=== PATIENT | male | born 1940 | race African-American/Black ===

== ENCOUNTER 2016-03-23 07:15 | Inpatient (IN) | payer OTHER, BC ==
[~2016-03-23 07:15] MED LIST: CHLORHEXIDINE GLUC HIBICLENS 118 ML BTL TP ONE; DEXAMETHASONE 10 MG/ML VIAL IVP ONE; ceFAZolin 2 GM/DEXTROSE 100 ML IV ONE
[2016-03-23] MEDS ORDERED: BACITRACIN 50,000 UNITS/10 ML SYR IRR ONE (07:24)
[2016-03-23] MEDS ORDERED: THROMBIN (RECOMBINANT) 20,000 UNIT VIAL TP ONE (07:24)
[2016-03-23] MEDS ORDERED: BUPIVACAINE/EPI 0.25% 30 ML SDV ONE (07:24)
[2016-03-23] MEDS ORDERED: DEXAMETHASONE 10 MG/ML VIAL ONE (09:29)
[2016-03-23] MEDS ORDERED: CEFAZOLIN 2 GM/DEXTROSE/100 ML BAG IV ONE (09:30)
[2016-03-23] MEDS ORDERED: fentaNYL 100 MCG/2 ML INJ ONE ×2 (10:26→15:09)
[2016-03-23] MEDS ORDERED: PROPOFOL/EMULSION 500 MG/50 ML BOTTLE IV ONE ×2 (10:26→14:56)
[2016-03-23] MEDS ORDERED: REMIFENTANIL HCL 1 MG VIAL ONE ×2 (10:26→13:00)
[2016-03-23] MEDS ORDERED: KETAMINE 100 MG/10 ML SYR IVP ONE (10:26)
[2016-03-23] MEDS ORDERED: SCOPOLAMINE HYDROBROMIDE 1.5 MG PATCH TD ONE (11:14)
[2016-03-23] MEDS ORDERED: SUCCINYLCHOLINE CHLORIDE*ANESTHESIA ONLY*200 MG/10 ML SYR IVP ONE (11:29)
[2016-03-23] MEDS ORDERED: epHEDrine SULFATE 10 MG/ML SYR ONE (12:10)
[2016-03-23] MEDS ORDERED: LR 1,000 ML IV ONE (12:22)
--- NOTE | 2016-03-23 15:04 | DX ---
Intraoperative Fluoroscopy of the Cervical Spine Clinical History: 75-year-old male undergoing a C4-C7 ACDF. Findings: Dr. Souleymane Sethi used 11.1 seconds of fluoroscopy time (exposure dose of 1.19 mGy), a nd a single spot matrix intraoperative image of the cervical spine was obtained at 2:34 p.m. identify ing anterior cervical diskectomy and fusion hardware from C4 to C7, with posterior alignment. Impression: Intraoperative fluoroscopy of the cervical spine.
--- NOTE | 2016-03-23 15:07 | POSTOPPROG ---
Post Op Note Date of Operation: 03/23/16 Surgeon: Souleymane Sethi Bakery Chef: Joshua Anesthesiologist: Belen Anesthesia: GET(General Endotracheal) Pre-op Diagnosis: Cervical stenosis Post-op Diagnosis: same Indication: Cervical myelopathy Procedure: C4-7 ACDF Findings: stenosis Inf/Abcess present in the surg proc area at time of surgery?: No EBL: 50-100 Drains: Alcon Monae (to bulb suction)
[2016-03-23] MEDS ORDERED: ACETAMINOPHEN 325 MG TAB PO PRN (15:08)
[2016-03-23] MEDS ORDERED: DIAZEPAM 5 MG TAB PO PRN (15:08)
[2016-03-23] MEDS ORDERED: morphINE PCA 30 MG/30 ML PCA IV PRN (15:08)
[2016-03-23] MEDS ORDERED: MAGNESIUM HYDROXIDE 30 ML UDCUP PO PRN (15:08)
[2016-03-23] MEDS ORDERED: ONDANSETRON 4 MG/2 ML VIAL IVP PRN (15:08)
[2016-03-23] MEDS ORDERED: DIAZEPAM 10 MG/2 ML SYR IVP PRN (15:08)
[2016-03-23] MEDS ORDERED: diphenhydrAMINE 25 MG CAP PO PRN (15:08)
[2016-03-23] MEDS ORDERED: MAG HYDROX/AL HYDROX/SIMETH 30 ML UDCUP PO PRN (15:08)
[2016-03-23] MEDS ORDERED: BISACODYL 10 MG SUPP PR PRN (15:08)
[2016-03-23] MEDS ORDERED: OXYCODONE/APAP 5/325 TAB PO PRN (15:08)
[2016-03-23] MEDS ORDERED: LACTULOSE 20 GM/30 ML UDCUP PO PRN (15:08)
[2016-03-23] MEDS ORDERED: NALOXONE HCL 0.4 MG/ML INJ IVP PRN (15:08)
[2016-03-23] MEDS ORDERED: ONDANSETRON DISINTEGRATING 4 MG TAB PO PRN (15:08)
[2016-03-23] MEDS ORDERED: HYDROmorphONE/DILAUDID 1 MG/ML SYR ONE ×3 (15:09→16:38)
[2016-03-23] MEDS ORDERED: ALBUTEROL 60 PUFFS/8 GM MDI IH PRN (15:17)
[2016-03-23] MEDS ORDERED: MIDAZOLAM 2 MG/2 ML VIAL ONE ×2 (15:20→16:04)
--- NOTE | 2016-03-23 15:25 | SOAPPROG ---
SOAP Progress Note Assessment/Plan: Assessment: status post C4-7 ACDF agitated, will get Versed per anesthesia Plan: CPM in PACU, NARAYAN to suction Transfer to floor per protocol Subjective: eyes open, agitated, not following commands, confused Objective: Vital Signs Temp Pulse Resp BP Pulse Ox 89 18 117/96 H 95 03/23/16 13:30 03/23/16 13:30 03/23/16 13:30 03/23/16 13:30 BP: 156/101 HR: 88 O2: 91% Neuro: Agitated, confused unable to follow commands but moves all extremities spontaneously with full strength ICD10 Worksheet Patient Problems: Problems Problem Status Diagnosed Chronic Disease Mgmt/Transitional Care Acute Chronic obstructive pulmonary disease with acute exacerbation Acute Hypoxia Acute
[2016-03-23] MEDS ORDERED: hydrALAZINE 20 MG/ML VIAL IVP PRN (16:18)
[2016-03-23] MEDS ORDERED: DIAZEPAM 10 MG/2 ML SYR ONE (16:47)
--- NOTE | 2016-03-23 16:49 | GOP ---
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 POSTOPERATIVE DIAGNOSIS: PROCEDURE PERFORMED: Multilevel surgical decompression, stabilization, partial C5 and C6 vertebral c orpectomies. FINDINGS: INDICATIONS: He presents now for multilevel surgical decompression and stabilization. Note that he a lso had spinal stenosis at C3-4 and we considered including that level as well, but because his sympt oms were not that severe and the 4 through 7 levels were worse, I thought that it was in his best int erest to leave that level out and see how he does first. If he has ongoing symptoms or shows signs of radiographic worsening over time, we can always go back and do that level later. I did not feel that it was in his best interest to do an extra level due to the increased risk of permanent swallowing d ifficulty and other issues. DESCRIPTION OF PROCEDURE: After informed was obtained, the patient was taken to the operating room a nd placed in supine position with the head in the halter retractor system. The anterior cervical barbara on was prepped and draped in a sterile fashion. After fluoroscopic localization of the correct levels , the subcutaneous and intramuscular tissues were infiltrated with local anesthesia. A horizontal incision was then created at the level of the C5-6 interspace. This was carried through the platysmal layer using monopolar electrocautery and carried in the avascular plane between the paty rnocleidomastoid and carotid sheath laterally and the strap muscles, trachea, esophagus medially down to the prevertebral fascia, which was carefully incised with Metzenbaum scissors. The very large ost eophyte especially at C5-6 but also at C4-5 and C6-7 were identified, and an extensive amount of time was spent removing these. The anatomy was very distorted and the dissection and exposure took approx imately 3-4 times as long as normal as well as the osteophytectomy. Eventually, I was able to define the normal anatomy and remove the extremely large osteophytes which were harvested for local autograf t. The distraction pins were then serially inserted first at C4-5, then at C5-6 and C6-7. During whic h time complete diskectomies were performed at each level with preparation of the endplates and remov al of the posterior longitudinal ligament and similarly protruding posterior osteophytes as well. Erlin e of these were loose, free floating pieces of bone that were very thoroughly and meticulously remove d. An extensive amount of drilling was required in order to remove the osteophytes and irregular endp lates and significant stenosis. Eventually, the C5 and C6 vertebral bodies were drilled out approxima tely 50% for a partial C5 and C6 vertebral corpectomy. Following adequate decompression, meticulous h emostasis was achieved and the wound, disk space and epidural space were copiously irrigated with ant ibiotic irrigation. The remaining endplates were carefully prepared and appropriately-sized lordotica lly fashioned structural PEEK interbody spacers packed with local autograft from the osteophytectomy/ partial corpectomies were placed in anterior to hold the graft in, which were then placed in the inte rspaces under fluoroscopic image guidance. The distraction was removed and an appropriately sized Stan tleLoc-P LNK anterior cervical plate was then placed from C4 through C7 with self-drilling screws. In traoperative biplanar fluoroscopy was utilized to verify good positioning. The remaining bone from th e partial corpectomies was then placed in the anterior hole of the plate and then gently packed in th e joints in order to enhance the likelihood of a fusion. The locking mechanism was engage d at all levels, after re-verification of good position of the plate and screws using biplanar fluoro scopy. A drain was placed. The subcutaneous and intramuscular tissues were re-infiltrated with local anesthe natalia and the wound was closed in a layered fashion using interrupted Vicryl sutures followed by Steri- Strips on the skin. /[id number]/MODL
[2016-03-23] MEDS ORDERED: DEXMEDETOMIDINE HCL 400 MCG in NS 100 ML IV SCH (17:30)
[2016-03-23] MEDS: METHOCARBAMOL 750 MG TAB PO PRN (18:31)
[2016-03-23] MEDS: POLYETHYLENE GLYCOL 3350 17 GM PKT PO SCH ×2 (18:33→22:47)
[2016-03-23] MEDS: NS W/ 20 KCl/L 1,000 ML IV SCH (18:34)
[2016-03-23] MEDS ORDERED: ALBUTEROL 3 ML DEYVIAL IH SCH (18:45)
[2016-03-23] MEDS ORDERED: ALBUTEROL 3 ML DEYVIAL IH PRN (19:46)
[2016-03-23] MEDS: Mometasone/Formoterol [Dulera 200 Mcg/5 Mcg Inhaler] 2 PUFFS) IH SCH (22:24)
[2016-03-23] MEDS: morphINE SR 15 MG TAB PO SCH (22:46)
[2016-03-23] MEDS: SENNOSIDES/DOCUSATE SODIUM TAB PO SCH (22:46)
[2016-03-23] MEDS: FAMOTIDINE 20 MG/NACL 50 ML IV SCH (22:46)
[2016-03-23] MEDS: metFORMIN HCL 850 MG TAB PO SCH (22:46)
[2016-03-24 06:32] LABS: % IMMATURE GRANULYOCYTES 0.3 % (0.0-1.1); ABSOLUTE IMMATURE GRANULOCYTES 0.04 10^3/uL (0.00-0.10); ADD DIFF? NO; ADD MORPH? NO; ADD SCAN? NO; ATYPICAL LYMPHOCYTE FLAG 0 (0-99); FRAGMENT RBC FLAG 0 (0-99); HEMATOCRIT 38.2 % (40.0-51.0); HEMOGLOBIN 12.6 g/dL (13.7-17.5); LEFT SHIFT FLG 0 (0-99); LIPEMIA HEMOLYSIS FLAG 80 (0-99); MEAN CELL HEMOGLOBIN 29.6 pg (27.9-34.1); MEAN CELL VOLUME 89.9 fL (81.5-99.8); MEAN PLATELET VOLUME 11.1 fL (8.7-11.7); PLATELET CLUMPS FLAG 0 (0-99); PLATELET COUNT 158 10^3/uL (150-400); RED BLOOD CELL COUNT 4.25 10^6/uL (4.40-6.38); RED CELL DISTRIBUTION WIDTH 13.5 % (11.5-15.2)
[2016-03-24 07:08] LABS: ANION GAP 10 mEq/L (8-16); CALCIUM 9.2 mg/dL (8.5-10.4); CARBON DIOXIDE 24 mEq/l (22-31); CHLORIDE 107 mEq/L (97-110); CREATININE 1.1 mg/dL (0.7-1.3); GLOMERULAR FILTRATION RATE > 60; GLUCOSE 134 mg/dL (70-100); POTASSIUM 4.1 mEq/L (3.5-5.2); SODIUM 141 mEq/L (134-144)
--- NOTE | 2016-03-24 08:52 | NEUSURGPN ---
Date of Surgery: 03/23/16 Post Op Day: 1 Assessment/Plan: Assessment: status post C4-7 ACDF doing well this AM, Agitation resolved, neuro stable feeling better overall stable for floor Plan: Transfer to Med/surg floor Continue NARAYAN to suction Needs cervical Xrays today Advance with PT/OT/ST D/W Dr. Das Subjective: Awake, alert, feeling better today Denies numbness or tingling Swallowing water "ok" Objective: NEURO: A+Ox4 follows commands, speech clear equal strength senst +LT Dressing : CDI NARAYAN: 230ml since surgery Urinary Catheter in Place: No Catheter Insertion Date: 03/23/16 Neurosurgery Physical Exam - Vitals, I&O, Labs I and O 03/23/16 03/24/16 03/25/16 05:59 05:59 05:59 Intake Total 3080 Output Total 1030 Balance 2049 Weight 86.183 kg Intake: Oral (ml) 260 IV Intake (ml) 1300 IV Infused (ml) 1520 ceFAZolin 1 GM/DEXTROSE 100 50 ml @ 200 mls/hr IV Q8HRS [facility] Rx#:[id number] Famotidine 20 mg/NaCl 50 50 ml @ 200 mls/hr IV Q12HRS [facility] Rx#:[id number] morphINE COMPUTER BOOKKEEPER See Protocol 10 IV PRN PRN Rx#: [id number] NS W/ 20 KCl/L 1,000 ml @ 1130 75 mls/hr IV CONT [facility] Rx #:[id number] Dexmedetomidine HCl 400 230 mcg In Ns 100 ml @ Titrate IV CONT [facility] Rx#: [id number] Output: Urine (ml) 650 Catheter 650 Estimated Blood Loss (ml) 150 Wound Drainage (ml) 230 #1 Left Anterior Neck 230 Vital Signs Temp Pulse Resp BP Pulse Ox 36.5 C 66 13 105/74 99 03/24/16 07:48 03/24/16 07:48 03/24/16 07:48 03/24/16 07:48 03/24/16 07:48 Laboratory Results 03/24/16 06:20 03/24/16 06:20 ICD10 Worksheet Patient Problems: Problems Problem Status Diagnosed Chronic Disease Mgmt/Transitional Care Acute Chronic obstructive pulmonary disease with acute exacerbation Acute Hypoxia Acute
[2016-03-24] MEDS ORDERED: TIOTROPIUM INHALER 18 MCG/DOSE 5 DOSE/MDI IH SCH (09:00)
[2016-03-24] MEDS: ATORVASTATIN CALCIUM 40 MG TAB PO SCH (10:04)
[2016-03-24] MEDS: metFORMIN HCL 850 MG TAB PO SCH ×2 (10:04→20:11)
[2016-03-24] MEDS: ENALAPRIL MALEATE 10 MG TAB PO SCH (10:20)
[2016-03-24] MEDS: morphINE SR 15 MG TAB PO SCH ×2 (10:51→20:11)
[2016-03-24] MEDS: FAMOTIDINE 20 MG/NACL 50 ML IV SCH ×2 (10:51→20:02)
[2016-03-24] MEDS: NEBIVOLOL HCL 5 MG TAB PO SCH (10:53)
[2016-03-24] MEDS: SENNOSIDES/DOCUSATE SODIUM TAB PO SCH ×2 (10:53→20:11)
[2016-03-24] MEDS: HYDROCHLOROTHIAZIDE 25 MG TAB PO SCH (10:57)
[2016-03-24] MEDS: Mometasone/Formoterol [Dulera 200 Mcg/5 Mcg Inhaler] 2 PUFFS) IH SCH ×2 (11:00→19:42)
[2016-03-24] MEDS: TIOTROPIUM INHALER 18 MCG/DOSE 5 DOSE/MDI IH SCH (11:00)
[2016-03-24] MEDS: POLYETHYLENE GLYCOL 3350 17 GM PKT PO SCH ×3 (11:18→20:10)
[2016-03-24] MEDS: METHOCARBAMOL 750 MG TAB PO PRN ×2 (11:29→20:11)
--- NOTE | 2016-03-24 13:18 | DX ---
Cervical Spine, Two Views History: Follow up fusion. Comparison: Intraoperative fluoroscopy March 23, 2016, MR cervical spine March 06, 2016. Findings: ACDF hardware from C4 through C7 is in expected position, with intervertebral graft materia l at all levels in expected positions. Trace anterolisthesis of C2 on C3 and C3 on C4 is unchanged. M ild vertebral and uncovertebral spondylosis at C3-C4 is noted. Moderate facet hypertrophy is present from C2 through C4. A prevertebral drain and diffuse prevertebral soft tissue swelling are noted. Car otid atherosclerosis is present, right greater than left. Impressions 1. Expected changes of ACDF from C4 through C7 2. Additional findings as above.
[2016-03-24] MEDS: NS W/ 20 KCl/L 1,000 ML IV SCH ×2 (16:19→18:08)
--- NOTE | 2016-03-24 16:20 | PDINTPN ---
Life Coach Progress Note Assessment/Plan: Assessment: #Neck surgery with an excellent post op course #COPD moderately severe, without dyspnea or cough #Dysphagia, Plan: nebs prn NPO except for applesauce. This should improve over the next few days 03/24/16 16:18 Subjective: Thirsty Objective: Vital Signs Temp Pulse Resp BP Pulse Ox 37.4 C 79 16 127/69 H 96 03/24/16 16:00 03/24/16 16:00 03/24/16 16:00 03/24/16 16:00 03/24/16 16:00 Laboratory Results 03/24/16 06:20 03/24/16 06:20 03/23/16 03/24/16 03/25/16 05:59 05:59 05:59 Intake Total 3080 Output Total 1030 100 Balance 2049 Physical Exam - Physical Exam General Appearance: alert, mild distress EENT: normal ENT inspection Neck: other (Hard collar) Respiratory: lungs clear, decreased breath sounds Cardiac/Chest: regular rate, rhythm Abdomen: non-tender, soft Back: Normal inspection Skin: warm/dry Lymphatic: no adenopathy Extremities: non-tender, No pedal edema Neuro/Psych: alert, oriented x 3 ICD10 Worksheet Patient Problems: Problems Problem Status Diagnosed Chronic Disease Mgmt/Transitional Care Acute Chronic obstructive pulmonary disease with acute exacerbation Acute Hypoxia Acute
[2016-03-24] MEDS: HYDROCODONE/APAP 5/325 TAB PO PRN (21:28)
[2016-03-25] MEDS: NS W/ 20 KCl/L 1,000 ML IV SCH ×3 (05:13→20:53)
[2016-03-25] MEDS: METHOCARBAMOL 750 MG TAB PO PRN ×3 (05:13→20:41)
[2016-03-25] MEDS: HYDROCODONE/APAP 5/325 TAB PO PRN (05:14)
--- NOTE | 2016-03-25 07:47 | NEUSURGPN ---
Assessment/Plan: Assessment: status post C4-7 ACDF Plan: dc NARAYAN drain Cervical xrays with intact hardware Optimize pain management Advance with PT/OT/ST D/W Dr. Das Subjective: Pain improved with current regiment Objective: NAD A&Ox3 MAEx4 5/5 and equal in BUE and BLE. Neck soft, flat Catheter Insertion Date: 03/23/16 - Physician Discussed Patient with DrBelen: Jossie Roldan Physical Exam - Vitals, I&O, Labs I and O 03/24/16 03/25/16 03/26/16 05:59 05:59 05:59 Intake Total 3080 950 Output Total 1030 1030 Balance 2049 Weight 86.183 kg Intake: Oral (ml) 260 IV Intake (ml) 1300 IV Infused (ml) 1520 950 ceFAZolin 1 GM/DEXTROSE 100 50 ml @ 200 mls/hr IV Q8HRS [facility] Rx#:[id number] Famotidine 20 mg/NaCl 50 50 50 ml @ 200 mls/hr IV Q12HRS [facility] Rx#:[id number] morphINE HERD TESTER See Protocol 10 IV PRN PRN Rx#: [id number] NS W/ 20 KCl/L 1,000 ml @ 1130 900 75 mls/hr IV CONT [facility] Rx #:[id number] Dexmedetomidine HCl 400 230 mcg In Ns 100 ml @ Titrate IV CONT [facility] Rx#: [id number] Output: Urine (ml) 650 1000 Catheter 650 Toilet 100 Urinal 900 Estimated Blood Loss (ml) 150 Wound Drainage (ml) 230 30 #1 Left Anterior Neck 230 30 Other: Number of Voids Toilet 1 Urinal 2 Vital Signs Temp Pulse Resp BP Pulse Ox 36.6 C 72 16 141/84 H 97 03/25/16 05:07 03/25/16 05:07 03/25/16 05:07 03/25/16 05:07 03/25/16 05:07 Laboratory Results 03/24/16 06:20 03/24/16 06:20 ICD10 Worksheet Patient Problems: Problems Problem Status Diagnosed Chronic Disease Mgmt/Transitional Care Acute Chronic obstructive pulmonary disease with acute exacerbation Acute Hypoxia Acute
[2016-03-25] MEDS: TIOTROPIUM INHALER 18 MCG/DOSE 5 DOSE/MDI IH SCH (08:53)
[2016-03-25] MEDS: Mometasone/Formoterol [Dulera 200 Mcg/5 Mcg Inhaler] 2 PUFFS) IH SCH ×2 (08:53→20:38)
[2016-03-25] MEDS: ENOXAPARIN 40 MG/0.4 ML SYR SC SCH (09:13)
[2016-03-25] MEDS: HYDROCHLOROTHIAZIDE 25 MG TAB PO SCH (09:13)
[2016-03-25] MEDS: NEBIVOLOL HCL 5 MG TAB PO SCH (09:13)
[2016-03-25] MEDS: SENNOSIDES/DOCUSATE SODIUM TAB PO SCH ×2 (09:14→20:41)
[2016-03-25] MEDS: morphINE SR 15 MG TAB PO SCH ×2 (09:14→20:41)
[2016-03-25] MEDS: POLYETHYLENE GLYCOL 3350 17 GM PKT PO SCH ×3 (09:14→20:41)
[2016-03-25] MEDS: ATORVASTATIN CALCIUM 40 MG TAB PO SCH (09:14)
[2016-03-25] MEDS: metFORMIN HCL 850 MG TAB PO SCH ×2 (10:18→20:40)
[2016-03-25] MEDS: FAMOTIDINE 20 MG TAB PO SCH ×2 (10:18→20:41)
[2016-03-25] MEDS: ENALAPRIL MALEATE 10 MG TAB PO SCH (10:18)
[2016-03-25] MEDS: FAMOTIDINE 20 MG/NACL 50 ML IV SCH (10:28)
--- NOTE | 2016-03-25 16:29 | PDINTPN ---
Shoe Repairer Helper Progress Note Assessment/Plan: Assessment: #Neck surgery with an excellent post op course #COPD moderately severe, without dyspnea or cough. He feels his lungs are good #Dysphagia, but he is eating and drinking well today Plan: nebs prn Ambulation 03/25/16 16:27 Subjective: No complaints Objective: Vital Signs Temp Pulse Resp BP Pulse Ox 37.2 C 76 17 158/91 H 94 03/25/16 15:47 03/25/16 15:47 03/25/16 15:47 03/25/16 15:47 03/25/16 15:47 Laboratory Results 03/24/16 06:20 03/24/16 06:20 03/24/16 03/25/16 03/26/16 05:59 05:59 05:59 Intake Total 3080 950 Output Total 1030 1030 425 Balance 2049 Physical Exam - Physical Exam General Appearance: no apparent distress EENT: normal ENT inspection Neck: other (hard collar) Respiratory: lungs clear Cardiac/Chest: regular rate, rhythm Abdomen: non-tender Back: Normal inspection Skin: warm/dry Lymphatic: no adenopathy Extremities: non-tender, No pedal edema Neuro/Psych: alert ICD10 Worksheet Patient Problems: Problems Problem Status Diagnosed Chronic Disease Mgmt/Transitional Care Acute Chronic obstructive pulmonary disease with acute exacerbation Acute Hypoxia Acute
[2016-03-26] MEDS: Mometasone/Formoterol [Dulera 200 Mcg/5 Mcg Inhaler] 2 PUFFS) IH SCH (08:31)
[2016-03-26] MEDS: TIOTROPIUM INHALER 18 MCG/DOSE 5 DOSE/MDI IH SCH (08:31)
[2016-03-26 08:41] VITALS: RESP 14
--- NOTE | 2016-03-26 09:01 | NEUSURGPN ---
Assessment/Plan: 75 y M status post C4-7 ACDF - overall doing much better with his mentation - pain appears to be well-controlled - I have stopped his Morphine products per family request as it made him confused and agitated. - continue with PT/OT/ST - okay to dc home this morning if cleared by Speech/swallow and taking adequate intake PO - scripts for [place] and Valium/Robaxin on his chart for home (scripts for Morphone products have been removed) Subjective: Pain and swallowing and mentation improved with current regiment Objective: Cervical collar in place NAD A&Ox3 MAEx4 5/5 and equal in BUE and BLE. Neck soft, flat Anterior dressing and wound are clean, dry, and intact. Urinary Catheter in Place: No Catheter Insertion Date: 03/23/16 Neurosurgery Physical Exam - Vitals, I&O, Labs I and O 03/25/16 03/26/16 03/27/16 05:59 05:59 05:59 Intake Total 950 1527 Output Total 1030 1625 Balance -80 -98 Intake: Oral (ml) 340 IV Infused (ml) 950 1187 Famotidine 20 mg/NaCl 50 50 ml @ 200 mls/hr IV Q12HRS [facility] Rx#:[id number] NS W/ 20 KCl/L 1,000 ml @ 900 1187 75 mls/hr IV CONT [facility] Rx #:[id number] Output: Urine (ml) 1000 1625 Toilet 100 Urinal 900 1625 Wound Drainage (ml) 30 #1 Left Anterior Neck 30 Other: Number of Voids Toilet 1 2 1 Urinal 2 Vital Signs Temp Pulse Resp BP Pulse Ox 36.8 C 89 14 158/95 H 93 03/25/16 22:49 03/26/16 08:35 03/26/16 08:35 03/26/16 04:36 03/26/16 08:35 Laboratory Results 03/24/16 06:20 03/24/16 06:20 ICD10 Worksheet Patient Problems: Problems Problem Status Diagnosed Chronic Disease Mgmt/Transitional Care Acute Chronic obstructive pulmonary disease with acute exacerbation Acute Hypoxia Acute
[2016-03-26] MEDS: NEBIVOLOL HCL 5 MG TAB PO SCH (09:32)
[2016-03-26] MEDS: POLYETHYLENE GLYCOL 3350 17 GM PKT PO SCH (09:32)
[2016-03-26] MEDS: metFORMIN HCL 850 MG TAB PO SCH (09:32)
[2016-03-26] MEDS: HYDROCHLOROTHIAZIDE 25 MG TAB PO SCH (09:33)
[2016-03-26] MEDS: SENNOSIDES/DOCUSATE SODIUM TAB PO SCH (09:33)
[2016-03-26] MEDS: FAMOTIDINE 20 MG TAB PO SCH (09:33)
[2016-03-26] MEDS: ENOXAPARIN 40 MG/0.4 ML SYR SC SCH (09:33)
[2016-03-26] MEDS: ENALAPRIL MALEATE 10 MG TAB PO SCH (09:33)
[2016-03-26] MEDS: ATORVASTATIN CALCIUM 40 MG TAB PO SCH (09:43)
[2016-03-26 12:10] VITALS: BP 142/87; PULSE 81; TEMP 99; O2SAT 92
== END 2016-03-26 15:07 | disposition home or self-care (01) | DRG 473 ==
LOC: F3N 09:01 → OBSVTOIN 15:09 → F2N 18:08 → F3N 03-24 18:02
PROVIDERS: ADMIT Neurological Surgery; ATTEND Neurological Surgery
PROC: 00NW0ZZ Release Cervical Spinal Cord, Open Approach (ICD-10-PCS; principal; 2016-03-23 11:45)
PROC: 0RG20A0 Fusion of 2 or more Cervical Vertebral Joints with Interbody Fusion Device, Anterior Approach, Anterior Column, Open Approach (ICD-10-PCS; principal; 2016-03-23 11:45)
DX: M47.12 Other spondylosis with myelopathy, cervical region (principal); M50.30 Other cervical disc degeneration, unspecified cervical region; M50.20 Other cervical disc displacement, unspecified cervical region; I25.10 Atherosclerotic heart disease of native coronary artery without angina pectoris; I35.0 Nonrheumatic aortic (valve) stenosis; J44.9 Chronic obstructive pulmonary disease, unspecified; R13.10 Dysphagia, unspecified; E78.5 Hyperlipidemia, unspecified; E11.9 Type 2 diabetes mellitus without complications; Z85.6 Personal history of leukemia
CPT/HCPCS: 92526-GN; 92610-GN; 97001-GP; 97003-GO; 97116-GP; 97535-GO; C1713; G8978-GP-CI; G8978-GP-CJ; G8979-GP-CI; G8980-GP-CI; G8987-GO-CL; G8988-GO-CI; G8996-GN-CL; G8997-GN-CI; J0330; J0690; J1170; J1650; J2250; J2270; J2405; J2704; J3010

== ENCOUNTER 2016-05-04 05:41 | Inpatient (IN) | payer OTHER, BC ==
[2016-05-04] MEDS ORDERED: LIDOCAINE 1% 5 ML SDV ID PRN (05:52)
[2016-05-04] MEDS ORDERED: LR 1,000 ML IV ONE (05:52)
[2016-05-04] MEDS ORDERED: LIDOCAINE 1% 5 ML SDV ONE (05:55)
[2016-05-04] MEDS ORDERED: fentaNYL 100 MCG/2 ML INJ IT ONE ×3 (06:00→14:30)
[2016-05-04] MEDS ORDERED: DEXAMETHASONE 4 MG/ML VIAL IVP ONE ×2 (06:00)
[2016-05-04] MEDS ORDERED: morphINE PF 5 MG/10 ML INJ IT ONE ×3 (06:00→14:30)
[2016-05-04] MEDS ORDERED: ceFAZolin 2 GM/DEXTROSE 100 ML IV ONE ×2 (06:00)
[2016-05-04] MEDS ORDERED: CHLORHEXIDINE GLUC HIBICLENS 118 ML BTL TP ONE ×2 (06:00)
[2016-05-04] MEDS ORDERED: THROMBIN (RECOMBINANT) 20,000 UNIT VIAL TP ONE ×2 (06:30→10:21)
[2016-05-04] MEDS ORDERED: BUPIVACAINE 0.25% 30 ML SDV ONE (06:30)
[2016-05-04] MEDS ORDERED: BACITRACIN 50,000 UNITS/10 ML SYR IRR ONE ×3 (06:30→13:08)
[2016-05-04] MEDS ORDERED: BUPIVACAINE/EPI 0.25% 30 ML SDV ONE (06:30)
[2016-05-04] MEDS ORDERED: CITRATE DEXTROSE SOLN 500 ML BAG ONE (06:31)
[2016-05-04] MEDS ORDERED: PROPOFOL/EMULSION 500 MG/50 ML BOTTLE IV ONE ×3 (06:56→10:17)
[2016-05-04] MEDS ORDERED: fentaNYL 100 MCG/2 ML INJ ONE ×3 (06:56→12:20)
[2016-05-04] MEDS ORDERED: REMIFENTANIL HCL 1 MG VIAL ONE ×2 (07:49→10:19)
[2016-05-04] MEDS ORDERED: INSULIN REGULAR HUMAN 100 UNIT/ML ONE (10:39)
[2016-05-04] MEDS ORDERED: morphINE PF 5 MG/10 ML INJ ONE (12:19)
[2016-05-04] MEDS ORDERED: HYDROmorphONE/DILAUDID 2 MG/ML SYR ONE (12:34)
[2016-05-04] MEDS: CLOPIDOGREL BISULFATE 75 MG TAB PO SCH (14:00)
[2016-05-04] MEDS ORDERED: ACETAMINOPHEN 325 MG TAB PO PRN (14:07)
[2016-05-04] MEDS ORDERED: oxyCODONE IR 5 MG TAB PO PRN (14:07)
[2016-05-04] MEDS ORDERED: DIAZEPAM 5 MG TAB PO PRN (14:07)
[2016-05-04] MEDS ORDERED: ONDANSETRON DISINTEGRATING 4 MG TAB PO PRN (14:07)
[2016-05-04] MEDS ORDERED: BISACODYL 10 MG SUPP PR PRN (14:07)
[2016-05-04] MEDS ORDERED: diphenhydrAMINE 25 MG CAP PO PRN (14:07)
[2016-05-04] MEDS ORDERED: HYDROmorphONE/DILAUDID 6 MG/30 ML PCA IV PRN (14:07)
[2016-05-04] MEDS ORDERED: NALOXONE HCL 0.4 MG/ML INJ IVP PRN (14:07)
[2016-05-04] MEDS ORDERED: LACTULOSE 20 GM/30 ML UDCUP PO PRN (14:07)
--- NOTE | 2016-05-04 14:13 | POSTOPPROG ---
Post Op Note Date of Operation: 05/04/16 Surgeon: Souleymane Sethi Coke Handling Supervisor: Harvinder Anesthesiologist: Lee Anesthesia: GET(General Endotracheal) Pre-op Diagnosis: lumar DJD Post-op Diagnosis: same Indication: low back pain, left leg pain Procedure: L2-S1 TLIF Findings: DJD/hnp/stenosis Inf/Abcess present in the surg proc area at time of surgery?: No EBL: Greater than 1000 (1400 ml EBL) Complications: None Drains: Alcon Monae
--- NOTE | 2016-05-04 14:15 | SOAPPROG ---
SOAP Progress Note Assessment/Plan: Assessment: 75 yo M sp L2-S1 TLIF Plan: stable PT/OT follow hg/hct please call with neuro changes 05/04/16 14:13 Subjective: + back pain, no leg pain Objective: somnolent awakes to verbal stimuli MALIK x 4 but not to command + light touch ICD10 Worksheet Patient Problems: Problems Problem Status Diagnosed Chronic Disease Mgmt/Transitional Care Acute Chronic obstructive pulmonary disease with acute exacerbation Acute Fusion of spine of lumbar region Acute Hypoxia Acute - ICD10 Problem Qualifiers (1) Fusion of spine of lumbar region
--- NOTE | 2016-05-04 14:54 | DX ---
Intraoperative fluoroscopy. 05/04/2016 History: Lumbar spine surgery Discussion: 49 seconds of fluoroscopy time were utilized by Dr. Sethi during lumbar spine ins trumentation and fusion. Radiographs obtained during the procedure demonstrate placement of bilateral pedicle screws at L2-S1 with posterior david fixation and intervertebral graft.. Impression: Intraoperative fluoroscopy during lumbar spine instrumentation and fusion..
[2016-05-04] MEDS: NS W/ 20 KCl/L 1,000 ML IV SCH (15:41)
[2016-05-04] MEDS: POLYETHYLENE GLYCOL 3350 17 GM PKT PO SCH ×2 (15:41→21:50)
[2016-05-04] MEDS ORDERED: ALBUTEROL 60 PUFFS/8 GM MDI IH PRN (15:57)
[2016-05-04] MEDS: ALBUTEROL SULFATE 0.63 MG IH SCH ×2 (16:22→16:32)
[2016-05-04] MEDS: ONDANSETRON 4 MG/2 ML VIAL IVP PRN ×2 (16:30→21:50)
[2016-05-04] MEDS ORDERED: ALBUTEROL 3 ML DEYVIAL IH PRN (16:47)
--- NOTE | 2016-05-04 16:56 | GOP ---
[f rep st] OPERATIVE REPORT DATE OF OPERATION: 05/04/2016 SURGEON: Souleymane Sethi MD [employer]: [employer]. ANESTHESIA: General endotracheal. PREOPERATIVE DIAGNOSIS: Severe multilevel lumbar degenerative scoliosis with severe spinal stenosis and multilevel disk herniations. Intractable back and left leg pain, failed conservative care. High risk surgical candidate given age of 75 years, comorbidities, and required surgical intervention. POSTOPERATIVE DIAGNOSIS: Severe multilevel lumbar degenerative scoliosis with severe spinal stenosis and multilevel disk herniations. Intractable back and left leg pain, failed conservative care. Hig h risk surgical candidate given age of 75 years, comorbidities, and required surgical intervention. PROCEDURE PERFORMED: Left-sided L2-3, L3-4, L4-5, and L5-S1 far lateral transfacet transpedicular de compression with L2 through S1 posterior segmental (pedicle screw and Axle device) fixation and poste rolateral fusion with local autograft and bone morphogenic protein and morselized allograft L2-3, L3- 4, L4-5, and L5-S1 posterior/transforaminal lumbar interbody fusion with 2 structural PEEK interbody spacers, local autograft and bone morphogenic protein for L2-3, L3-4, L4-5, and L5-S1 posterior/trans foraminal lumbar interbody fusions. Use of intraoperative microscopy, fluoroscopy, and computer volu metric stereotactic navigation with intraoperative neurophysiologic testing. Injection of intratheca l narcotic analgesics for postoperative pain control. FINDINGS: ESTIMATED BLOOD LOSS: 1400 cc. INDICATIONS: The patient is a 75-year-old male with severe multilevel lumbar degenerative joint dise ase, some scoliosis, and severe spinal stenosis, lateral recess and foraminal impingement, secondary to severe facet hypertrophy and multiple disk herniations. He presents now for a multilevel lumbar d ecompression and stabilization after failing extensive conservative care. DESCRIPTION OF PROCEDURE: After informed consent was obtained, patient was taken to the operating ro om and placed in the prone position on the Alcon table. The lumbosacral area was prepped and drape d in a sterile fashion. After fluoroscopic localization of the correct levels, the subcutaneous and intramuscular tissues were infiltrated with local anesthesia. A midline linear incision was then cre ated from approximately L2 through S1. This was carried down to the fascial layer, which was then in cised using monopolar electrocautery and carried in the subperiosteal plane along the spinous process es and lamina bilaterally. Intraoperative fluoroscopy was again utilized to verify the correct level s. Following this, the dissection was carried out over the facet joints to the transverse processes. The microscope was then brought in, and after re-verification of the correct levels, left-sided far lateral transfacet transpedicular decompressions were performed with complete unroofing of the facet joints and neural foramina. Note that the patient had prior laminotomy defects at L4-5 and L5-S1, s o redo hemilaminotomies were performed at those levels. There was an extensive amount of scar tissue , which required meticulous dissection under high-power microscopy. This was very time-consuming, an d the patient was slightly more oozy than normal, and he bled a fair bit partially due to the signifi cant amount of scar tissue. Care was taken to very carefully outline the nerve roots and thecal sac at each of the levels, including L2-3, L3-4, L4-5 and L5-S1. Following adequate decompression, the [facility] neuron[facility]igational system was brought in, and using computer volumetric stereotactic navigation , pedicle screws were placed at L2, L3, L4, L5, and S1 bilaterally. Each individual screw was tested neurophysiologically with monopolar electrostimulation, and interpretation of the potentials by the surgeon. Serial short rods were then placed first at L5-S1, then at L4-5, then at L3-4, then at L2-3 , during which time each of the individual levels were under distraction. Complete diskectomies were performed at each level with preparation of the endplates and placement of 2 structural PEEK interbo dy spacers, local autograft and bone morphogenic protein for L2-3, L3-4, L4-5 and L5-S1 posterior/tra nsforaminal lumbar interbody fusions. Note that there was significant lateral recess, neural foramin al, and central canal stenosis at all of the 4 levels. There was a very large disk herniation on the left at the L3-4 level that extended across the midline and required an extensive amount of careful dissection under high-power microscopy in order to remove all of this large free fragment disk hernia tion. Following placement of all the screws and interbody spacers, longer rods were then contoured a nd placed and secured under maximal lordosis and a slight amount of compression across each interspac e in order to facilitate bony union and to minimize the potential for posterior graft migration. Fol lowing re-verification of good positioning of the screws, rods, and interbody spacers using biplanar fluoroscopy, axial devices were placed at L2-3 and L5-S1 due to the fact that the patient had somewha t soft bone and I was concerned about the risk of screw pull out, hardware failure, and nonunion. Fo llowing this, 200 mcg of Duramorph, along with 50 mcg of fentanyl were injected intrathecally for pos toperative pain control. The right-sided remaining lamina and facet joints were extensively decortic ated, the residual local autograft along with bone morphogenic protein was placed out laterally for p osterolateral fusion from L2 through S1. 15 cc of morselized allograft were also added to this. A d rain was then placed. The subcutaneous and intramuscular tissues were re-infiltrated with local anes thesia, and the wound was closed in a layered fashion using interrupted Vicryl sutures followed by St rosie-Strips on the skin. COMPLICATIONS: None. DISPOSITION: The patient was extubated and transferred to the recovery room in stable condition. /[id number]/MODL
[2016-05-04] MEDS ORDERED: NS BOLUS 1000 ML (Wide open) IV ONE (17:30)
[2016-05-04 18:04] LABS: HEMATOCRIT 34.3 % (40.0-51.0); HEMOGLOBIN 10.6 g/dL (13.7-17.5); MEAN CELL HEMOGLOBIN 28.3 pg (27.9-34.1); MEAN CELL HEMOGLOBIN CONCENTR. 30.9 g/dL (32.4-36.7); MEAN CELL VOLUME 91.5 fL (81.5-99.8); RED BLOOD CELL COUNT 3.75 10^6/uL (4.40-6.38); RED CELL DISTRIBUTION WIDTH 13.6 % (11.5-15.2)
[2016-05-04 18:36] LABS: ANION GAP 7 mEq/L (8-16); CALCIUM 9.2 mg/dL (8.5-10.4); CARBON DIOXIDE 24 mEq/l (22-31); CHLORIDE 109 mEq/L (97-110); CREATININE 1.1 mg/dL (0.7-1.3); GLOMERULAR FILTRATION RATE > 60; GLUCOSE 179 mg/dL (70-100); SODIUM 140 mEq/L (134-144)
[2016-05-04] MEDS: morphINE SR 15 MG TAB PO SCH (19:45)
[2016-05-04] MEDS: METHOCARBAMOL 750 MG TAB PO PRN (19:45)
[2016-05-04] MEDS: FAMOTIDINE 20 MG TAB PO SCH (19:46)
[2016-05-04] MEDS: SENNOSIDES/DOCUSATE SODIUM TAB PO SCH (19:46)
[2016-05-04] MEDS: DIAZEPAM 10 MG/2 ML SYR IVP PRN (20:00)
[2016-05-04] MEDS ORDERED: FAMOTIDINE 20 MG/NACL 50 ML IV SCH (21:00)
[2016-05-04] MEDS: Mometasone/Formoterol [Dulera 200 Mcg/5 Mcg Inhaler] 2 PUFFS IH SCH (21:25)
[2016-05-04] MEDS: HYDROmorphONE/DILAUDID 1 MG/ML SYR IVP PRN (22:19)
[2016-05-05] MEDS: NS W/ 20 KCl/L 1,000 ML IV SCH (01:09)
[2016-05-05] MEDS: DIAZEPAM 10 MG/2 ML SYR IVP PRN (01:59)
[2016-05-05] MEDS: HYDROmorphONE/DILAUDID 1 MG/ML SYR IVP PRN ×4 (05:18→21:59)
[2016-05-05 05:20] LABS: % IMMATURE GRANULYOCYTES 0.7 % (0.0-1.1); ABSOLUTE IMMATURE GRANULOCYTES 0.13 10^3/uL (0.00-0.10); ADD DIFF? NO; ADD MORPH? NO; ADD SCAN? NO; ATYPICAL LYMPHOCYTE FLAG 10 (0-99); FRAGMENT RBC FLAG 0 (0-99); HEMATOCRIT 31.2 % (40.0-51.0); HEMOGLOBIN 9.7 g/dL (13.7-17.5); LEFT SHIFT FLG 10 (0-99); LIPEMIA HEMOLYSIS FLAG 80 (0-99); MEAN CELL HEMOGLOBIN 29.7 pg (27.9-34.1); MEAN CELL HEMOGLOBIN CONCENTR. 31.1 g/dL (32.4-36.7); MEAN CELL VOLUME 95.4 fL (81.5-99.8); MEAN PLATELET VOLUME 11.9 fL (8.7-11.7); PLATELET CLUMPS FLAG 0 (0-99); PLATELET COUNT 139 10^3/uL (150-400); RED BLOOD CELL COUNT 3.27 10^6/uL (4.40-6.38); RED CELL DISTRIBUTION WIDTH 13.9 % (11.5-15.2)
[2016-05-05 05:33] LABS: ANION GAP 8 mEq/L (8-16); CALCIUM 9.1 mg/dL (8.5-10.4); CARBON DIOXIDE 24 mEq/l (22-31); CHLORIDE 111 mEq/L (97-110); CREATININE 1.1 mg/dL (0.7-1.3); GLOMERULAR FILTRATION RATE > 60; GLUCOSE 124 mg/dL (70-100); POTASSIUM 4.9 mEq/L (3.5-5.2); SODIUM 143 mEq/L (134-144)
[2016-05-05] MEDS ORDERED: PROMETHAZINE HCL 25 MG/ML INJ IVP PRN (07:50)
[2016-05-05] MEDS ORDERED: ENALAPRIL PO SCH (09:00)
[2016-05-05] MEDS ORDERED: [UNRECOGNIZED DRUG - OTHER] PO SCH (09:00)
[2016-05-05] MEDS ORDERED: HYDROCHLOROTHIAZIDE PO SCH (09:00)
[2016-05-05] MEDS ORDERED: NEBIVOLOL HCL 5 MG TAB PO SCH (09:00)
[2016-05-05] MEDS: ATORVASTATIN CALCIUM 40 MG TAB PO SCH (09:03)
[2016-05-05] MEDS: NEBIVOLOL 2.5 MG PO SCH (09:04)
[2016-05-05] MEDS: TIOTROPIUM INHALER 18 MCG/DOSE 5 DOSE/MDI IH SCH (09:05)
[2016-05-05] MEDS: Mometasone/Formoterol [Dulera 200 Mcg/5 Mcg Inhaler] 2 PUFFS IH SCH ×2 (09:07→21:59)
[2016-05-05] MEDS: amLODIPine BESYLATE 5 MG TAB PO SCH (09:12)
[2016-05-05] MEDS: FAMOTIDINE 20 MG TAB PO SCH ×2 (09:12→19:51)
[2016-05-05] MEDS: HYDROCHLOROTHIAZIDE 25 MG TAB PO SCH (09:13)
[2016-05-05] MEDS: ENALAPRIL MALEATE 10 MG TAB PO SCH (09:13)
[2016-05-05] MEDS: morphINE SR 15 MG TAB PO SCH ×2 (09:13→19:51)
[2016-05-05] MEDS: ENOXAPARIN 40 MG/0.4 ML SYR SC SCH (09:13)
[2016-05-05] MEDS: SENNOSIDES/DOCUSATE SODIUM TAB PO SCH ×2 (09:13→19:51)
[2016-05-05] MEDS: POLYETHYLENE GLYCOL 3350 17 GM PKT PO SCH ×3 (09:13→19:57)
--- NOTE | 2016-05-05 09:27 | NEUSURGPN ---
Date of Surgery: 05/04/16 Post Op Day: 1 Assessment/Plan: POD #1 s/p L2-S1 TLIF left hip pain resolved, Mentation clear Pain well controlled low urine output Plan: Bolus with 1 liter NS and then maintenance rate of 150ml/hr, remove K in IV fluids due to K of 4.9 this AM PT/OT as tolerated LSO when out of bed COntinue NARAYAN drain Lovenox starts today LUmbar xrays when he can tolerate Subjective: in bed, pain well controlled. he reports his left hip pain has resolved denies new numbness, tingling or weakness. Objective: NEURO DELATORRE, SEns +LT Dressing: Reinforced overnight. some mild blood saturation NARAYAN: 490ML Urinary Catheter in Place: Yes Urinary Catheter Indication: Surgical Requirement (will remove Medina today) Catheter Insertion Date: 05/04/16 - Physician Discussed Patient with : Jossie Neurosurgery Physical Exam - Vitals, I&O, Labs I and O 05/04/16 05/05/16 05/06/16 05:59 05:59 05:59 Intake Total 7571 Output Total 2950 Balance 4621 Weight 86.183 kg Intake: Oral (ml) 200 IV Intake (ml) 4750 IV Infused (ml) 1921 ceFAZolin 1 GM/DEXTROSE 50 50 ml @ 200 mls/hr IV Q8H [facility] Rx#:[id number] NS W/ 20 KCl/L 1,000 ml @ 1871 100 mls/hr IV CONT [facility] Rx#:[id number] Autologous Blood (ml) 700 Output: Urine (ml) 960 Catheter 960 Estimated Blood Loss (ml) 1400 Emesis (ml) 100 Wound Drainage (ml) 490 Left Back Alcon Monae 490 Vital Signs Temp Pulse Resp BP Pulse Ox 36.6 C 92 17 109/58 L 92 05/04/16 22:00 05/05/16 08:00 05/05/16 08:00 05/05/16 08:00 05/05/16 08:00 Laboratory Results 05/05/16 05:07 05/05/16 05:07 ICD10 Worksheet Patient Problems: Problems Problem Status Diagnosed Chronic Disease Mgmt/Transitional Care Acute Chronic obstructive pulmonary disease with acute exacerbation Acute Fusion of spine of lumbar region Acute Hypoxia Acute
[2016-05-05] MEDS: NS 1,000 ML IV SCH ×2 (09:37→19:50)
[2016-05-05] MEDS ORDERED: NS 1,000 ML IV ONE (10:00)
[2016-05-05] MEDS: HYDROCODONE/APAP 10/325 TAB PO PRN (13:23)
--- NOTE | 2016-05-05 16:10 | PDGENHP ---
History and Physical History and Physical: CONSULT AND PHYSICAL ADMISSION NOTE CC: I AM ASKED BY DR. JOHNSTON TO EVALUATE AND ASSIST IN THE CARE THIS PATIENT WITH MULTIPLE MEDICAL ISSUES AFTER SPINE SURGERY HISTORY: the patient was admitted yesterday with ongoing sciatica issues and underwent a L2-S1 TLIF surgery without complication. He was watched overnight in the ICU and now is transferred to the orthopedic floor. The patient tells me that his back is sore but his sciatic is notably improved. He feels tired but has no other specific complaints. He denies nausea but says he has an eaten yet. 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 Notably he is on multiple p.r.n. orders for pain medicines and other sedating medicines. He does take metformin for diabetes. His Plavix has been held after his surgery. He is now started on DVT prophylaxis medication PHYSICAL EXAMINATION: Vital Signs: stable without fever Examination: General: alert, interacts with me normally Neurologic: At 1st the patient presented to me as very oriented answering questions appropriately following commands for examination. However during the examination he suddenly started calling for his who he said was downstairs and became clear that he thought he was at home. I was able after a minute to reorient him to the hospital. He could tell me his name not the date and he could tell me why he was in the hospital. Otherwise normal speech/language, normal business agent, no focal weakness Skin: warm, dry, good color, no rash HEENT: normal Neck: no mass or jvd Resps: relaxed Lungs: clear breath sounds Heart: regular, no murmur Abdomen: soft, nondistended, nontender, +BS, no mass Upper Extremities: normal Lower Extremities: no edema, warm No Bleeding or bruising IV site: looks normal LABORATORY DATA: sugars have been in good range ASSESSMENT: # status post lumbar spine surgery for sciatica overall uncomplicated # Acute encephalopathy, multifactorial, however he is receiving significant schedule and p.r.n. narcotics and has p.r.n. orders for other multiple sedating medicines # Type 2 diabetes currently with good sugar control on his metformin # Coronary disease status post stenting, currently stable without any symptoms of angina or heart failure # COPD, currently using a small amount of oxygen but asymptomatic and with clear lungs # Peripheral vascular disease, currently without symptoms PLANS: - his sedating medicines and other medicines would aggravate cephalopathy should be minimized as possible. He is currently getting MS Contin 30 mg twice daily and he is not use to getting long-acting narcotics at home. I have decreased this dose to 15 twice daily and we may need to further decrease narcotics depending on the balance between pain and confusion. I have discontinued orders for Benadryl and Valium and will not use those at this time unless he has actual need for them. Those have not been given so far. Will try and help with his sleep-wake cycle, nutrition, mobility, and it will be helpful with his further family members were able to visit. - Continue his usual diabetes medicines and outside of the Plavix usual cardiac medicines - will follow his sugars here
[2016-05-05] MEDS: METHOCARBAMOL 750 MG TAB PO PRN (18:19)
[2016-05-05] MEDS: MELATONIN 3 MG TAB PO SCH (19:51)
[2016-05-06] MEDS: METHOCARBAMOL 750 MG TAB PO PRN ×4 (01:42→16:25)
[2016-05-06] MEDS: NS 1,000 ML IV SCH (06:31)
[2016-05-06] MEDS: HYDROCODONE/APAP 10/325 TAB PO PRN (08:30)
[2016-05-06] MEDS: ENOXAPARIN 40 MG/0.4 ML SYR SC SCH (08:36)
[2016-05-06] MEDS: ATORVASTATIN CALCIUM 40 MG TAB PO SCH (08:37)
[2016-05-06] MEDS: FAMOTIDINE 20 MG TAB PO SCH ×2 (08:38→22:14)
[2016-05-06] MEDS: metFORMIN HCL 850 MG TAB PO SCH ×3 (08:38→20:40)
[2016-05-06] MEDS: morphINE SR 15 MG TAB PO SCH (09:54)
[2016-05-06] MEDS: NEBIVOLOL 2.5 MG PO SCH (09:56)
[2016-05-06] MEDS: ENALAPRIL MALEATE 10 MG TAB PO SCH (10:00)
[2016-05-06] MEDS: HYDROCHLOROTHIAZIDE 25 MG TAB PO SCH (10:00)
[2016-05-06] MEDS: amLODIPine BESYLATE 5 MG TAB PO SCH (10:01)
[2016-05-06] MEDS: SENNOSIDES/DOCUSATE SODIUM TAB PO SCH ×2 (10:05→20:40)
[2016-05-06] MEDS: POLYETHYLENE GLYCOL 3350 17 GM PKT PO SCH ×3 (10:05→22:14)
[2016-05-06] MEDS: Mometasone/Formoterol [Dulera 200 Mcg/5 Mcg Inhaler] 2 PUFFS IH SCH ×2 (10:08→21:16)
[2016-05-06] MEDS: TIOTROPIUM INHALER 18 MCG/DOSE 5 DOSE/MDI IH SCH (10:15)
--- NOTE | 2016-05-06 10:35 | NEUSURGPN ---
Date of Surgery: 05/04/16 Post Op Day: 2 Assessment/Plan: POD #2 s/p L2-S1 TLIF left hip pain resolved, confused overnight Will limit narcotics and benzos will add lidoderm patches and ice for pain control Continue NARAYAN drain Plan: Hold Valium PT/OT as tolerated LSO when out of bed COntinue NARAYAN drain Lovenox LUmbar xrays when he can tolerate Subjective: out of bed in chair, complains of severe LBP, no leg pain, weakness or tingling Mild confusion He pulled his NARAYAN drain bulb off last night. Objective: Neuro: DELATORRE, sens +LT dressing: CDI follows commands oriented x [address]: No Catheter Insertion Date: 05/04/16 - NARAYAN Drain Subfascial Wound Drainage (ml): 110 Neurosurgery Physical Exam - Vitals, I&O, Labs I and O 05/05/16 05/06/16 05/07/16 05:59 05:59 05:59 Intake Total 7571 2700 1200 Output Total 2950 710 Balance 4621 1989 1200 Weight 86.183 kg Intake: Oral (ml) 200 700 IV Intake (ml) 4750 1000 IV Infused (ml) 1921 1000 1200 ceFAZolin 1 GM/DEXTROSE 50 50 ml @ 200 mls/hr IV Q8H KAT Rx#:[id number] NS W/ 20 KCl/L 1,000 ml @ 1871 100 mls/hr IV CONT KAT Rx#:[id number] Ns 1,000 ml @ 150 mls/hr 1000 1200 IV CONT KAT Rx#: [id number] Autologous Blood (ml) 700 Output: Urine (ml) 960 600 Catheter 960 Urinal 600 Estimated Blood Loss (ml) 1400 Emesis (ml) 100 Wound Drainage (ml) 490 110 Left Back Alcon Monae 490 110 Other: Number of Voids Urinal 1 Bladder Scan Volume (ml) Urinal 244 Vital Signs Temp Pulse Resp BP Pulse Ox 36.8 C 86 18 102/68 97 05/06/16 08:00 05/06/16 08:00 05/06/16 08:00 05/06/16 10:01 05/06/16 08:00 Laboratory Results 05/05/16 05:07 05/05/16 05:07 ICD10 Worksheet Patient Problems: Problems Problem Status Diagnosed Chronic Disease Mgmt/Transitional Care Acute Chronic obstructive pulmonary disease with acute exacerbation Acute Fusion of spine of lumbar region Acute Hypoxia Acute
--- NOTE | 2016-05-06 11:05 | HOSPPROG ---
Hospitalist Progress Note Assessment/Plan: Mr. Lino is a 75-year-old male has had ongoing sciatica issues and underwent a L2-S1 TLIF surgery without complication. Today is my 1st encounter with the patient. Chart reviewed. #. Acute encephalopathy * this is in the setting of recent surgery as well as getting pain medications * patient pulled out his NARAYAN drain last night * will avoid narcotics [address] month scheduled Tylenol * this occurred when he had surgery for cervical surgery #. status post L2-S1 TLIF * POD # 2 #. severe back pain * patient has severe confusion w pain meds * trial of tylenol scheduled tid * trial of oral diluadid/ norco and oxy contributing to confusion/ will see if he does better w diluadid * Lidoderm patch #. diabetes type 2 * glucoses are stable #. anemia /postop * will follow #. leukocytosis/patient has underlying CLL #. DVT prophlaxis: per neurosurgery team #.PLAN; will tx to step down or ICU/ have seen the patient 3 x today/ has become extremely agitated and confused/ swinging at the nursing staff/think it is likely a response to anesthesia.. Spoke with neurosurgery to let them know my concerns of patient hurting his back/ hurting his incision. He will be safer in the ICU or step down/ may need a precedex gtt/ discussed w Dr Avalos. It took 4 nursing staff to help control him. Will dc MS Contin/ likely to make things worse with his confusion. Subjective: Bill is c/o severe back pain. Objective: Vital Signs Temp Pulse Resp BP Pulse Ox 36.8 C 86 18 102/68 97 05/06/16 08:00 05/06/16 08:00 05/06/16 08:00 05/06/16 10:01 05/06/16 08:00 Laboratory Results 05/05/16 05:07 05/05/16 05:07 05/05/16 05/06/16 05/07/16 05:59 05:59 05:59 Intake Total 7571 2700 1200 Output Total 2950 710 110 Balance 4621 1989 1090 - Physical Exam Constitutional: appears nourished, uncomfortable, No not in pain Eyes: PERRL Ears, Nose, Mouth, Throat: hearing normal Cardiovascular: regular rate and rhythym Respiratory: no respiratory distress Gastrointestinal: normoactive bowel sounds Skin: warm, normal color Musculoskeletal: muscular tenderness, generalized weakness Neurologic: other (alert, confused/) Psychiatric: encephalopathic, agitated, poor judgement, poor memory ICD10 Worksheet Patient Problems: Problems Problem Status Diagnosed Chronic Disease Mgmt/Transitional Care Acute Chronic obstructive pulmonary disease with acute exacerbation Acute Fusion of spine of lumbar region Acute Hypoxia Acute
[2016-05-06] MEDS: LIDOCAINE 5% 1 EA PATCH TD SCH (11:25)
[2016-05-06] MEDS: HYDROmorphONE/DILAUDID 2 MG TAB PO PRN (11:27)
[2016-05-06] MEDS: NICOTINE 14 MG/24 HR PATCH TD SCH (13:58)
[2016-05-06] MEDS: ACETAMINOPHEN 500 MG TAB PO SCH ×4 (14:44→22:14)
[2016-05-06] MEDS: HYDROmorphONE/DILAUDID 1 MG/ML SYR IVP PRN ×4 (15:02→19:59)
[2016-05-06] MEDS: DEXMEDETOMIDINE HCL 400 MCG in NS 100 ML IV SCH (20:20)
[2016-05-06] MEDS: PATCH REMOVAL 1 EA PATCH TD SCH (20:21)
[2016-05-06] MEDS ORDERED: PROPOFOL/EMULSION 100 ML IV SCH (20:30)
[2016-05-06] MEDS: MELATONIN 3 MG TAB PO SCH (20:40)
[2016-05-07] MEDS: DEXMEDETOMIDINE HCL 400 MCG in NS 100 ML IV SCH ×5 (04:08→21:25)
[2016-05-07] MEDS: TIOTROPIUM INHALER 18 MCG/DOSE 5 DOSE/MDI IH SCH (05:09)
[2016-05-07] MEDS: Mometasone/Formoterol [Dulera 200 Mcg/5 Mcg Inhaler] 2 PUFFS IH SCH ×2 (05:09→20:48)
[2016-05-07 05:35] LABS: % IMMATURE GRANULYOCYTES 0.5 % (0.0-1.1); ABSOLUTE IMMATURE GRANULOCYTES 0.07 10^3/uL (0.00-0.10); ADD DIFF? NO; ADD MORPH? YES; ADD SCAN? NO; ATYPICAL LYMPHOCYTE FLAG 0 (0-99); FRAGMENT RBC FLAG 0 (0-99); HEMATOCRIT 22.3 % (40.0-51.0); LEFT SHIFT FLG 10 (0-99); LIPEMIA HEMOLYSIS FLAG 80 (0-99); MEAN CELL HEMOGLOBIN 29.1 pg (27.9-34.1); MEAN CELL HEMOGLOBIN CONCENTR. 30.9 g/dL (32.4-36.7); MEAN CELL VOLUME 94.1 fL (81.5-99.8); MEAN PLATELET VOLUME 12.1 fL (8.7-11.7); PLATELET CLUMPS FLAG 20 (0-99); PLATELET COUNT 117 10^3/uL (150-400); RED BLOOD CELL COUNT 2.37 10^6/uL (4.40-6.38); RED CELL DISTRIBUTION WIDTH 13.8 % (11.5-15.2)
[2016-05-07 05:37] LABS: HEMOGLOBIN 6.9 g/dL (13.7-17.5)
[2016-05-07 05:52] LABS: ALANINE AMINOTRANSFERASE 41 IU/L (21-72); ALBUMIN 2.4 g/dL (3.5-5.0); ALKALINE PHOSPHATASE 50 IU/L (38-126); ANION GAP 11 mEq/L (8-16); ASPARTATE AMINOTRANSFERASE 64 IU/L (17-59); BILIRUBIN,TOTAL 0.7 mg/dL (0.1-1.4); CALCIUM 8.3 mg/dL (8.5-10.4); CARBON DIOXIDE 22 mEq/l (22-31); CHLORIDE 109 mEq/L (97-110); CREATININE 0.9 mg/dL (0.7-1.3); GLOMERULAR FILTRATION RATE > 60; GLUCOSE 134 mg/dL (70-100); POTASSIUM 3.9 mEq/L (3.5-5.2); SODIUM 142 mEq/L (134-144); TOTAL PROTEIN 4.3 g/dL (6.3-8.2)
[2016-05-07 06:38] LABS: MACROCYTES 1+; MICROCYTES 1+; PLATELET ESTIMATE DECREASED (ADEQ); SCHISTOCYTES 1+
[2016-05-07] MEDS: NICOTINE 14 MG/24 HR PATCH TD SCH (08:32)
[2016-05-07] MEDS: ENOXAPARIN 40 MG/0.4 ML SYR SC SCH (08:32)
[2016-05-07] MEDS: POLYETHYLENE GLYCOL 3350 17 GM PKT PO SCH ×3 (08:40→22:18)
[2016-05-07] MEDS: SENNOSIDES/DOCUSATE SODIUM TAB PO SCH ×2 (08:40→21:38)
[2016-05-07] MEDS: amLODIPine BESYLATE 5 MG TAB PO SCH (08:41)
[2016-05-07] MEDS: ENALAPRIL MALEATE 10 MG TAB PO SCH (08:41)
[2016-05-07] MEDS: NEBIVOLOL 2.5 MG PO SCH (08:41)
[2016-05-07] MEDS: ATORVASTATIN CALCIUM 40 MG TAB PO SCH (08:41)
[2016-05-07] MEDS: metFORMIN HCL 850 MG TAB PO SCH ×2 (08:42→21:38)
[2016-05-07] MEDS: LIDOCAINE 5% 1 EA PATCH TD SCH (08:43)
[2016-05-07] MEDS: ACETAMINOPHEN 650 MG SUPP PR SCH ×2 (09:06→16:48)
[2016-05-07] MEDS: FAMOTIDINE 20 MG/NACL 50 ML IV SCH ×2 (09:06→21:25)
[2016-05-07] MEDS ORDERED: HYDROCODONE/APAP 5/325 TAB PO PRN (11:09)
[2016-05-07] MEDS ORDERED: ZIPRASIDONE MESYLATE 20 MG VIAL IM ONE (11:10)
[2016-05-07] MEDS ORDERED: LORazepam 2 MG/ML INJ IVP PRN (11:12)
--- NOTE | 2016-05-07 11:27 | NEUSURGPN ---
Date of Surgery: 05/04/16 Post Op Day: 3 Assessment/Plan: POD #3 s/p L2-S1 TLIF severe confusion and combativeness on floor requiring transfer to ICU yesterday. Dr. Das aware today, on Precedex, but still with episodes of combativeness Strong motor exam per RN and staff urinary retention. 600 ml on current bladder scan H/H dropped from 9 to [address] Fontanez and we will obtain stat MRI lumbar spine without contrast and transfuse blood due to acute post operative blood loss. Plan: Continue Precedex sedation Continue NARAYAN drain MRI stat now to eval for post op compressive fluid collection follow H/H informed Dr. Das and discussed with Dr. Montero Subjective: eyes closed, sedated with 1.4 of precedex. difficult to arouse due to sedation Very combative overnight and moving all extremities with good strength per RN and staff Urinary retention currently and incontinent overnight. Objective: PERRLA, EOMI, opens eyes to sternal rub stimulation and states "yeah" when asked if he's Ok. Moves feet to command, squeezes right hand to command Per RN was moving all extremities briskly and with good strength overnight. Urinary Catheter in Place: No Catheter Insertion Date: 05/04/16 - NARAYAN Drain Subfascial Wound Drainage (ml): 110 Neurosurgery Physical Exam - Vitals, I&O, Labs I and O 05/06/16 05/07/16 05/08/16 05:59 05:59 05:59 Intake Total 2700 3017 Output Total 710 420 Balance 1989 2597 Intake: Oral (ml) 700 250 IV Intake (ml) 1000 1454 IV Infused (ml) 1000 1313 Ns 1,000 ml @ 150 mls/hr 1000 1200 IV CONT KAT Rx#: [id number] Dexmedetomidine HCl 400 113 mcg In Ns 100 ml @ Titrate IV CONT KAT Rx#: [id number] Output: Urine (ml) 600 200 Urinal 600 200 Wound Drainage (ml) 110 Subfascial 110 Wound Drainage (ml) 110 110 Left Back Alcon Monae 110 110 Other: Intake Quantity No Sufficient Number of Voids Urinal 1 1 Incontinence 1 Bladder Scan Volume (ml) Urinal 244 Vital Signs Temp Pulse Resp BP Pulse Ox 36.3 C 63 17 111/67 100 05/07/16 07:00 05/07/16 10:00 05/07/16 10:00 05/07/16 10:00 05/07/16 10:00 Laboratory Results 05/07/16 05:26 05/07/16 05:26 ICD10 Worksheet Patient Problems: Problems Problem Status Diagnosed Chronic Disease Mgmt/Transitional Care Acute Chronic obstructive pulmonary disease with acute exacerbation Acute Fusion of spine of lumbar region Acute Hypoxia Acute
[2016-05-07] MEDS: NS W/ 20 KCl/L 1,000 ML IV SCH (12:42)
[2016-05-07] MEDS ORDERED: HYDROCODONE/APAP 5/325 TAB PO SCH (14:00)
--- NOTE | 2016-05-07 15:27 | HOSPPROG ---
Hospitalist Progress Note Assessment/Plan: * Metabolic encephalopathy - extreme agitation -IV Precedex gtt * Anemia - suspect intra-operative blood loss -transfuse 1 unit PRBC * Lumbar spine surgery -recheck MRI - rule out bleeding * Urinary retention - straight cath and monitor -check MRI lumbar spine rule out cord compression * CLL with chronic leukocytosis * DM II -metformin * CAD/stent -holding Plavix * PVD s/p iliac graft * COPD/ ongoing tobacco -inhalers -nicotine patch Subjective: Still very agitation, swinging at and staff Objective: Vital Signs Temp Pulse Resp BP Pulse Ox 36.6 C 58 L 18 128/87 H 97 05/07/16 12:00 05/07/16 14:00 05/07/16 14:00 05/07/16 14:00 05/07/16 14:00 Laboratory Results 05/07/16 05:26 05/07/16 05:26 05/06/16 05/07/16 05/08/16 05:59 05:59 05:59 Intake Total 2700 3017 Output Total 710 420 710 Balance 1989 2597 -710 case d/w [facility] neurosurgery PA - extreme activity yesterday with agitation - now with urinary retention and blood loss - check MRI r/o bleed MRI L-spine - no blood - Physical Exam Constitutional: no apparent distress, appears nourished, not in pain Cardiovascular: regular rate and rhythym, no murmur, rub, or gallop Respiratory: no respiratory distress, no rales or rhonchi, clear to auscultation Gastrointestinal: normoactive bowel sounds, soft, non-tender abdomen, no palpable masses Skin: no rashes or abrasions, no fluctuance, no induration Musculoskeletal: full muscle strength Neurologic: No AAOx3 Psychiatric: encephalopathic, anxious, agitated, poor insight, poor judgement, poor memory ICD10 Worksheet Patient Problems: Problems Problem Status Diagnosed Chronic Disease Mgmt/Transitional Care Acute Chronic obstructive pulmonary disease with acute exacerbation Acute Fusion of spine of lumbar region Acute Hypoxia Acute
--- NOTE | 2016-05-07 15:31 | MR ---
MRI of the Lumbar Spine (Without Contrast) Clinical Indications: Status post instrumentation and fusion, now with urinary retention. Technique: Sagittal and axial T1 and T2 MRI sequences of the lumbar spine without contrast. Findings: Features of lumbar spine instrumentation and fusion are present from L2-S1 with bilateral p edicle screws at all five levels with posterior david fixation. Specific level findings are as follows: L1-L2: No disk herniation or stenosis. L2-L3: Diffuse annular bulging ventrally contributes to moderate acquired central canal narrowing. Fo ramina appear grossly patent. L3-L4: Annular bulging ventrally is present with a superimposed moderate size right paracentral disk protrusion. There is moderate acquired central canal stenosis. L4-L5: Diffuse annular bulging ventrally with ligamentum flavum and facet degenerative hypertrophy, w ith secondary moderate to advanced acquired central canal stenosis. The cauda equina is somewhat [place] within the thecal space. L5-S1: Disk desiccation and diffuse annular bulging with subligamentous central disk protrusion, mode rate in size. There is mild acquired central canal stenosis. Foramina remain patent. No significant fluid collection identified within the surgical bed. Incidental note of multiple bilateral renal cysts. Impression: Status post instrumentation and fusion of the lumbar spine from L2-S1. There is moderate to advanced acquired central canal narrowing at L4-L5. Less severe central canal narrowing at L2-L3 a nd L3-L4. Moderate right paracentral disk protrusion at L3-L4. Examination reviewed viaTelephone with Efren Lewis PA-C.
[2016-05-07] MEDS ORDERED: ZIPRASIDONE MESYLATE 20 MG VIAL IM PRN (17:25)
[2016-05-07 17:35] LABS: HEMATOCRIT 25.4 % (40.0-51.0)
[2016-05-07] MEDS ORDERED: SENNOSIDES/DOCUSATE SODIUM TAB PO SCH (21:00)
[2016-05-07] MEDS: MELATONIN 3 MG TAB PO SCH (21:37)
--- NOTE | 2016-05-07 22:12 | GCON ---
[f rep st] CONSULTATION CRITICAL CARE REASON FOR CONSULTATION: Delirium. HISTORY: The patient is a 75-year-old who underwent back surgery on May 04. He was in the int ensive care unit overnight and then transferred to [address] [place] [address]. He was brought back down to the intensiv e care unit last night secondary to acute delirium and combativeness. He was placed on a Precedex dr monik. He has been relatively calm overnight, but at times gets significantly confused and becomes comb ative. He did strike 1 of the nurses today. He is currently sedated from the affects of relatively high dose Precedex. The patient apparently did have confusion and combativeness with previous surgery; however, I cannot find specific mention of this. He does have a history of COPD, moderately severe, from previous smok ing. PAST MEDICAL HISTORY: Remarkable for type 2 diabetes, systemic hypertension, COPD, and hyperlipidemi a. There is a history of CLL, reportedly low-grade, coronary artery disease with previous stenting, an abdominal aortic aneurysm, and peripheral vascular disease. MEDICATIONS: On admission are as listed. SOCIAL HISTORY: The patient is , has 2 children. 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 He has smoked cigarettes. Significant alcohol is repo rtedly negative. FAMILY HISTORY: Noncontributory. REVIEW OF SYSTEMS: Unobtainable currently. PHYSICAL EXAMINATION: GENERAL: Reveals a gentleman who is fairly heavily sedated, but breathing wit hout problems. VITAL SIGNS: Blood pressure is approximately 120/75, heart rate 68, with sinus rhyth m on the monitor. A nasal cannula is in place at 3 L, saturations are 100%. He is afebrile. He silva s have restraints in place. HEENT: Remarkable for somewhat dry mucous membranes. NECK: There is n o lymphadenopathy or thyromegaly, no jugular venous distention. CHEST: Clear bilaterally. Excursio ns are good, slightly diminished at the bases. No wheezes, rales, or rhonchi are appreciated. HEART : Regular in rate and rhythm. There is a systolic murmur, no gallop. P2 appears to be normal. ABD OMEN: Soft, nontender. Bowel sounds are present. His surgical site is dressed. Lidoderm patches a re in place. SKIN: Without rash or lesions. There is no significant edema, no cords. NEUROLOGIC: Nonfocal. He moves all extremities, but currently he is somewhat obtunded. He is being transported to MRI. LABORATORY DATA: White blood cell count is 13,000, hematocrit 22.3. Platelets are 117,000. Basic m etabolic panel is within normal limits. Glucose is mildly elevated between 130-160. AST is 64, ALT 41. Albumin is 2.4. ASSESSMENT: 1. Acute delirium. 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 He is confused and combative. He places the nursing staff and others at some r isk. He is in restraints secondary to this. The delirium appears to be secondary to medications, al though it is unclear which medications are affecting him. He is on opiates and has been on benzodiaz epines. He is currently being sedated with Precedex which appears to be effective. Propofol was pre scribed briefly yesterday, but I am not sure if it was actually used. Reportedly, he was given Haldo l and Flexeril yesterday which calmed him some, but I am unable to find this on his MAY. 2. Status post back surgery for sciatica and spinal stenosis. He had a TLIF from L2-S1. MRI shows postoperative changes with some narrowing of the canal throughout this region, no evidence of abscess or hematoma. 3. History of chronic obstructive pulmonary disease. He is stable, with clear lungs, and low oxygen requirements. There is no evidence of an exacerbation. 4. History of hypertension. He is on appropriate medications. 5. Type 2 diabetes mellitus. Glucoses are acceptably controlled on oral agents. 6. DVT prophylaxis: On enoxaparin. 7. GI prophylaxis: On Pepcid. PLAN/RECOMMENDATIONS: 1. Precedex will be continued. With slow weaning of the Precedex, other medications can be consider ed, including Haldol intravenously if needed. He has been started on Geodon as well. Benzodiazepine s are ordered and can be used, however. I am somewhat concerned that he may have a paradoxical react ion to these. Further evaluation is indicated. Bronchopulmonary therapies and oxygen will be contin ued. Antihypertensive therapies will be continued. 2. Further plans and recommendations will be made based on his progress over the next 12-24 hours. /[id number]/MODL
[2016-05-07] MEDS: ACETAMINOPHEN 500 MG TAB PO SCH (22:18)
[2016-05-07] MEDS: PATCH REMOVAL 1 EA PATCH TD SCH (22:18)
[2016-05-08] MEDS: METHOCARBAMOL 750 MG TAB PO PRN ×3 (03:11→13:29)
[2016-05-08] MEDS: POLYETHYLENE GLYCOL 3350 17 GM PKT PO SCH ×3 (05:21→20:45)
[2016-05-08] MEDS: ACETAMINOPHEN 500 MG TAB PO SCH ×3 (05:21→20:44)
[2016-05-08 05:52] LABS: % IMMATURE GRANULYOCYTES 0.6 % (0.0-1.1); ABSOLUTE IMMATURE GRANULOCYTES 0.07 10^3/uL (0.00-0.10); ADD DIFF? NO; ADD MORPH? NO; ADD SCAN? NO; ATYPICAL LYMPHOCYTE FLAG 0 (0-99); FRAGMENT RBC FLAG 0 (0-99); HEMATOCRIT 24.3 % (40.0-51.0); HEMOGLOBIN 7.9 g/dL (13.7-17.5); LEFT SHIFT FLG 0 (0-99); LIPEMIA HEMOLYSIS FLAG 80 (0-99); MEAN CELL HEMOGLOBIN 29.2 pg (27.9-34.1); MEAN CELL HEMOGLOBIN CONCENTR. 32.5 g/dL (32.4-36.7); MEAN CELL VOLUME 89.7 fL (81.5-99.8); MEAN PLATELET VOLUME 11.9 fL (8.7-11.7); PLATELET CLUMPS FLAG 0 (0-99); PLATELET COUNT 162 10^3/uL (150-400); RED BLOOD CELL COUNT 2.71 10^6/uL (4.40-6.38); RED CELL DISTRIBUTION WIDTH 13.9 % (11.5-15.2)
[2016-05-08 06:15] LABS: ANION GAP 7 mEq/L (8-16); CALCIUM 8.4 mg/dL (8.5-10.4); CARBON DIOXIDE 23 mEq/l (22-31); CHLORIDE 110 mEq/L (97-110); CREATININE 0.9 mg/dL (0.7-1.3); GLOMERULAR FILTRATION RATE > 60; GLUCOSE 117 mg/dL (70-100); MAGNESIUM 1.6 mg/dL (1.6-2.3); POTASSIUM 4.2 mEq/L (3.5-5.2); SODIUM 140 mEq/L (134-144)
[2016-05-08] MEDS: DEXMEDETOMIDINE HCL 400 MCG in NS 100 ML IV SCH (06:20)
[2016-05-08] MEDS: NS W/ 20 KCl/L 1,000 ML IV SCH (06:21)
[2016-05-08] MEDS: SENNOSIDES/DOCUSATE SODIUM TAB PO SCH ×2 (08:49→20:43)
[2016-05-08] MEDS: FAMOTIDINE 20 MG/NACL 50 ML IV SCH ×2 (08:49→20:43)
[2016-05-08] MEDS: NICOTINE 14 MG/24 HR PATCH TD SCH (08:49)
[2016-05-08] MEDS: ATORVASTATIN CALCIUM 40 MG TAB PO SCH (08:49)
[2016-05-08] MEDS: ENOXAPARIN 40 MG/0.4 ML SYR SC SCH (08:50)
[2016-05-08] MEDS: amLODIPine BESYLATE 5 MG TAB PO SCH (08:50)
[2016-05-08] MEDS: ENALAPRIL MALEATE 10 MG TAB PO SCH (08:50)
[2016-05-08] MEDS: metFORMIN HCL 850 MG TAB PO SCH ×2 (08:50→20:43)
[2016-05-08] MEDS: LIDOCAINE 5% 1 EA PATCH TD SCH (08:50)
[2016-05-08] MEDS: Mometasone/Formoterol [Dulera 200 Mcg/5 Mcg Inhaler] 2 PUFFS IH SCH ×2 (08:52→21:47)
[2016-05-08] MEDS: NEBIVOLOL 2.5 MG PO SCH (08:52)
[2016-05-08] MEDS: TIOTROPIUM INHALER 18 MCG/DOSE 5 DOSE/MDI IH SCH (08:53)
--- NOTE | 2016-05-08 09:51 | PDINTPN ---
[facility] Progress Note Assessment/Plan: Assessment/Plan: * S/P back surgery * Pain-okay when not moving -cont narcotics * Delerium-with combativeness. Improved with precedex * DM * HTN * COPD * CAD-with h/o stent * Anemia Subjective: Resting comfortably. Pain okay at present. Less confused. Objective: Vital Signs Temp Pulse Resp BP Pulse Ox 36.6 C 69 20 123/72 H 100 05/08/16 07:00 05/08/16 07:00 05/08/16 07:00 05/08/16 07:00 05/08/16 07:00 Laboratory Results 05/08/16 05:25 05/08/16 05:25 05/07/16 05/08/16 05/09/16 05:59 05:59 05:59 Intake Total 3017 3120 Output Total 420 1850 Balance 2597 1270 Physical Exam - Physical Exam General Appearance: alert, no apparent distress EENT: PERRL/EOMI, normal ENT inspection Neck: non-tender, full range of motion, supple, normal inspection Respiratory: chest non-tender, decreased breath sounds, prolonged expiration, No respiratory distress, No stridor, No wheezing Cardiac/Chest: normal peripheral pulses, regular rate, rhythm, systolic murmur Peripheral Pulses: 2+: carotid (R), carotid (L), femoral (R), femoral (L), dorsalis-pedis (R), dorsalis-pedis (L) Abdomen: normal bowel sounds, non-tender, soft Male Genitalia: deferred Rectal: deferred Skin: normal color, warm/dry ICD10 Worksheet Patient Problems: Problems Problem Status Diagnosed Chronic Disease [facility]/Transitional Care Acute Chronic obstructive pulmonary disease with acute exacerbation Acute Fusion of spine of lumbar region Acute Hypoxia Acute
[2016-05-08] MEDS: DIAZEPAM 5 MG TAB PO PRN ×3 (10:09→19:19)
[2016-05-08] MEDS ORDERED: OLANZapine DISINTEGR 5 MG TAB PO PRN (11:13)
[2016-05-08] MEDS: HYDROmorphONE/DILAUDID 1 MG/ML SYR IVP PRN ×2 (11:15→20:01)
--- NOTE | 2016-05-08 11:35 | NEUSURGPN ---
Assessment/Plan: POD #4 s/p L2-S1 TLIF severe confusion and combativeness on floor requiring transfer to ICU- much improved today. Still on .6 of Precedex and no epsiodes of combativeness Neuro stable urinary retention resolving- able to void in urinal H/H 7.724 this am MRI lumbar spine shows no acute compressive fluid collections or other acute changes. Plan: Continue Precedex sedation as needed- try and wean Increase [place] from 5-10mg for better pain control and to avoid IV Continue OREN drain Obtain postop x-rays when able of lumbar spine. follow H/H PT/OT Dispo- If does well today and able to wean off Precedex, may be able to get to floor tomorrow. Will most likely need IP rehab Continue need for ICU today due to need for Precedex. Discussed with Dr. Das Subjective: Patient states he is struggling with spasms and moving from bed to chair but is able to sit in chair this morning finally. Per RN, notes patient with no combativeness overnight and resolving urinary retention. Objective: NAD, VSS, AFebrile PERRL, EOMI Somnolent- but arousable to stimulation, following commands and conversing appropriately BUE/BLE 5/5= Incision c/d/i- dressed Oren X 1- output 40 in last 12 of serosang Catheter Insertion Date: 05/04/16 - Physician Discussed Patient with : Jossie Neurosurgery Physical Exam - Vitals, I&O, Labs I and O 05/07/16 05/08/16 05/09/16 05:59 05:59 05:59 Intake Total 3017 3120 Output Total 420 1850 Balance 2597 1270 Intake: Oral (ml) 250 600 IV Intake (ml) 1454 IV Infused (ml) 1313 2520 Ns 1,000 ml @ 150 mls/hr 1200 IV CONT KAT Rx#: [id number] Dexmedetomidine HCl 400 113 400 mcg In Ns 100 ml @ Titrate IV CONT KAT Rx#: [id number] NS W/ 20 KCl/L 1,000 ml @ 2120 75 mls/hr IV CONT KAT Rx #:[id number] Output: Urine (ml) 200 1700 Catheter 600 Urinal 200 800 Incontinence 300 Wound Drainage (ml) 110 110 Subfascial 110 110 Wound Drainage (ml) 110 40 Left Back Alcon Monae 110 40 Other: Intake Quantity No Sufficient Number of Voids Urinal 1 Incontinence 1 Bladder Scan Volume (ml) Catheter 600 Vital Signs Temp Pulse Resp BP Pulse Ox 36.6 C 69 20 123/72 H 100 05/08/16 07:00 05/08/16 07:00 05/08/16 07:00 05/08/16 07:00 05/08/16 07:00 Laboratory Results 05/08/16 05:25 05/08/16 05:25 ICD10 Worksheet Patient Problems: Problems Problem Status Diagnosed Chronic Disease [facility]/Transitional Care Acute Chronic obstructive pulmonary disease with acute exacerbation Acute Fusion of spine of lumbar region Acute Hypoxia Acute
[2016-05-08] MEDS: HYDROmorphONE/DILAUDID 2 MG TAB PO PRN ×2 (11:58→16:06)
[2016-05-08] MEDS: ONDANSETRON 4 MG/2 ML VIAL IVP PRN (12:31)
--- NOTE | 2016-05-08 14:02 | HOSPPROG ---
Hospitalist Progress Note Assessment/Plan: * Metabolic encephalopathy - extreme agitation -IV Precedex gtt * Anemia - suspect intra-operative blood loss -s/p transfuse 1 unit PRBC * Lumbar spine surgery -f/u MRI spine unchanged * Urinary retention - resolved * CLL with chronic leukocytosis * DM II -metformin * CAD/stent -holding Plavix * PVD s/p iliac graft * COPD/ ongoing tobacco -inhalers -nicotine patch Subjective: Still on precedex drip, but improved. Not dangerous today. Screaming out in pain. Objective: Vital Signs Temp Pulse Resp BP Pulse Ox 36.4 C 68 18 105/61 97 05/08/16 12:00 05/08/16 12:00 05/08/16 12:00 05/08/16 12:00 05/08/16 12:00 Laboratory Results 05/08/16 05:25 05/08/16 05:25 05/07/16 05/08/16 05/09/16 05:59 05:59 05:59 Intake Total 3017 3120 Output Total 420 1850 Balance 2597 1270 Requiring IV dilaudid for pain - Physical Exam Constitutional: no apparent distress, appears nourished, not in pain Cardiovascular: regular rate and rhythym, no murmur, rub, or gallop Respiratory: no respiratory distress, no rales or rhonchi, clear to auscultation Gastrointestinal: normoactive bowel sounds, soft, non-tender abdomen, no palpable masses Skin: no rashes or abrasions, no fluctuance, no induration Psychiatric: interacting appropriately (better), encephalopathic, anxious, agitated (but much less) ICD10 Worksheet Patient Problems: Problems Problem Status Diagnosed Chronic Disease Mgmt/Transitional Care Acute Chronic obstructive pulmonary disease with acute exacerbation Acute Fusion of spine of lumbar region Acute Hypoxia Acute
[2016-05-08] MEDS: HYDROCODONE/APAP 5/325 TAB PO PRN (20:42)
[2016-05-08] MEDS: MELATONIN 3 MG TAB PO SCH (20:43)
[2016-05-08] MEDS: PATCH REMOVAL 1 EA PATCH TD SCH (21:39)
[2016-05-09] MEDS: DEXMEDETOMIDINE HCL 400 MCG in NS 100 ML IV SCH (01:02)
[2016-05-09 06:31] LABS: % IMMATURE GRANULYOCYTES 0.6 % (0.0-1.1); ABSOLUTE IMMATURE GRANULOCYTES 0.06 10^3/uL (0.00-0.10); ADD DIFF? NO; ADD MORPH? NO; ADD SCAN? NO; ATYPICAL LYMPHOCYTE FLAG 0 (0-99); FRAGMENT RBC FLAG 20 (0-99); HEMOGLOBIN 7.4 g/dL (13.7-17.5); LEFT SHIFT FLG 0 (0-99); LIPEMIA HEMOLYSIS FLAG 80 (0-99); MEAN CELL HEMOGLOBIN 28.5 pg (27.9-34.1); MEAN CELL HEMOGLOBIN CONCENTR. 32.2 g/dL (32.4-36.7); MEAN CELL VOLUME 88.5 fL (81.5-99.8); MEAN PLATELET VOLUME 11.5 fL (8.7-11.7); PLATELET CLUMPS FLAG 10 (0-99); PLATELET COUNT 215 10^3/uL (150-400); RED CELL DISTRIBUTION WIDTH 13.9 % (11.5-15.2)
[2016-05-09] MEDS: ACETAMINOPHEN 500 MG TAB PO SCH (07:28)
[2016-05-09] MEDS: HYDROmorphONE/DILAUDID 2 MG TAB PO PRN ×5 (09:51→22:51)
[2016-05-09] MEDS: METHOCARBAMOL 750 MG TAB PO PRN ×2 (09:53→14:01)
[2016-05-09] MEDS: ATORVASTATIN CALCIUM 40 MG TAB PO SCH (09:53)
[2016-05-09] MEDS: metFORMIN HCL 850 MG TAB PO SCH ×2 (09:54→22:42)
[2016-05-09] MEDS: ENALAPRIL MALEATE 10 MG TAB PO SCH (09:54)
[2016-05-09] MEDS: amLODIPine BESYLATE 5 MG TAB PO SCH (09:55)
[2016-05-09] MEDS: ENOXAPARIN 40 MG/0.4 ML SYR SC SCH (09:56)
[2016-05-09] MEDS: LIDOCAINE 5% 1 EA PATCH TD SCH (09:56)
[2016-05-09] MEDS: NICOTINE 14 MG/24 HR PATCH TD SCH (09:56)
[2016-05-09] MEDS: Mometasone/Formoterol [Dulera 200 Mcg/5 Mcg Inhaler] 2 PUFFS IH SCH ×2 (09:57→21:45)
[2016-05-09] MEDS: NEBIVOLOL 2.5 MG PO SCH (09:58)
[2016-05-09] MEDS: POLYETHYLENE GLYCOL 3350 17 GM PKT PO SCH ×3 (09:59→22:43)
[2016-05-09] MEDS: SENNOSIDES/DOCUSATE SODIUM TAB PO SCH ×2 (09:59→22:43)
[2016-05-09] MEDS: TIOTROPIUM INHALER 18 MCG/DOSE 5 DOSE/MDI IH SCH (09:59)
[2016-05-09] MEDS: DIAZEPAM 5 MG TAB PO PRN ×3 (10:21→22:50)
[2016-05-09] MEDS ORDERED: D50W 25 GM/50 ML SYR IVP PRN (10:48)
[2016-05-09] MEDS ORDERED: oxyCODONE IR 5 MG TAB PO PRN (10:52)
[2016-05-09] MEDS ORDERED: KETOROLAC 30 MG/1 ML SDV IVP PRN (10:52)
[2016-05-09] MEDS: INSULIN REGULAR HUMAN 100 UNIT/ML SC SCH ×3 (12:14→22:52)
[2016-05-09] MEDS ORDERED: GABAPENTIN 300 MG CAP PO ONE (14:47)
[2016-05-09] MEDS: ACETAMINOPHEN 325 MG TAB PO PRN (15:10)
--- NOTE | 2016-05-09 15:18 | HOSPPROG ---
Hospitalist Progress Note Assessment/Plan: * Metabolic encephalopathy - extreme agitation -s/p IV Precedex gtt - now weaned off * Anemia - suspect intra-operative blood loss -s/p transfuse 1 unit PRBC * Lumbar spine surgery -f/u MRI spine unchanged -difficult pain control with severe spasms * Urinary retention - resolved * CLL with chronic leukocytosis * DM II -metformin * CAD/stent -holding Plavix * PVD s/p iliac graft * COPD/ ongoing tobacco -inhalers -nicotine patch Subjective: Mental status improved. Still severe pain with waves of spasms. Objective: Vital Signs Temp Pulse Resp BP Pulse Ox 36.9 C 88 23 H 139/62 H 97 05/09/16 12:00 05/09/16 14:00 05/09/16 14:00 05/09/16 14:00 05/09/16 14:00 Laboratory Results 05/09/16 05:00 05/08/16 05:25 05/08/16 05/09/16 05/10/16 05:59 05:59 05:59 Intake Total 3120 3525 970 Output Total 1850 1365 500 Balance 1270 2160 470 - Physical Exam Constitutional: no apparent distress, appears nourished, not in pain Cardiovascular: regular rate and rhythym, no murmur, rub, or gallop Respiratory: no respiratory distress, no rales or rhonchi, clear to auscultation Gastrointestinal: normoactive bowel sounds, soft, non-tender abdomen, no palpable masses Skin: no rashes or abrasions, no fluctuance, no induration Neurologic: AAOx3, sensation intact bilaterally Psychiatric: interacting appropriately, not anxious, not encephalopathic, thought process linear ICD10 Worksheet Patient Problems: Problems Problem Status Onset Fusion of spine of lumbar region Acute Chronic Disease Mgmt/Transitional Care Acute Chronic obstructive pulmonary disease with acute exacerbation Acute Hypoxia Acute
[2016-05-09] MEDS: HYDROmorphONE/DILAUDID 1 MG/ML SYR IVP PRN (16:17)
--- NOTE | 2016-05-09 18:35 | NEUSURGPN ---
Date of Surgery: 05/04/16 Post Op Day: 6 Assessment/Plan: Assessment/Plan POD 5 doing better, more alert today, still with back pain. Plan: Ok to transfer to floor. Discussed with Dr. Das Continue NARAYAN POD #3 s/p L2-S1 TLIF severe confusion and combativeness on floor requiring transfer to ICU yesterday. Dr. Das aware today, on Precedex, but still with episodes of combativeness Strong motor exam per RN and staff urinary retention. 600 ml on current bladder scan H/H dropped from 9 to [address] Fontanez and we will obtain stat MRI lumbar spine without contrast and transfuse blood due to acute post operative blood loss. Plan: Continue Precedex sedation Continue NARAYAN drain MRI stat now to eval for post op compressive fluid collection follow H/H informed Dr. Das and discussed with Dr. Montero Subjective: awake, alert, doing well today but still with back pain. Denies numbness or tingling Objective: DELATORRE, sens +LT follows commands, oriented x4 Catheter Insertion Date: 05/04/16 - NARAYAN Drain Subfascial Wound Drainage (ml): 140 - Physician Discussed Patient with DrBelen: Jossie Neurosurgery Physical Exam - Vitals, I&O, Labs I and O 05/08/16 05/09/16 05/10/16 05:59 05:59 05:59 Intake Total 3120 3525 970 Output Total 1850 1365 500 Balance 1270 2160 470 Intake: Oral (ml) 600 1600 500 IV Intake (ml) 100 IV Infused (ml) 2520 1925 370 Dexmedetomidine HCl 400 400 360 370 mcg In Ns 100 ml @ Titrate IV CONT KAT Rx#: [id number] NS W/ 20 KCl/L 1,000 ml @ 2120 1565 75 mls/hr IV CONT KAT Rx #:[id number] Output: Urine (ml) 1700 1225 500 Catheter 600 Incontinence 300 Urinal 800 1225 500 Wound Drainage (ml) 110 Subfascial 110 Wound Drainage (ml) 40 140 Left Back Alcon Monae 40 140 Other: Number of Voids Urinal 2 Bladder Scan Volume (ml) Catheter 600 Vital Signs Temp Pulse Resp BP Pulse Ox 36.9 C 77 18 143/72 H 92 05/09/16 15:47 05/09/16 15:47 05/09/16 15:47 05/09/16 15:47 05/09/16 15:47 Laboratory Results 05/09/16 05:00 05/08/16 05:25 ICD10 Worksheet Patient Problems: Problems Problem Status Onset Fusion of spine of lumbar region Acute Chronic Disease Mgmt/Transitional Care Acute Chronic obstructive pulmonary disease with acute exacerbation Acute Hypoxia Acute
[2016-05-09] MEDS: MELATONIN 3 MG TAB PO SCH (22:42)
[2016-05-09] MEDS: PATCH REMOVAL 1 EA PATCH TD SCH (22:43)
[2016-05-10 05:26] LABS: % IMMATURE GRANULYOCYTES 0.7 % (0.0-1.1); ABSOLUTE IMMATURE GRANULOCYTES 0.07 10^3/uL (0.00-0.10); ADD DIFF? NO; ADD MORPH? NO; ADD SCAN? NO; ATYPICAL LYMPHOCYTE FLAG 0 (0-99); FRAGMENT RBC FLAG 0 (0-99); HEMATOCRIT 24.9 % (40.0-51.0); LEFT SHIFT FLG 0 (0-99); LIPEMIA HEMOLYSIS FLAG 80 (0-99); MEAN CELL HEMOGLOBIN 29.1 pg (27.9-34.1); MEAN CELL HEMOGLOBIN CONCENTR. 32.1 g/dL (32.4-36.7); MEAN CELL VOLUME 90.5 fL (81.5-99.8); MEAN PLATELET VOLUME 10.5 fL (8.7-11.7); PLATELET CLUMPS FLAG 0 (0-99); PLATELET COUNT 252 10^3/uL (150-400); RED BLOOD CELL COUNT 2.75 10^6/uL (4.40-6.38); RED CELL DISTRIBUTION WIDTH 13.7 % (11.5-15.2)
[2016-05-10 05:40] LABS: ANION GAP 5 mEq/L (8-16); CALCIUM 8.9 mg/dL (8.5-10.4); CARBON DIOXIDE 27 mEq/l (22-31); CHLORIDE 104 mEq/L (97-110); CREATININE 0.9 mg/dL (0.7-1.3); GLOMERULAR FILTRATION RATE > 60; GLUCOSE 110 mg/dL (70-100); POTASSIUM 3.8 mEq/L (3.5-5.2); SODIUM 136 mEq/L (134-144)
[2016-05-10] MEDS: ATORVASTATIN CALCIUM 40 MG TAB PO SCH (07:36)
[2016-05-10] MEDS: amLODIPine BESYLATE 5 MG TAB PO SCH (07:36)
[2016-05-10] MEDS: ENALAPRIL MALEATE 10 MG TAB PO SCH (07:36)
[2016-05-10] MEDS: metFORMIN HCL 850 MG TAB PO SCH ×2 (07:37→21:07)
[2016-05-10] MEDS: SENNOSIDES/DOCUSATE SODIUM TAB PO SCH ×2 (07:38→21:08)
[2016-05-10] MEDS: METHOCARBAMOL 750 MG TAB PO PRN ×2 (07:38→14:10)
[2016-05-10] MEDS: GABAPENTIN 300 MG CAP PO SCH ×2 (07:40→21:08)
[2016-05-10] MEDS: POLYETHYLENE GLYCOL 3350 17 GM PKT PO SCH ×3 (07:40→21:08)
[2016-05-10] MEDS: ENOXAPARIN 40 MG/0.4 ML SYR SC SCH (07:40)
[2016-05-10] MEDS: LIDOCAINE 5% 1 EA PATCH TD SCH (07:40)
[2016-05-10] MEDS: NICOTINE 14 MG/24 HR PATCH TD SCH (07:59)
[2016-05-10] MEDS: HYDROCODONE/APAP 5/325 TAB PO PRN ×3 (08:04→18:15)
[2016-05-10] MEDS: INSULIN REGULAR HUMAN 100 UNIT/ML SC SCH ×4 (08:18→21:21)
[2016-05-10] MEDS: NEBIVOLOL 2.5 MG PO SCH (08:20)
--- NOTE | 2016-05-10 09:07 | GPROG ---
[f rep st] PROGRESS NOTE NEUROSURGICAL PROGRESS NOTE DATE OF SERVICE: 05/10/2016 SUBJECTIVE: The patient is lying in bed complaining of back pain. He denies any new numbness, ting ling, or weakness. OBJECTIVE: VITAL SIGNS: Blood pressure is 143/77, heart rate 77, his temperature is 36.6. NEUROLO GIC: Patient is awake, alert, and oriented x3. He follows commands. His pupils are equal, round, and reactive to light. He has equal and symmetric strength of the bilateral lower extremities with normal sensation throughout all dermatomes of the bilateral lower extremities. Incision: The dressing is clean, dry, and intact. There is no NARAYAN drain. There is no [place] cathete r. LAB RESULTS: White blood cell count 10.6, hemoglobin 8.0, hematocrit 24.9, platelets are 252. Sodiu m is 136, potassium is 3.8, carbon dioxide 104, BUN 14 creatinine 0.9. IMPRESSION: This is a 75-year-old male who is postop day #6 from an L2-S1 transforaminal lumbar int erbody fusion with Dr. Sethi. He remains neurologically stable with ongoing low back pain. PLAN: All of the above issues were discussed with the patient in detail today. The patient will co ntinue to advance his activity as tolerated with physical therapy and occupational therapy. He will require continued pain management. Once he is able to tolerate them, the patient will undergo AP a nd lateral x-rays of the lumbar spine. /[id number]/MODL
[2016-05-10] MEDS: HYDROmorphONE/DILAUDID 2 MG TAB PO PRN ×2 (09:18→16:00)
[2016-05-10] MEDS: DIAZEPAM 5 MG TAB PO PRN ×2 (09:19→16:01)
[2016-05-10] MEDS: Mometasone/Formoterol [Dulera 200 Mcg/5 Mcg Inhaler] 2 PUFFS IH SCH ×2 (09:52→21:13)
[2016-05-10] MEDS: TIOTROPIUM INHALER 18 MCG/DOSE 5 DOSE/MDI IH SCH (09:53)
[2016-05-10] MEDS: MAGNESIUM HYDROXIDE 30 ML UDCUP PO PRN (15:58)
--- NOTE | 2016-05-10 17:44 | HOSPPROG ---
Hospitalist Progress Note Assessment/Plan: * Metabolic encephalopathy - extreme agitation -s/p IV Precedex gtt - now weaned off * Anemia - suspect intra-operative blood loss -s/p transfuse 1 unit PRBC * Lumbar spine surgery -f/u MRI spine unchanged -difficult pain control with severe spasms * Urinary retention - resolved * CLL with chronic leukocytosis * DM II -metformin * CAD/stent -restart Plavix * PVD s/p iliac graft * COPD/ ongoing tobacco -inhalers -nicotine patch * Superficial thrombus arm Subjective: better still lots of pain and spasms Objective: Vital Signs Temp Pulse Resp BP Pulse Ox 36.6 C 74 18 143/77 H 88 L 05/10/16 07:28 05/10/16 09:54 05/10/16 09:54 05/10/16 07:28 05/10/16 14:21 Laboratory Results 05/10/16 04:17 05/10/16 04:17 05/09/16 05/10/16 05/11/16 05:59 05:59 05:59 Intake Total 3525 1170 Output Total 1365 1150 640 Balance 2160 20 -640 - Physical Exam Constitutional: no apparent distress, appears nourished, not in pain Cardiovascular: regular rate and rhythym, no murmur, rub, or gallop Respiratory: no respiratory distress, no rales or rhonchi, clear to auscultation Gastrointestinal: normoactive bowel sounds, soft, non-tender abdomen, no palpable masses Skin: no rashes or abrasions, no fluctuance, no induration Neurologic: AAOx3, sensation intact bilaterally Psychiatric: interacting appropriately, not anxious, not encephalopathic, thought process linear ICD10 Worksheet Patient Problems: Problems Problem Status Onset Fusion of spine of lumbar region Acute Chronic Disease Mgmt/Transitional Care Acute Chronic obstructive pulmonary disease with acute exacerbation Acute Hypoxia Acute
[2016-05-10] MEDS: MELATONIN 3 MG TAB PO SCH (21:08)
[2016-05-10] MEDS: PATCH REMOVAL 1 EA PATCH TD SCH (21:09)
[2016-05-11] MEDS: ONDANSETRON 4 MG/2 ML VIAL IVP PRN ×2 (00:18→04:14)
[2016-05-11] MEDS: METHOCARBAMOL 750 MG TAB PO PRN ×2 (06:21→10:15)
[2016-05-11] MEDS: POLYETHYLENE GLYCOL 3350 17 GM PKT PO SCH ×3 (07:23→19:53)
[2016-05-11] MEDS: ENOXAPARIN 40 MG/0.4 ML SYR SC SCH (07:24)
[2016-05-11] MEDS: LIDOCAINE 5% 1 EA PATCH TD SCH (07:27)
[2016-05-11] MEDS: SENNOSIDES/DOCUSATE SODIUM TAB PO SCH ×2 (07:28→19:53)
[2016-05-11] MEDS: metFORMIN HCL 850 MG TAB PO SCH ×2 (07:29→19:52)
[2016-05-11] MEDS: HYDROCODONE/APAP 5/325 TAB PO PRN ×2 (07:29→23:49)
[2016-05-11] MEDS: CLOPIDOGREL BISULFATE 75 MG TAB PO SCH (07:29)
[2016-05-11] MEDS: GABAPENTIN 300 MG CAP PO SCH ×2 (07:30→19:51)
[2016-05-11] MEDS: amLODIPine BESYLATE 5 MG TAB PO SCH (07:30)
[2016-05-11] MEDS: ENALAPRIL MALEATE 10 MG TAB PO SCH (07:32)
[2016-05-11] MEDS: ATORVASTATIN CALCIUM 40 MG TAB PO SCH (07:32)
[2016-05-11] MEDS: NICOTINE 14 MG/24 HR PATCH TD SCH (07:33)
[2016-05-11] MEDS: DIAZEPAM 5 MG TAB PO PRN (07:36)
[2016-05-11] MEDS: INSULIN REGULAR HUMAN 100 UNIT/ML SC SCH ×4 (07:50→20:17)
[2016-05-11] MEDS: NEBIVOLOL 2.5 MG PO SCH (07:51)
--- NOTE | 2016-05-11 07:52 | NEUSURGPN ---
Assessment/Plan: 75 yo M POD #7 s/p L2-S1 TLIF -Out of ICU and off precedex -HH slightly better today, has been given 1 PRBC HH 11/16.9 today -Strong motor exam per RN and staff -Post op MRI shows moderate stenosis L4/5 -TEDs, SCDs, lovenox -X rays show stable hardware -PT/OT -Follow exam -DC nicotine patch per Dr Das -Updated Dr Das Subjective: Pt resting in bed, c/o back pain/spasm Objective: Awake and alert Appears uncomfortable MAEx4 Follows all commands Motor 5/5 BLE Incision dressed cdi +LT Urinary Catheter in Place: No Catheter Insertion Date: 05/04/16 - Physician Discussed Patient with : Jossie Neurosurgery Physical Exam - Vitals, I&O, Labs I and O 05/10/16 05/11/16 05/12/16 05:59 05:59 05:59 Intake Total 1170 250 Output Total 1150 1190 Balance 20 -940 Intake: Oral (ml) 700 250 IV Intake (ml) 100 IV Infused (ml) 370 Dexmedetomidine HCl 400 370 mcg In Ns 100 ml @ Titrate IV CONT KAT Rx#: [id number] Output: Urine (ml) 1150 750 Urinal 1150 750 Emesis (ml) 300 Wound Drainage (ml) 140 Subfascial 140 Other: Intake Quantity Yes Sufficient Number of Voids Urinal 1 1 Number of Emesis 1 Occurrences Vital Signs Temp Pulse Resp BP Pulse Ox 37.1 C 101 H 18 142/84 H 92 05/11/16 04:00 05/11/16 04:00 05/11/16 04:00 05/11/16 07:32 05/11/16 04:00 Laboratory Results 05/10/16 04:17 05/10/16 04:17 ICD10 Worksheet Patient Problems: Problems Problem Status Onset Fusion of spine of lumbar region Acute Chronic Disease Mgmt/Transitional Care Acute Chronic obstructive pulmonary disease with acute exacerbation Acute Hypoxia Acute
[2016-05-11] MEDS: Mometasone/Formoterol [Dulera 200 Mcg/5 Mcg Inhaler] 2 PUFFS IH SCH ×2 (08:30→20:51)
[2016-05-11] MEDS: TIOTROPIUM INHALER 18 MCG/DOSE 5 DOSE/MDI IH SCH (08:31)
[2016-05-11] MEDS: MAGNESIUM HYDROXIDE 30 ML UDCUP PO PRN (10:14)
[2016-05-11] MEDS: HYDROmorphONE/DILAUDID 2 MG TAB PO PRN (10:15)
--- NOTE | 2016-05-11 12:03 | HOSPPROG ---
Hospitalist Progress Note Assessment/Plan: 75y male with scheduled back surgery. This is my 1st encounter with the patient , chart reviewed. * Metabolic encephalopathy - extreme agitation -s/p IV Precedex gtt - now weaned off - resolved * Anemia - suspect intra-operative blood loss -s/p transfuse 1 unit PRBC - stable * Lumbar spine surgery -f/u MRI spine unchanged -difficult pain control with severe spasms -difficult pain situation caution use due to previous encephalopathy * Urinary retention - resolved * CLL with chronic leukocytosis * constipation - aggressive bowel therapy - could be contributing to increased pain - reviewed with the nurse * DM II -metformin * CAD/stent -restart Plavix * PVD s/p iliac graft * COPD/ ongoing tobacco -inhalers -nicotine patch * Superficial thrombus arm * disposition - unclear, will require rehabilitation Subjective: Complains of significant back pain. Feels spastic. No other specific complaints. Objective: Vital Signs Temp Pulse Resp BP Pulse Ox 36.7 C 86 18 142/85 H 98 05/11/16 08:00 05/11/16 08:04 05/11/16 08:04 05/11/16 08:00 05/11/16 08:04 Laboratory Results 05/10/16 04:17 05/10/16 04:17 05/10/16 05/11/16 05/12/16 05:59 05:59 05:59 Intake Total 1170 250 200 Output Total 1150 1190 Balance 20 -940 200 - Physical Exam Constitutional: appears nourished, uncomfortable, No obese Eyes: PERRL, anicteric sclera, EOMI Ears, Nose, Mouth, Throat: moist mucous membranes, hearing normal, ears appear normal Cardiovascular: No JVD, No tachycardia, No edema Respiratory: no respiratory distress, no rales or rhonchi, reduced air movement Gastrointestinal: distension, No tenderness, No ascites Skin: warm, normal color, No erythema Musculoskeletal: pain with ROM, muscular tenderness, generalized weakness Neurologic: AAOx3 Psychiatric: not anxious, thought process linear, poor insight ICD10 Worksheet Patient Problems: Problems Problem Status Onset Chronic obstructive pulmonary disease with acute exacerbation Acute Hypoxia Acute Chronic Disease Mgmt/Transitional Care Acute Fusion of spine of lumbar region Acute
[2016-05-11] MEDS: MELATONIN 3 MG TAB PO SCH (19:52)
[2016-05-11] MEDS: PATCH REMOVAL 1 EA PATCH TD SCH (19:54)
[2016-05-12] MEDS: METHOCARBAMOL 750 MG TAB PO PRN ×3 (01:52→17:50)
[2016-05-12] MEDS: HYDROCODONE/APAP 5/325 TAB PO PRN (01:52)
[2016-05-12] MEDS: HYDROmorphONE/DILAUDID 2 MG TAB PO PRN ×4 (04:48→17:50)
[2016-05-12] MEDS: ATORVASTATIN CALCIUM 40 MG TAB PO SCH ×2 (08:09→14:06)
[2016-05-12] MEDS: amLODIPine BESYLATE 5 MG TAB PO SCH (08:09)
[2016-05-12] MEDS: ENALAPRIL MALEATE 10 MG TAB PO SCH (08:10)
[2016-05-12] MEDS: ACETAMINOPHEN 325 MG TAB PO PRN (08:10)
[2016-05-12] MEDS: ENOXAPARIN 40 MG/0.4 ML SYR SC SCH (08:11)
[2016-05-12] MEDS: LIDOCAINE 5% 1 EA PATCH TD SCH (08:11)
[2016-05-12] MEDS: GABAPENTIN 300 MG CAP PO SCH ×2 (08:11→21:42)
[2016-05-12] MEDS: metFORMIN HCL 850 MG TAB PO SCH ×2 (08:11→21:41)
[2016-05-12] MEDS: INSULIN REGULAR HUMAN 100 UNIT/ML SC SCH ×4 (08:12→21:36)
[2016-05-12] MEDS: SENNOSIDES/DOCUSATE SODIUM TAB PO SCH ×2 (08:13→21:42)
[2016-05-12] MEDS ORDERED: METHOCARBAMOL 750 MG TAB PO SCH (09:00)
[2016-05-12] MEDS: Mometasone/Formoterol [Dulera 200 Mcg/5 Mcg Inhaler] 2 PUFFS IH SCH ×2 (09:22→19:52)
[2016-05-12] MEDS: TIOTROPIUM INHALER 18 MCG/DOSE 5 DOSE/MDI IH SCH (09:23)
--- NOTE | 2016-05-12 11:19 | SOAPPROG ---
Downtime Inpatient MD Late Entry SOAP Note: Due to computer downtime, I am recreating the following medical record entry as of this date and time based on the information specified below: Information on which this medical record entry is based: (MD: Please list items, such as nursing notes, labs, imaging, etcetera) Due to unresolved computer issues, I can only write a note in this template. The patient was seen this AM at 0715. S: awake, alert, complaining of severe LBP and spasms, did OK overnight O: Neuro: DELATORRE, sens +LT follows command. Incision: Dressing CDI, No NARAYAN, no vasquez catheter Vitals: VSS A/P: 75 yo male POD #8 sp L2-S1 TLIF metabolic encephalopathy - resolved acute postoperative anemia due to intraoperative blood loss Ongoing LBP/spasms - will schedule Robaxin and continue narcotics cautiously given encephalolpathy limited mobility - rehab planning in place
--- NOTE | 2016-05-12 13:28 | HOSPPROG ---
Hospitalist Progress Note Assessment/Plan: 75y male with scheduled back surgery. * Metabolic encephalopathy - -s/p IV Precedex gtt - now weaned off - resolved * Anemia - suspect intra-operative blood loss -s/p transfuse 1 unit PRBC - stable * Lumbar spine surgery -f/u MRI spine unchanged -difficult pain control with severe spasms -difficult pain situation caution use due to previous encephalopathy * Urinary retention - resolved * CLL with chronic leukocytosis * constipation - aggressive bowel therapy - resolved * DM II -metformin * CAD/stent -restart Plavix * PVD s/p iliac graft * COPD/ ongoing tobacco -inhalers -nicotine patch * Superficial thrombus arm * disposition - inpatient rehab -continue PT OT eval -discharge inpatient rehab when able Subjective: Feeling better today. Still having significant pain. Eager to work with therapy. Objective: Vital Signs Temp Pulse Resp BP Pulse Ox 36.9 C 78 16 125/81 H 94 05/12/16 11:31 05/12/16 11:31 05/12/16 11:31 05/12/16 04:00 05/12/16 11:50 Laboratory Results 05/10/16 04:17 05/10/16 04:17 05/11/16 05/12/16 05/13/16 05:59 05:59 05:59 Intake Total 250 450 250 Output Total 1190 100 200 Balance -940 350 50 - Physical Exam Constitutional: appears nourished, uncomfortable Eyes: PERRL, anicteric sclera Ears, Nose, Mouth, Throat: moist mucous membranes, hearing normal Cardiovascular: No JVD, No edema Respiratory: no respiratory distress, reduced air movement Gastrointestinal: No tenderness, No ascites Skin: warm, normal color Musculoskeletal: muscular tenderness, generalized weakness Neurologic: AAOx3 Psychiatric: not anxious, not encephalopathic, thought process linear ICD10 Worksheet Patient Problems: Problems Problem Status Onset Chronic obstructive pulmonary disease with acute exacerbation Acute Hypoxia Acute Chronic Disease Mgmt/Transitional Care Acute Fusion of spine of lumbar region Acute
[2016-05-12] MEDS: ACETAMINOPHEN 500 MG TAB PO PRN ×2 (14:04→23:39)
[2016-05-12] MEDS: METHOCARBAMOL 750 MG TAB PO SCH ×2 (14:04→23:39)
[2016-05-12] MEDS: POLYETHYLENE GLYCOL 3350 17 GM PKT PO SCH ×3 (14:05→21:42)
[2016-05-12] MEDS: NEBIVOLOL 2.5 MG PO SCH (14:06)
[2016-05-12 20:15] VITALS: RESP 16
[2016-05-12] MEDS: MELATONIN 3 MG TAB PO SCH (21:42)
[2016-05-12] MEDS: PATCH REMOVAL 1 EA PATCH TD SCH (21:47)
[2016-05-13] MEDS: HYDROmorphONE/DILAUDID 2 MG TAB PO PRN ×3 (06:01→12:00)
[2016-05-13] MEDS: LIDOCAINE 5% 1 EA PATCH TD SCH ×2 (07:55→14:22)
[2016-05-13] MEDS: POLYETHYLENE GLYCOL 3350 17 GM PKT PO SCH ×2 (07:55→08:20)
[2016-05-13] MEDS: SENNOSIDES/DOCUSATE SODIUM TAB PO SCH (07:56)
[2016-05-13] MEDS: ENOXAPARIN 40 MG/0.4 ML SYR SC SCH (07:56)
[2016-05-13] MEDS: ACETAMINOPHEN 500 MG TAB PO PRN (07:57)
[2016-05-13] MEDS: GABAPENTIN 300 MG CAP PO SCH (07:57)
[2016-05-13] MEDS: METHOCARBAMOL 750 MG TAB PO SCH (07:57)
[2016-05-13] MEDS: metFORMIN HCL 850 MG TAB PO SCH (07:57)
[2016-05-13] MEDS: amLODIPine BESYLATE 5 MG TAB PO SCH (07:58)
[2016-05-13] MEDS: ENALAPRIL MALEATE 10 MG TAB PO SCH (08:00)
[2016-05-13] MEDS: CLOPIDOGREL BISULFATE 75 MG TAB PO SCH (08:00)
[2016-05-13] MEDS: INSULIN REGULAR HUMAN 100 UNIT/ML SC SCH ×2 (08:01→12:08)
[2016-05-13] MEDS: ATORVASTATIN CALCIUM 40 MG TAB PO SCH (08:01)
[2016-05-13] MEDS: NEBIVOLOL 2.5 MG PO SCH (08:02)
[2016-05-13] MEDS: Mometasone/Formoterol [Dulera 200 Mcg/5 Mcg Inhaler] 2 PUFFS IH SCH (08:02)
[2016-05-13] MEDS: TIOTROPIUM INHALER 18 MCG/DOSE 5 DOSE/MDI IH SCH (08:04)
--- NOTE | 2016-05-13 10:47 | HOSPPROG ---
Hospitalist Progress Note Assessment/Plan: 75y male with scheduled back surgery. * Metabolic encephalopathy - - resolved * Anemia - suspect intra-operative blood loss -s/p transfuse 1 unit PRBC - stable * Lumbar spine surgery -f/u MRI spine unchanged -difficult pain control with severe spasms -difficult pain situation caution use due to previous encephalopathy * Urinary retention - resolved * CLL with chronic leukocytosis * constipation - resolved * DM II -metformin * CAD/stent -restart Plavix * PVD s/p iliac graft * COPD/ ongoing tobacco -inhalers -nicotine patch * Superficial thrombus arm * disposition - inpatient rehab -continue PT OT eval -discharge inpatient rehab when able Subjective: Up in the chair. Less pain today then yesterday. Eager to go to rehab. Objective: Vital Signs Temp Pulse Resp BP Pulse Ox 36.8 C 67 16 163/83 H 90 L 05/13/16 07:24 05/13/16 07:24 05/13/16 07:24 05/13/16 07:24 05/13/16 07:24 Laboratory Results 05/10/16 04:17 05/10/16 04:17 05/12/16 05/13/16 05/14/16 05:59 05:59 05:59 Intake Total 450 250 350 Output Total 100 425 250 Balance 350 -175 100 - Physical Exam Constitutional: appears nourished, chronically ill appearing Eyes: PERRL, anicteric sclera Ears, Nose, Mouth, Throat: moist mucous membranes, hearing normal Cardiovascular: No JVD, No edema Respiratory: no respiratory distress, reduced air movement Gastrointestinal: No tenderness, No ascites Skin: warm, normal color Musculoskeletal: muscular tenderness, generalized weakness Psychiatric: not anxious, not encephalopathic ICD10 Worksheet Patient Problems: Problems Problem Status Onset Chronic obstructive pulmonary disease with acute exacerbation Acute Hypoxia Acute Chronic Disease Mgmt/Transitional Care Acute Fusion of spine of lumbar region Acute
--- NOTE | 2016-05-13 11:37 | SOAPPROG ---
Downtime Inpatient MD Late Entry SOAP Note: Due to unresolved computer issues, I can only write notes using this template. This patient was seen this morning at 7:00am S: awake, alert, complaining of spasms still. O: Neuro: NAD, VSS BLE 5/5 DELATORRE sens +LT follows command. Incision: Dressing CDI, A/P: 75 yo male POD #9 sp L2-S1 TLIF metabolic encephalopathy - resolved acute postoperative anemia due to intraoperative blood loss- resolved Ongoing LBP/spasms - Robaxin scheduled limited mobility Dispo- placement found today at [facility]
--- NOTE | 2016-05-13 11:55 | PDIAF ---
- Diagnosis Diagnosis: Lumbar stenosis post L2-S1 lumbar fusion Code Status: Full Code - Medication Management Discharge Medications: Medications to Continue on Transfer metFORMIN HCL [Glucophage 850 mg (*)] 850 mg PO BID 09/20/11 [Last Taken ] Atorvastatin Calcium [Lipitor 40 mg (*)] 40 mg PO DAILY #0 05/27/15 [Last Taken 05/04/16] Enalapril/Hydrochlorothiazide [Enalapril-Hctz 10-25 mg Tablet] 1 each PO DAILY 05/27/15 [Last Taken 05/27/15] Mometasone/Formoterol [Dulera 200 Mcg/5 Mcg Inhaler] 2 puffs IH BID 05/27/15 [ Last Taken 05/04/16] Nebivolol HCl [Bystolic] 2.5 mg PO DAILY 05/27/15 [Last Taken 05/04/16] Tiotropium Inhaler [Spiriva Handihaler] 18 mcg IH DAILY 05/27/15 [Last Taken 12/10] Albuterol [Proventil Inhaler HFA (*)] 1 - 2 puffs IH DAILY PRN 03/10/16 [Last Taken 05/04/16] amLODIPine BESYLATE [Norvasc 2.5 mg (*)] 2.5 mg PO DAILY 03/10/16 [Last Taken ] Diazepam [Valium 5 MG (*)] 2.5 - 5 mg PO QID PRN #0 tab 03/26/16 [Last Taken Unknown] Ondansetron Odt [Zofran Odt 4 mg (*)] 4 - 8 mg PO Q6HRS PRN #0 tab 03/26/16 [ Last Taken Unknown] Sennosides/Docusate Sodium [Senokot-S] 1 - 2 tab PO BID #0 tab 03/26/16 [Last Taken 04/27/16] Acetaminophen [Tylenol ES 500 mg (*)] 1,000 mg PO Q8 PRN #0 tab 05/13/16 [Last Taken Unknown] Albuterol [Proventil Neb] 3 ml IH Q2 PRN #0 deyvial 05/13/16 [Last Taken Unknown ] Clopidogrel Bisulfate [Plavix (*)] 75 mg PO DAILY #0 tab 05/13/16 [Last Taken Unknown] Enalapril Maleate [Vasotec 10 MG (*)] 10 mg PO DAILY #0 tab 05/13/16 [Last Taken Unknown] Enoxaparin [Lovenox 40 MG (*)] 40 mg SC DAILY #0 syr 05/13/16 [Last Taken Unknown] Gabapentin [Neurontin 300 MG (*)] 300 mg PO BID #0 cap 05/13/16 [Last Taken Unknown] HYDROmorphone HCL [Dilaudid 2 mg (*)] 2 - 4 mg PO Q4HRS PRN #0 tab 05/13/16 [ Last Taken Unknown] Hydrocodone/APAP 5/325 [[place] 5/325 (*)] 1 - 2 tab PO Q4 PRN #0 tab 05/13/16 [ Last Taken Unknown] Lidocaine 5% [Lidoderm 5% Patch (*)] 1 ea TD DAILY #0 patch 05/13/16 [Last Taken Unknown] Melatonin [Melatonin 3 MG (*)] 6 mg PO HS #0 tab 05/13/16 [Last Taken Unknown] Methocarbamol [Robaxin 750 mg (*)] 750 mg PO Q4 PRN #0 tab 05/13/16 [Last Taken Unknown] Methocarbamol [Robaxin 750 mg (*)] 750 mg PO Q8H #0 tab 05/13/16 [Last Taken Unknown] oxyCODONE IR [Oxycodone Ir (*)] 5 - 10 mg PO Q4 PRN #0 tab 05/13/16 [Last Taken Unknown] Training Specialist Antibiotics: n/a Discharge Medications: Refer to the Discharge Home Medication list for PRN reason. - Orders Services needed: Home Care, Registered Nurse, Physical Therapy, Occupational Therapy Home Care Face to Face: I certify that this patient was under my care and that I had the required [id number] encounter meeting the encounter requirements on the discharge day. My findings support the fact that the patient is homebound as defined in CMS Chapter 7 Medicare Benefits Manual 30.1.1, The condition of the patient is such that there exists a normal inability to leave home and consequently, leaving home would require a considerable and taxing effort. Diet Recommendation: no restrictions on diet Diet Texture: Regular Texture Diet [place]: Not applicable Torrey Stockings Discontinue Date: When walking 100 yards 3 times per day. Wound Care Instructions: Brace to be worn when out of bed. May shower, keep short 5-7 minutes, water may salas over incision, pat dry, no scrubbing incision , no not need to put anything on incision such as ointments, etc. Monitor incision daily for signs of infection ,drainage, erythema. No bending at the waist, lifting, twisting more than 5-10 pounds. Follow up with Dr. Das in 2 weeks Activity/Weight Bearing Restrictions: Brace to be worn when out of bed. May shower, keep short 5-7 minutes, water may salas over incision, pat dry, no scrubbing incision, no not need to put anything on incision such as ointments, etc. Monitor incision daily for signs of infection ,drainage, erythema. No bending at the waist, lifting, twisting more than 5-10 pounds. Follow up with Dr. Das in 2 weeks Equipment: Brace to be worn when out of bed. Not in shower - Follow Up Care Current Providers and Referrals: Dillon Joiner MD [Primary Care Provider] -
[2016-05-13] MEDS: METHOCARBAMOL 750 MG TAB PO PRN (12:00)
[2016-05-13 13:50] VITALS: BP 152/93; PULSE 70; TEMP 98.2; O2SAT 94
== END 2016-05-13 14:22 | DRG 456 ==
LOC: F3N 05:41 → F2N 15:27 → F3N 05-05 10:42 → F2N 05-06 20:01 → F3N 05-09 15:37
PROVIDERS: ADMIT Neurological Surgery; ATTEND Neurological Surgery
PROC: 00NY0ZZ Release Lumbar Spinal Cord, Open Approach (ICD-10-PCS; principal; 2016-05-04 07:15)
PROC: 4A1004G Monitoring of Central Nervous Electrical Activity, Intraoperative, Open Approach (ICD-10-PCS; principal; 2016-05-04 07:15)
PROC: 0SG10AJ Fusion of 2 or more Lumbar Vertebral Joints with Interbody Fusion Device, Posterior Approach, Anterior Column, Open Approach (ICD-10-PCS; principal; 2016-05-04 07:15)
PROC: 0SG30AJ Fusion of Lumbosacral Joint with Interbody Fusion Device, Posterior Approach, Anterior Column, Open Approach (ICD-10-PCS; principal; 2016-05-04 07:15)
PROC: 8E0WXBZ Computer Assisted Procedure of Trunk Region (ICD-10-PCS; principal; 2016-05-04 07:15)
PROC: 30233N1 Transfusion of Nonautologous Red Blood Cells into Peripheral Vein, Percutaneous Approach (ICD-10-PCS; 2016-05-07)
DX: M41.86 Other forms of scoliosis, lumbar region (principal); G93.49 Other encephalopathy; D62 Acute posthemorrhagic anemia; M51.36 Other intervertebral disc degeneration, lumbar region; M51.26 Other intervertebral disc displacement, lumbar region; E11.9 Type 2 diabetes mellitus without complications; J44.9 Chronic obstructive pulmonary disease, unspecified; I73.9 Peripheral vascular disease, unspecified; I10 Essential (primary) hypertension; Z80.0 Family history of malignant neoplasm of digestive organs; Z72.0 Tobacco use; Z79.84 Long term (current) use of oral hypoglycemic drugs; Z95.5 Presence of coronary angioplasty implant and graft; E78.5 Hyperlipidemia, unspecified
CPT/HCPCS: 92526-GN; 92610-GN; 97116-GP; 97162-GP; 97165-GO; 97530-GO; 97530-GP; 97535-GO; C1713; C1762; G8978-GP-CK; G8979-GP-CI; G8987-GO-CI; G8988-GO-CI; G8996-GN-CJ; G8997-GN-CI; G8998-GN-CI; J0690; J1100; J1170; J1650; J1815; J2274; J2405; J2550; J2704; J3010; J3486; J7060; P9016

== ENCOUNTER 2016-05-10 15:23 | Inpatient (IN) | payer OTHER, BC ==
[2016-05-13] MEDS ORDERED: POLYETHYLENE GLYCOL 3350 17 GM PKT PO PRN (14:16)
[2016-05-13] MEDS ORDERED: HYDROmorphONE/DILAUDID 2 MG TAB PO PRN (15:29)
[2016-05-13] MEDS ORDERED: ALBUTEROL 60 PUFFS/8 GM MDI IH PRN (15:29)
[2016-05-13] MEDS ORDERED: ALBUTEROL 3 ML DEYVIAL IH PRN (15:29)
--- NOTE | 2016-05-13 17:05 | GHP ---
[f rep st] HISTORY AND PHYSICAL POST ADMISSION PHYSICIAN EVALUATION AND REHABILITATION TREATMENT PLAN. DATE OF ADMISSION: 05/13/2016 DATE OF EVALUATION: 05/13/2016. TIME OF EVALUATION: 1520. REFERRING FACILITY: [facility]. IMPAIRMENT GROUP: [id number]. DATE OF ONSET: 05/04/2016. REFERRING PHYSICIAN: Souleymane Sethi MD CONSULTING PHYSICIANS: There was consultation with the hospitalist service and with Pulmonary and critical Care. REHABILITATION DIAGNOSIS: Debility, status post lumbar spinal surgery. ETIOLOGIC DIAGNOSIS: Other Orthopedic. DATE OF SURGERY: 05/05/2016. HISTORY OF PRESENT ILLNESS: The patient was admitted to [facility] on 05/04/2016 for a 2nd back surgery. He had cervical spinal surgery approximately 7 weeks previously, and on 05/05 he underwent an L2-S1 total lumbar interbody fusion. His pre-existing sciatic pain was notably improved. He continues to have pain in his back along the incision. There was encephalopathy in the hospital including combativeness. This improved with weaning of opiates and other sedating medications. Because of the encephalopathy and agitation, he was returned to the intensive care unit on 05/07/2016 where he was put on IV dexmedetomidine. The dexmedetomidine was weaned over approximately 1-2 days, and he did not have subsequent combativeness. He had anemia after his surgery and a transfusion of 1 unit. He had pain control issues with specifically muscle spasms in his back and in his thighs. He was placed on methocarbamol scheduled. There was a superficial thrombosis in his left upper extremity; he received no specific treatment for this. Ultrasound ruled out a deep venous thrombosis. STUDIES AND LABORATORY IN HOSPITAL: Spine imaging confirmed successful placement of hardware and no complications. Left upper extremity venous ultrasound revealed superficial thrombus. He had anemia with a molly hemoglobin and hematocrit of 6.9 and 22.3 on 05/07. He had a transfusion, and on 05/10/2016 his hemoglobin was 8 and his hematocrit was 24.9. He persistently had an elevated white blood cell count, which was thought to be consistent with a history of CLL. There were low platelets but these resolved. Serum chemistry revealed overall normal renal function and electrolytes. He had a low BUN, 5 on 05/10/2016. His had elevated glucoses. Liver function tests on 05/07/2016 revealed a slightly elevated AST of 64, total protein was low at 4.3, and albumin was low at 2.4. PRECAUTIONS: He is a fall risk and he has orthopedic spinal precautions. ACTIVE COMORBIDITIES: He has no active tier 1 or tier 2 comorbidities. He has the tier 3 comorbidity of diabetes mellitus with manifestation; the manifestation being peripheral vascular disease. PAST MEDICAL HISTORY: 1. Spinal stenosis of the cervical and lumbar spine. 2. Chronic obstructive pulmonary disease, and he reports he uses oxygen at home at night. 3. Coronary artery disease. 4. Hypertension. 5. Abdominal aortic aneurysm. 6. Peripheral vascular disease. 7. Dyslipidemia. 8. Chronic lymphocytic leukemia. 9. Suspicion of sleep apnea. 10. Peripheral vascular disease. PAST SURGICAL HISTORY: 1. Stenting for coronary artery disease. 2. Left iliac artery graft. 3. Knee surgeries. 4. Cervical laminectomy approximately 7 weeks ago. PRE-HOSPITAL MEDICATIONS: I do not have a complete list. He was taking metformin for diabetes, amlodipine, enalapril, hydrochlorothiazide and nebivolol for hypertension as well as coronary artery disease, tiotropium, albuterol, Mometasone/formoterol for his COPD. He reports that he was taking methocarbamol for muscle spasms prior to admission. ADMISSION MEDICATIONS: 1. Metformin 850 mg p.o. b.i.d. 2. Atorvastatin 40 mg p.o. daily. 3. Mometasone/formoterol 2 puffs b.i.d. 4. Nebivolol 2.5 mg p.o. daily. 5. Tiotropium inhaler 1 inhalation daily. 6. Albuterol inhaler 1-2 puffs on a p.r.n. basis. 7. Amlodipine 2.5 mg p.o. daily. 8. Diazepam 2.5 to 5 mg p.o. 4 times a day p.r.n. spasms. 9. Ondansetron 48 mg p.o. q.6 hours p.r.n. nausea/vomiting. 10. Senna/docusate 1-2 tabs p.o. b.i.d. 11. Acetaminophen 1000 mg p.o. q.8 hours. 12. Albuterol nebulizer 3 mL inhaled q.2 hours p.r.n. 13. Clopidogrel 75 mg p.o. daily. 14. Enalapril 10 mg p.o. daily. 15. Enoxaparin 40 mg subcutaneous daily. 16. Gabapentin 300 mg p.o. b.i.d. 17. Hydromorphone 2 to 4 mg p.o. q.4 hours p.r.n. 18. Hydrocodone/acetaminophen 5/325 one to two tablets p.o. q.4 hours p.r.n. 19. Lidocaine patch. 20. Melatonin 6 mg p.o. q.h.s. 21. Methocarbamol 750 mg p.o. q.8 hours scheduled and q.4 hours p.r.n. 22. Oxycodone 5 to 10 mg p.o. q.4 hours p.r.n. ALLERGIES: There is an allergy listed to contrast dye. FAMILY HISTORY: There is family history of colon cancer and congestive heart failure. PSYCHOSOCIAL HISTORY: He is . He lives with his . 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 He is a former cigarette smoker; does not smoke anymore. He has 2 adult children. REVIEW OF SYSTEMS: He has back pain. He recently has had muscle spasms in his legs and in his back. He reports that he has had weight loss, and chart review documents a 4 kg weight loss since 05/27/2015. He reports his appetite is good. He denies nausea, vomiting, constipation, or diarrhea. He denies fevers/ chills, cough, dyspnea, chest pain, and palpitations. He has some swelling of the left forearm and back of his hand; otherwise, he has no joint swelling or joint pain. He has no dysuria or urinary frequency. Other than that, a 10- point review of systems is negative. PHYSICAL EXAMINATION: VITAL SIGNS: Not yet recorded in the chart. Vitals earlier today at [facility]: Blood pressure was 152/93, heart rate was 70 , respiratory rate was 16, oxygen saturation was 94% on 3 L, temperature was 36.8 degrees centigrade. His weight is 86.7 kg for a body mass index of 23.9. GENERAL: This is a well-nourished, well-developed man who appears his chronologic age, cooperative, and in no acute distress while supine. He has pain when he arises from supine to seated. HEENT: Extraocular movements are intact. Pupils are equal, round, and reactive to light and accommodation. Mucous membranes are moist. Dentition is in good condition. Airway is not crowded. NECK: Supple. HEART: There is a regular rate and rhythm with no murmurs, rubs, or gallops. LUNGS: Clear to auscultation bilaterally. ABDOMEN : Soft, nontender, nondistended with normoactive bowel sounds and no hepatosplenomegaly. EXTREMITIES: There is no cyanosis or clubbing. There is trace to 1+ edema of the left upper extremity. Radial and dorsalis pedis pulses are 2+ bilaterally. NEUROLOGIC: He is alert and oriented x3. Cranial nerves 2-12 are grossly intact. There is no focal weakness. Sensation is intact to light touch. CURRENT LEVEL OF FUNCTION: Per the preadmission screen. Regarding diet, feeding, and swallowing, he was on a regular textured diet with thin liquids. Regarding grooming, he required minimal assistance. For bathing, he needed assistance. For dressing, he needed maximal assistance. For toileting, he needed assistance. For bed mobility, he required contact guard assist and voice cuing. For transfers, he required minimal assistance and voice cuing. His balance was poor. His endurance was poor. He was able to walk 125 feet using a front-wheeled walker with minimal assistance. Regarding cognition, he was noted to need some verbal cues. IMPRESSION: Mr. Cornell Lino s a 75-year-old man with long-standing cervical and lumbar spinal stenosis, who has had surgery for these conditions. The cervical spinal surgery was done in February 2016, and he had lumbar spinal surgery 0n 05/05/16. He had a significant period of encephalopathy, delirium, and agitation requiring sedation with IV dexmedetomidine in the ICU for 2 days. He was successfully weaned and has no longer had an agitated delirium, though he may have some residual issues with cognition. He has significant need for pain control, which has to be balanced against the adverse effects of sedation with his recent encephalopathy. He has hypoxia, which was not present in the daytime prior to his surgery. He has anemia. He is appropriate for inpatient rehabilitation where he will benefit from physical and occupational therapy to optimize his mobility and independence with activities of daily living. Given his pain conditions, delirium, and debility, he will begin on a modified schedule. His goal is to complete rehabilitation and then return home with his . For a safe discharge, it is expected that he will achieve modified independence with mobility and ADLs, he will have his pain controlled, there will be education for him and his family regarding his spinal precautions, medication management, and other specific needs for his care upon discharge. He will receive therapy with physical therapy and occupational therapy on a modified schedule, 60-90 minutes for each discipline per day on 5-7 days of the week. His expected duration of stay is 12-14 days. It is anticipated that, upon discharge, he will continue to benefit from home health services, including home occupational therapy, and home physical therapy. ASSESSMENT AND PLAN: 1. Debility following surgery for lumbar spinal stenosis. He underwent a L2 to S1 total lumbar interbody fusion 0n 05/05/16. He will have physical and occupational therapy to optimize his mobility and independence with activities of daily living. 2. Pain control. This was discussed in detail with him and his . They wish to minimize sedating medications. Will continue the scheduled methocarbamol, as well as the as-needed methocarbamol. He was taking this medication prior to his hospitalization. Will continue his hydromorphone; will increase the dose ranging from 2 to 4 mg q.4 hours to 1 to 4 mg and have it available q.3 hours to better be able to treat acute worsening of his pain, but also to be able to give him smaller doses, and will continue the acetaminophen 1000 mg q.8 hours. He will be assessed for adequacy of pain control. The possibility of using a long-acting opiate was discussed, and this will be considered should his pain management not be adequate. 3. Chronic obstructive pulmonary disease and hypoxia, likely exacerbated by anemia. He will have oxygen, incentive spirometry, and inhalers that he was using prior to his admission, and it is hoped that he will be liberated from oxygen before his discharge home. 4. Hypertension. Continue amlodipine, enalapril, and nebivolol, and consider restarting hydrochlorothiazide versus titrating his current antihypertensives, which are at low dose. 5. Diabetes mellitus, type 2. Continue metformin. He had insulin sliding scale ordered, but it was not being used as his blood sugars were not sufficiently elevated. 6. Coronary artery disease. Continue clopidogrel. 7. Dyslipidemia. Continue atorvastatin. 8. Delirium. Observe for any recurrence. Continue melatonin 6 mg p.o. q.h.s. and assess the quality of his sleep and his alertness during the day. 9. Prophylaxis. Continue enoxaparin subcutaneous for DVT prophylaxis as well as sequential compression devices and EMMA hose, and encourage mobility. 10. Code status. He is a full code. FOLLOWUP PLANS: He is to follow up with Dr. Sethi in approximately 2 weeks, and he will follow up with his primary care provider, Dr. Joiner, after his discharge. /[id number]/MODL MTDD
[2016-05-13] MEDS: METHOCARBAMOL 750 MG TAB PO SCH ×3 (18:26→21:45)
[2016-05-13] MEDS: METHOCARBAMOL 750 MG TAB PO PRN (18:47)
[2016-05-13] MEDS: ACETAMINOPHEN 500 MG TAB PO PRN (18:48)
[2016-05-13] MEDS: HYDROmorphONE/DILAUDID 2 MG TAB PO PRN ×2 (18:48→21:44)
[2016-05-13] MEDS ORDERED: NON-FORMULARY NEW DRUG (Mometasone/Formoterol [Dulera 200 Mcg/5 Mcg Inhaler] 2 PUFFS) IH SCH (21:00)
[2016-05-13] MEDS: GABAPENTIN 300 MG CAP PO SCH (21:46)
[2016-05-13] MEDS: metFORMIN HCL 850 MG TAB PO SCH (21:46)
[2016-05-13] MEDS: MELATONIN 3 MG TAB PO SCH (21:46)
[2016-05-13] MEDS: SENNOSIDES 1 TAB PO SCH (22:02)
[2016-05-13] MEDS: (Mometasone/Formoterol [Dulera 200 Mcg/5 Mcg Inhaler] 2 PUFFS) IH SCH (22:48)
[2016-05-14] MEDS: HYDROmorphONE/DILAUDID 2 MG TAB PO PRN ×3 (01:09→11:00)
[2016-05-14] MEDS: ACETAMINOPHEN 500 MG TAB PO PRN ×2 (03:20→11:56)
[2016-05-14] MEDS: METHOCARBAMOL 750 MG TAB PO PRN (03:20)
[2016-05-14] MEDS: METHOCARBAMOL 750 MG TAB PO SCH ×3 (07:36→22:19)
[2016-05-14] MEDS: GABAPENTIN 300 MG CAP PO SCH ×2 (08:45→22:25)
[2016-05-14] MEDS: metFORMIN HCL 850 MG TAB PO SCH ×2 (08:45→22:25)
[2016-05-14] MEDS: CLOPIDOGREL BISULFATE 75 MG TAB PO SCH (08:46)
[2016-05-14] MEDS: NEBIVOLOL HCL 5 MG TAB PO SCH (08:47)
[2016-05-14] MEDS: ATORVASTATIN CALCIUM 40 MG TAB PO SCH (08:47)
[2016-05-14] MEDS: ENOXAPARIN 40 MG/0.4 ML SYR SC SCH (08:47)
[2016-05-14] MEDS: SENNOSIDES 1 TAB PO SCH ×2 (08:48→22:28)
[2016-05-14] MEDS: TIOTROPIUM INHALER 18 MCG/DOSE 5 DOSE/MDI IH SCH (08:48)
[2016-05-14] MEDS: (Mometasone/Formoterol [Dulera 200 Mcg/5 Mcg Inhaler] 2 PUFFS) IH SCH ×2 (08:54→22:28)
[2016-05-14] MEDS: LIDOCAINE 5% 1 EA PATCH TD SCH (08:55)
--- NOTE | 2016-05-14 11:22 | SOAPPROG ---
SOAP Progress Note Assessment/Plan: Assessment: 1. Debility following surgery for lumbar spinal stenosis. He underwent a L2 to S1 total lumbar interbody fusion 0n 05/05/16. He will have physical and occupational therapy to optimize his mobility and independence with activities of daily living. 2. Pain control. This was discussed in detail with him and his . They wish to minimize sedating medications. Will continue the scheduled methocarbamol, as well as the as-needed methocarbamol. He was taking this medication prior to his hospitalization. Will continue his hydromorphone; will increase the dose ranging from 2 to 4 mg q.4 hours to 1 to 4 mg and have it available q.3 hours to better be able to treat acute worsening of his pain, but also to be able to give him smaller doses, and will continue the acetaminophen 1000 mg q.8 hours. He will be assessed for adequacy of pain control. The possibility of using a long-acting opiate was discussed, and this will be considered should his pain management not be adequate. 3. Chronic obstructive pulmonary disease and hypoxia, likely exacerbated by anemia. He will have oxygen, incentive spirometry, and inhalers that he was using prior to his admission, and it is hoped that he will be liberated from oxygen before his discharge home. 4. Hypertension. Continue amlodipine, enalapril, and nebivolol, and consider restarting hydrochlorothiazide versus titrating his current antihypertensives, which are at low dose. 5. Diabetes mellitus, type 2. Continue metformin. He had insulin sliding scale ordered, but it was not being used as his blood sugars were not sufficiently elevated. 6. Coronary artery disease. Continue clopidogrel. 7. Dyslipidemia. Continue atorvastatin. 8. Delirium. Observe for any recurrence. Continue melatonin 6 mg p.o. q.h.s. and assess the quality of his sleep and his alertness during the day. 9. Prophylaxis. Continue enoxaparin subcutaneous for DVT prophylaxis as well as sequential compression devices and EMMA hose, and encourage mobility. 10. Code status. He is a full code. FOLLOWUP PLANS: He is to follow up with Dr. Duran 05/14/16 11:22 Objective: Vital Signs Temp Pulse Resp BP Pulse Ox 36.6 C 77 16 151/88 H 92 05/14/16 06:27 05/14/16 08:47 05/13/16 20:00 05/14/16 08:47 05/14/16 06:27 05/13/16 05/14/16 05/15/16 05:59 05:59 05:59 Intake Total 360 Output Total 1250 300 Balance -890 -300 ICD10 Worksheet Patient Problems: Problems Problem Status Onset Chronic Disease Mgmt/Transitional Care Acute Chronic obstructive pulmonary disease with acute exacerbation Acute Fusion of spine of lumbar region Acute Hypoxia Acute
--- NOTE | 2016-05-14 11:22 | PDOREHIP ---
Admission [facility] - Admission - 3 Day Assessment Period Admission Date/Day 1: 05/13/16 Day 2: 05/14/16 Day 3: 05/15/16 - Active Diagnoses Comorbidities and Co-existing Conditions at Admission: 44909. PVD or PAD, 78102. DM (e.g. diabetic retinopathy, nephropathy, and neuropathy) - Skin Conditions Unhealed Pressure Ulcer (1 or more/Stage 1 or >)-Admission: 0. No
[2016-05-14] MEDS: ENALAPRIL MALEATE 10 MG TAB PO SCH (12:03)
--- NOTE | 2016-05-14 12:37 | SOAPPROG ---
SOAP Progress Note Assessment/Plan: Assessment: * Debility following surgery for lumbar spinal stenosis. He underwent a L2 to S1 total lumbar interbody fusion on 05/05/16. He will have physical and occupational therapy to optimize his mobility and independence with activities of daily living. * Pain control. Inadequate with current regimen of PRN APAP, hydromorphone and methocarbamol, and scheduled methocarbamol; not sure what role gabapentin plays. Will schedule APAP 1000 mg Q 8 hr and add morphine SR 15 mg BID. Continue to monitor. * Chronic obstructive pulmonary disease and hypoxia, likely exacerbated by anemia. He will have oxygen, incentive spirometry, and inhalers that he was using prior to his admission, and it is hoped that he will be liberated from oxygen before his discharge home. * Hypertension. Continue amlodipine, enalapril, and nebivolol, and consider restarting hydrochlorothiazide versus titrating his current antihypertensives. Await BP response to improved pain control. * \Diabetes mellitus, type 2. Continue metformin. He had insulin sliding scale ordered in the acute hospital, but it was not being used as his blood sugars were not sufficiently elevated. * Coronary artery disease. Continue clopidogrel. * Dyslipidemia. Continue atorvastatin. * Delirium. Observe for any recurrence. Continue melatonin 6 mg p.o. q.h.s. and assess the quality of his sleep and his alertness during the day. * Prophylaxis. Continue enoxaparin subcutaneous for DVT prophylaxis as well as sequential compression devices and EMMA hose, and encourage mobility. * Code status. He is a full code. FOLLOWUP PLANS: He is to follow up with Dr. Day 2 weeks after hospital discharge, approximately 05/26/16. PCP is Dr. Joiner. 05/14/16 12:37 Subjective: Had pain overnight, with overnight use of acetaminophen, methocarbamol and hydromorphone. Used 18 mg hydromorphone in past 24 hr. Objective: Vital Signs Temp Pulse Resp BP Pulse Ox 36.6 C 69 16 146/91 H 98 05/14/16 06:27 05/14/16 12:01 05/13/16 20:00 05/14/16 12:03 05/14/16 12:01 05/13/16 05/14/16 05/15/16 05:59 05:59 05:59 Intake Total 360 Output Total 1250 300 Balance -890 -300 Physical Exam - Physical Exam General Appearance: WD/WN, alert, no apparent distress Respiratory: normal breath sounds, No crackles, No rhonchi, No wheezing Cardiac/Chest: regular rate, rhythm, No edema Neuro/Psych: alert, normal mood/affect, oriented x 3, other ([place], slow processing) ICD10 Worksheet Patient Problems: Problems Problem Status Onset Chronic Disease Mgmt/Transitional Care Acute Chronic obstructive pulmonary disease with acute exacerbation Acute Fusion of spine of lumbar region Acute Hypoxia Acute
[2016-05-14 12:54] LABS: % IMMATURE GRANULYOCYTES 0.5 % (0.0-1.1); ABSOLUTE IMMATURE GRANULOCYTES 0.07 10^3/uL (0.00-0.10); ADD DIFF? NO; ADD MORPH? NO; ADD SCAN? NO; ATYPICAL LYMPHOCYTE FLAG 0 (0-99); FRAGMENT RBC FLAG 0 (0-99); HEMATOCRIT 28.6 % (40.0-51.0); LEFT SHIFT FLG 0 (0-99); LIPEMIA HEMOLYSIS FLAG 80 (0-99); MEAN CELL HEMOGLOBIN 28.2 pg (27.9-34.1); MEAN CELL HEMOGLOBIN CONCENTR. 31.5 g/dL (32.4-36.7); MEAN CELL VOLUME 89.7 fL (81.5-99.8); MEAN PLATELET VOLUME 9.9 fL (8.7-11.7); PLATELET CLUMPS FLAG 0 (0-99); PLATELET COUNT 430 10^3/uL (150-400); RED BLOOD CELL COUNT 3.19 10^6/uL (4.40-6.38); RED CELL DISTRIBUTION WIDTH 13.5 % (11.5-15.2)
[2016-05-14 13:25] LABS: ALANINE AMINOTRANSFERASE 37 IU/L (21-72); ALBUMIN 3.2 g/dL (3.5-5.0); ALKALINE PHOSPHATASE 61 IU/L (38-126); ANION GAP 9 mEq/L (8-16); ASPARTATE AMINOTRANSFERASE 33 IU/L (17-59); BILIRUBIN,TOTAL 1.1 mg/dL (0.1-1.4); CALCIUM 9.4 mg/dL (8.5-10.4); CARBON DIOXIDE 30 mEq/l (22-31); CHLORIDE 95 mEq/L (97-110); CREATININE 0.9 mg/dL (0.7-1.3); GLOMERULAR FILTRATION RATE > 60; GLUCOSE 116 mg/dL (70-100); POTASSIUM 3.8 mEq/L (3.5-5.2); SODIUM 134 mEq/L (134-144); TOTAL PROTEIN 5.5 g/dL (6.3-8.2)
[2016-05-14] MEDS: morphINE SR 15 MG TAB PO SCH ×3 (14:08→22:22)
[2016-05-14] MEDS: ACETAMINOPHEN 500 MG TAB PO SCH (22:28)
[2016-05-14] MEDS: MELATONIN 3 MG TAB PO SCH (22:28)
[2016-05-15] MEDS: ACETAMINOPHEN 500 MG TAB PO SCH ×4 (06:02→21:53)
[2016-05-15] MEDS: ENOXAPARIN 40 MG/0.4 ML SYR SC SCH (07:50)
[2016-05-15] MEDS: METHOCARBAMOL 750 MG TAB PO SCH (07:50)
[2016-05-15] MEDS: GABAPENTIN 300 MG CAP PO SCH ×2 (07:51→20:26)
[2016-05-15] MEDS: SENNOSIDES 1 TAB PO SCH ×2 (07:51→20:33)
[2016-05-15] MEDS: HYDROmorphONE/DILAUDID 2 MG TAB PO PRN ×5 (07:51→21:53)
[2016-05-15] MEDS: morphINE SR 15 MG TAB PO SCH ×2 (07:52→20:26)
[2016-05-15] MEDS: ATORVASTATIN CALCIUM 40 MG TAB PO SCH (08:56)
[2016-05-15] MEDS: CLOPIDOGREL BISULFATE 75 MG TAB PO SCH (08:56)
[2016-05-15] MEDS: ENALAPRIL MALEATE 10 MG TAB PO SCH (08:56)
[2016-05-15] MEDS: LIDOCAINE 5% 1 EA PATCH TD SCH (08:56)
[2016-05-15] MEDS: metFORMIN HCL 850 MG TAB PO SCH ×2 (08:57→20:26)
[2016-05-15] MEDS: TIOTROPIUM INHALER 18 MCG/DOSE 5 DOSE/MDI IH SCH (08:57)
[2016-05-15] MEDS: NEBIVOLOL HCL 5 MG TAB PO SCH (08:58)
--- NOTE | 2016-05-15 10:16 | SOAPPROG ---
SOAP Progress Note Assessment/Plan: Assessment: * Debility following surgery for lumbar spinal stenosis. He underwent a L2 to S1 total lumbar interbody fusion on 05/05/16. Initial FIM 75 on 05/15/16. Walked 350' and did [address] CGA FWW.Min A UB dressing, min - mod A for lumbar brace, full A for EMMA hose. Need cues for spinal precautions. Continue physical and occupational therapy to optimize his mobility and independence with activities of daily living. * Delirium. Disorientation at night noted by nurse; impulsivity, decreased memory and problem solving by OT and PT. Reduce sedating medications: will d/c scheduled methocarbamol. NURSE CASE MANAGER evaluation. * Pain control. APAP 1000 mg Q 8 hr, morphine SR 15 mg BID, hydromorphone 1 - 4 mg Q 3 hr PRN, methocarbamol 750 Q 8 hr scheduled and Q 4 hr PRN. Improved with scheduled morphine and APAP, but had pain overnight with no PRNs given. Encouraged to call nurse if he has pain. Continue to monitor. Nursing to assess for pain especially overnight, and assist with repositioning and medication. * Chronic obstructive pulmonary disease and hypoxia, likely exacerbated by anemia. He will have oxygen, incentive spirometry, and inhalers that he was using prior to his admission, and it is hoped that he will be liberated from oxygen before his discharge home. * Hypertension. Adequate control. Continue amlodipine, enalapril, and nebivolo. * Diabetes mellitus, type 2. Continue metformin. He had insulin sliding scale ordered in the acute hospital, but it was not being used as his blood sugars were not sufficiently elevated. Per his request, ordered BS checks PRN. * Coronary artery disease. Continue clopidogrel. * Dyslipidemia. Continue atorvastatin. * Prophylaxis. Continue enoxaparin subcutaneous for DVT prophylaxis as well as sequential compression devices and EMMA hose, and encourage mobility. * Code status. He is a full code. Attended staffing, 15 min. D/W case mgmt, nursing, PT, OT. Tentative discharge date of 05/23. FOLLOWUP PLANS: He is to follow up with Dr. Day 2 weeks after hospital discharge, approximately 05/26/16. PCP is Dr. Joiner. 05/15/16 12:01 Subjective: Had considerable pain this morning; also recalls pain through the night, however did not use PRN hydromorphone overnight. Wonders if he will ever get better. Denies drowsiness. No cough/dyspnea. f/c. Objective: Vital Signs Temp Pulse Resp BP Pulse Ox 36.8 C 78 16 132/82 H 94 05/15/16 06:36 05/15/16 08:58 05/15/16 06:36 05/15/16 08:58 05/15/16 06:36 Laboratory Results 05/14/16 11:00 05/14/16 11:00 05/14/16 05/15/16 05/16/16 05:59 05:59 05:59 Intake Total 360 240 220 Output Total 1250 2175 250 Balance -890 -1935 -30 - Time Spent With Patient Time Spent With Patient: Greater than 35 minutes floor time today, including more than 50% of time in coordination of care during staffing, and counseling patient. Physical Exam - Physical Exam General Appearance: WD/WN, alert, no apparent distress Respiratory: normal breath sounds, No crackles, No rhonchi, No wheezing Cardiac/Chest: regular rate, rhythm, No edema Skin: normal color, warm/dry Neuro/Psych: alert, normal mood/affect, oriented x 3 ICD10 Worksheet Patient Problems: Problems Problem Status Onset Chronic Disease Mgmt/Transitional Care Acute Chronic obstructive pulmonary disease with acute exacerbation Acute Fusion of spine of lumbar region Acute Hypoxia Acute
[2016-05-15] MEDS: (Mometasone/Formoterol [Dulera 200 Mcg/5 Mcg Inhaler] 2 PUFFS) IH SCH ×2 (11:04→20:33)
[2016-05-15] MEDS: METHOCARBAMOL 750 MG TAB PO PRN (20:26)
[2016-05-16] MEDS: ACETAMINOPHEN 500 MG TAB PO SCH ×3 (04:33→21:13)
[2016-05-16] MEDS: METHOCARBAMOL 750 MG TAB PO PRN ×2 (04:33→09:35)
[2016-05-16] MEDS ORDERED: ENALAPRIL MALEATE 20 MG TAB PO SCH (09:00)
[2016-05-16] MEDS ORDERED: NEBIVOLOL HCL 5 MG TAB PO SCH (09:00)
[2016-05-16] MEDS ORDERED: ENALAPRIL MALEATE 5 MG TAB PO SCH (09:00)
[2016-05-16] MEDS: ATORVASTATIN CALCIUM 40 MG TAB PO SCH (09:35)
[2016-05-16] MEDS: morphINE SR 15 MG TAB PO SCH ×2 (09:35→20:29)
[2016-05-16] MEDS: (Mometasone/Formoterol [Dulera 200 Mcg/5 Mcg Inhaler] 2 PUFFS) IH SCH ×2 (09:35→20:28)
[2016-05-16] MEDS: LIDOCAINE 5% 1 EA PATCH TD SCH (09:37)
[2016-05-16] MEDS: CLOPIDOGREL BISULFATE 75 MG TAB PO SCH (09:38)
[2016-05-16] MEDS: metFORMIN HCL 850 MG TAB PO SCH ×2 (09:38→20:29)
[2016-05-16] MEDS: ENOXAPARIN 40 MG/0.4 ML SYR SC SCH (09:38)
[2016-05-16] MEDS: GABAPENTIN 300 MG CAP PO SCH ×2 (09:38→20:29)
[2016-05-16] MEDS: SENNOSIDES 1 TAB PO SCH ×2 (09:38→20:29)
[2016-05-16] MEDS: TIOTROPIUM INHALER 18 MCG/DOSE 5 DOSE/MDI IH SCH (09:41)
[2016-05-16] MEDS: HYDROmorphONE/DILAUDID 2 MG TAB PO PRN ×2 (11:47→20:40)
--- NOTE | 2016-05-16 12:48 | SOAPPROG ---
SOAP Progress Note Assessment/Plan: Assessment: * Debility following surgery for lumbar spinal stenosis. He underwent a L2 to S1 total lumbar interbody fusion on 05/05/16. Initial FIM 75 on 05/15/16. Walked 350' and did [address] CGA FWW.Min A UB dressing, min - mod A for lumbar brace, full A for EMMA hose. Need cues for spinal precautions. Continue physical and occupational therapy to optimize his mobility and independence with activities of daily living. * Delirium. Disorientation at night noted by nurse; impulsivity, decreased memory and problem solving by OT and PT. Reduce sedating medications: will d/c scheduled methocarbamol. Was not compliant with SHAMPOOER evaluation; encouraged him to try again. Monitor hours of sleep. * Pain control. APAP 1000 mg Q 8 hr, morphine SR 15 mg BID, hydromorphone 1 - 4 mg Q 3 hr PRN, methocarbamol 750 Q 4 hr PRN. Improved with scheduled morphine and APAP, but had pain overnight with no PRNs given. Encouraged to call nurse if he has pain. Continue to monitor. Nursing to assess for pain especially overnight, and assist with repositioning and medication. * Chronic obstructive pulmonary disease and hypoxia, likely exacerbated by anemia. He will have oxygen, incentive spirometry, and inhalers that he was using prior to his admission, and it is hoped that he will be liberated from oxygen before his discharge home. * Hypertension. Adequate control. Continue amlodipine, enalapril, and nebivolol. * Diabetes mellitus, type 2. Continue metformin. He had insulin sliding scale ordered in the acute hospital, but it was not being used as his blood sugars were not sufficiently elevated. Per his request, ordered BS checks PRN. * Coronary artery disease. Continue clopidogrel. * Dyslipidemia. Continue atorvastatin. * Prophylaxis. Continue enoxaparin subcutaneous for DVT prophylaxis as well as sequential compression devices and EMMA hose, and encourage mobility. * Code status. He is a full code. Tentative discharge date of 05/23, to home with . FOLLOWUP PLANS: He is to follow up with Dr. Day 2 weeks after hospital discharge, approximately 05/26/16. PCP is Dr. Joiner. 05/16/16 12:54 Subjective: Unsure whether he slept last night. Had pain through the night. Did not want to do SHAMPOOER eval. Reduced appetite. Objective: Vital Signs Temp Pulse Resp BP Pulse Ox 36.9 C 87 18 120/66 94 05/16/16 08:00 05/16/16 09:42 05/16/16 08:00 05/16/16 09:42 05/16/16 08:00 Laboratory Results 05/14/16 11:00 05/14/16 11:00 05/15/16 05/16/16 05/17/16 05:59 05:59 05:59 Intake Total 227 180 480 Output Total 3221 1885 Balance -1937 -932 638 Physical Exam - Physical Exam General Appearance: WD/WN, alert, no apparent distress Respiratory: No respiratory distress, No accessory muscle use Skin: normal color, warm/dry Neuro/Psych: no motor/sensory deficits, alert, normal mood/affect ICD10 Worksheet Patient Problems: Problems Problem Status Onset Chronic Disease Mgmt/Transitional Care Acute Chronic obstructive pulmonary disease with acute exacerbation Acute Fusion of spine of lumbar region Acute Hypoxia Acute
[2016-05-17] MEDS: ACETAMINOPHEN 500 MG TAB PO SCH ×3 (06:12→21:05)
[2016-05-17] MEDS: GABAPENTIN 300 MG CAP PO SCH ×2 (08:34→20:03)
[2016-05-17] MEDS: SENNOSIDES 1 TAB PO SCH ×2 (08:34→20:03)
[2016-05-17] MEDS: metFORMIN HCL 850 MG TAB PO SCH ×2 (08:34→20:03)
[2016-05-17] MEDS: CLOPIDOGREL BISULFATE 75 MG TAB PO SCH (08:34)
[2016-05-17] MEDS: (Mometasone/Formoterol [Dulera 200 Mcg/5 Mcg Inhaler] 2 PUFFS) IH SCH ×2 (08:35→20:03)
[2016-05-17] MEDS: ENOXAPARIN 40 MG/0.4 ML SYR SC SCH (08:35)
[2016-05-17] MEDS: ATORVASTATIN CALCIUM 40 MG TAB PO SCH (08:35)
[2016-05-17] MEDS: morphINE SR 15 MG TAB PO SCH ×2 (08:35→20:03)
[2016-05-17] MEDS: TIOTROPIUM INHALER 18 MCG/DOSE 5 DOSE/MDI IH SCH (08:37)
[2016-05-17] MEDS: LIDOCAINE 5% 1 EA PATCH TD SCH (08:37)
[2016-05-17] MEDS ORDERED: NEBIVOLOL HCL 2.5 MG PO SCH (09:00)
[2016-05-17] MEDS ORDERED: ENALAPRIL MALEATE 20 MG TAB PO SCH (09:00)
[2016-05-17] MEDS: HYDROmorphONE/DILAUDID 2 MG TAB PO PRN ×4 (09:44→21:06)
--- NOTE | 2016-05-17 11:54 | SOAPPROG ---
SOAP Progress Note Assessment/Plan: Assessment: * Debility following surgery for lumbar spinal stenosis. He underwent a L2 to S1 total lumbar interbody fusion on 05/05/16. Initial FIM 75 on 05/15/16. Walked 350' and did 3 [address] CGA FWW.Min A UB dressing, min - mod A for lumbar brace, full A for EMMA hose. Need cues for spinal precautions. Continue physical and occupational therapy to optimize his mobility and independence with activities of daily living. * Delirium. Disorientation at night noted by nurse; impulsivity, decreased memory and problem solving by OT and PT. PLUSH DRESSER evaluation with mild to moderate decreased attn, memory and prob solving. Continue PLUSH DRESSER. * Pain control. APAP 1000 mg Q 8 hr, morphine SR 15 mg BID, hydromorphone 1 - 4 mg Q 3 hr PRN, methocarbamol 750 Q 4 hr PRN. Improved with scheduled morphine and APAP, but had pain overnight with no PRNs given. Encouraged to call nurse if he has pain. Continue to monitor. Nursing to assess for pain especially overnight, and assist with repositioning and medication. Use hydromorphone first for breakthrough; methocarbamol is 2nd line. OT added padding under lumbar corset 05/17/16. * Chronic obstructive pulmonary disease and hypoxia, likely exacerbated by anemia. He will have oxygen, incentive spirometry, and inhalers that he was using prior to his admission, and it is hoped that he will be liberated from oxygen before his discharge home. * Hypertension. Adequate control. Continue amlodipine, enalapril, and nebivolol. * Diabetes mellitus, type 2. Continue metformin. He had insulin sliding scale ordered in the acute hospital, but it was not being used as his blood sugars were not sufficiently elevated. Per his request, ordered BS checks PRN. * Coronary artery disease. Continue clopidogrel. * Dyslipidemia. Continue atorvastatin. * Prophylaxis. Continue enoxaparin subcutaneous for DVT prophylaxis as well as sequential compression devices and EMMA hose, and encourage mobility. * Code status. He is a full code. Tentative discharge date of 05/23, to home with . FOLLOWUP PLANS: He is to follow up with Dr. Day 2 weeks after hospital discharge, approximately 05/26/16. PCP is Dr. Joiner. 05/17/16 13:44 Subjective: Intermittent pain. Methocarbamol did not help this morning. Worse with prolonged sitting, better when up and walking. Slept well. No cough/dyspnea, f /c. Objective: Vital Signs Temp Pulse Resp BP Pulse Ox 36.4 C 90 16 119/70 96 05/17/16 06:29 05/17/16 08:36 05/17/16 06:29 05/17/16 08:36 05/17/16 06:29 Laboratory Results 05/14/16 11:00 05/14/16 11:00 05/16/16 05/17/16 05/18/16 05:59 05:59 05:59 Intake Total 740 1360 300 Output Total 1675 450 Balance -935 910 300 Physical Exam - Physical Exam General Appearance: WD/WN, alert, no apparent distress Respiratory: No accessory muscle use, No decreased breath sounds Skin: normal color, warm/dry Neuro/Psych: alert, normal mood/affect, oriented x 3 ICD10 Worksheet Patient Problems: Problems Problem Status Onset Chronic Disease Mgmt/Transitional Care Acute Chronic obstructive pulmonary disease with acute exacerbation Acute Fusion of spine of lumbar region Acute Hypoxia Acute
[2016-05-17] MEDS: PATCH REMOVAL 1 EA PATCH TD SCH (21:10)
[2016-05-18] MEDS: HYDROmorphONE/DILAUDID 2 MG TAB PO PRN ×5 (02:57→19:23)
[2016-05-18] MEDS: ACETAMINOPHEN 500 MG TAB PO SCH ×3 (05:35→23:16)
[2016-05-18] MEDS ORDERED: NEBIVOLOL HCL 2.5 MG PO SCH (09:00)
[2016-05-18] MEDS: ENOXAPARIN 40 MG/0.4 ML SYR SC SCH (09:04)
[2016-05-18] MEDS: metFORMIN HCL 850 MG TAB PO SCH ×2 (09:05→20:24)
[2016-05-18] MEDS: CLOPIDOGREL BISULFATE 75 MG TAB PO SCH (09:05)
[2016-05-18] MEDS: GABAPENTIN 300 MG CAP PO SCH ×3 (09:05→23:16)
[2016-05-18] MEDS: SENNOSIDES 1 TAB PO SCH ×2 (09:05→20:24)
[2016-05-18] MEDS: ATORVASTATIN CALCIUM 40 MG TAB PO SCH (09:06)
[2016-05-18] MEDS: morphINE SR 15 MG TAB PO SCH ×3 (09:06→23:15)
[2016-05-18] MEDS: TIOTROPIUM INHALER 18 MCG/DOSE 5 DOSE/MDI IH SCH (09:12)
[2016-05-18] MEDS: NEBIVOLOL HCL 5 MG TAB PO SCH (09:13)
[2016-05-18] MEDS: ENALAPRIL MALEATE 20 MG TAB PO SCH (09:14)
[2016-05-18] MEDS: LIDOCAINE 5% 1 EA PATCH TD SCH (09:16)
[2016-05-18] MEDS: (Mometasone/Formoterol [Dulera 200 Mcg/5 Mcg Inhaler] 2 PUFFS) IH SCH ×2 (09:17→20:30)
--- NOTE | 2016-05-18 14:00 | SOAPPROG ---
SOAP Progress Note Assessment/Plan: Assessment: * Debility following surgery for lumbar spinal stenosis. He underwent a L2 to S1 total lumbar interbody fusion on 05/05/16. Initial FIM 75 on 05/15/16. Walked 350' and did 3 [address] steps CGA FWW.Min A UB dressing, min - mod A for lumbar brace, full A for EMMA hose. Need cues for spinal precautions. Continue physical and occupational therapy to optimize his mobility and independence with activities of daily living. * Delirium. Disorientation at night noted by nurse; impulsivity, decreased memory and problem solving by OT and PT. MAINTENANCE SUPERVISOR ELECTRICAL evaluation with mild to moderate decreased attn, memory and prob solving. Continue MAINTENANCE SUPERVISOR ELECTRICAL. Sleeping better. * Pain control. APAP 1000 mg Q 8 hr, morphine SR 15 mg BID, hydromorphone 1 - 4 mg Q 3 hr PRN, methocarbamol 750 Q 4 hr PRN. Improved with scheduled morphine and APAP, but had pain overnight with no PRNs given. Encouraged to call nurse if he has pain. Continue to monitor. Nursing to assess for pain especially overnight, and assist with repositioning and medication. Use hydromorphone first for breakthrough; methocarbamol is 2nd line. OT added padding under lumbar corset 05/17/16. Increase morphine S% from 15 mg BID to 15 mg Q 8 hr stating 05/18/16. * Chronic obstructive pulmonary disease and hypoxia, likely exacerbated by anemia. He will have oxygen, incentive spirometry, and inhalers that he was using prior to his admission, and it is hoped that he will be liberated from oxygen before his discharge home. * Hypertension. Adequate control. Continue amlodipine, enalapril, and nebivolol. * Diabetes mellitus, type 2. Continue metformin. He had insulin sliding scale ordered in the acute hospital, but it was not being used as his blood sugars were not sufficiently elevated. Per his request, ordered BS checks PRN. * Coronary artery disease. Continue clopidogrel. * Dyslipidemia. Continue atorvastatin. * Prophylaxis. Continue enoxaparin subcutaneous for DVT prophylaxis as well as sequential compression devices and EMMA hose, and encourage mobility. * Code status. He is a full code. Tentative discharge date of 05/23, to home with . FOLLOWUP PLANS: He is to follow up with Dr. Day 2 weeks after hospital discharge, approximately 05/26/16. PCP is Dr. Joiner. Subjective: Reports he had a "good workout" with PT today. Now c/o back pain. No f/c, dyspnea, cough, n/v/c/d. Objective: Vital Signs Temp Pulse Resp BP Pulse Ox 36.7 C 72 16 130/58 H 92 05/18/16 05:46 05/18/16 09:13 05/18/16 05:46 05/18/16 09:14 05/18/16 05:46 Laboratory Results 05/14/16 11:00 05/14/16 11:00 05/17/16 05/18/16 05/19/16 05:59 05:59 05:59 Intake Total 1360 1600 Output Total 450 700 Balance 910 900 Physical Exam - Physical Exam General Appearance: WD/WN, alert, no apparent distress Respiratory: No respiratory distress, No accessory muscle use Skin: normal color, warm/dry, other (Incision mostly healed, no erythema or dehiscence, scant drainage on dressing.) Neuro/Psych: no motor/sensory deficits, alert, normal mood/affect, oriented x 3 ICD10 Worksheet Patient Problems: Problems Problem Status Onset Chronic Disease Mgmt/Transitional Care Acute Chronic obstructive pulmonary disease with acute exacerbation Acute Fusion of spine of lumbar region Acute Hypoxia Acute
[2016-05-18] MEDS: BISACODYL 10 MG SUPP PR PRN (19:24)
[2016-05-18] MEDS: METHOCARBAMOL 750 MG TAB PO PRN (20:24)
[2016-05-18] MEDS: PATCH REMOVAL 1 EA PATCH TD SCH (20:26)
[2016-05-19] MEDS: ACETAMINOPHEN 500 MG TAB PO SCH ×3 (05:58→21:02)
[2016-05-19] MEDS: morphINE SR 15 MG TAB PO SCH ×3 (05:59→21:02)
[2016-05-19] MEDS: ATORVASTATIN CALCIUM 40 MG TAB PO SCH (08:31)
[2016-05-19] MEDS: CLOPIDOGREL BISULFATE 75 MG TAB PO SCH (08:32)
[2016-05-19] MEDS: ENALAPRIL MALEATE 20 MG TAB PO SCH (08:33)
[2016-05-19] MEDS: ENOXAPARIN 40 MG/0.4 ML SYR SC SCH (08:34)
[2016-05-19] MEDS: metFORMIN HCL 850 MG TAB PO SCH ×2 (08:35→21:03)
[2016-05-19] MEDS: NEBIVOLOL HCL 5 MG TAB PO SCH (08:35)
[2016-05-19] MEDS: (Mometasone/Formoterol [Dulera 200 Mcg/5 Mcg Inhaler] 2 PUFFS) IH SCH ×2 (08:35→21:08)
[2016-05-19] MEDS: GABAPENTIN 300 MG CAP PO SCH ×4 (08:35→21:03)
[2016-05-19] MEDS: SENNOSIDES 1 TAB PO SCH ×2 (08:36→21:11)
[2016-05-19] MEDS: TIOTROPIUM INHALER 18 MCG/DOSE 5 DOSE/MDI IH SCH (08:37)
[2016-05-19] MEDS: POLYETHYLENE GLYCOL 3350 17 GM PKT PO SCH (09:01)
[2016-05-19] MEDS: HYDROmorphONE/DILAUDID 2 MG TAB PO PRN ×3 (09:04→21:04)
--- NOTE | 2016-05-19 11:35 | SOAPPROG ---
SOAP Progress Note Assessment/Plan: Assessment: * Debility following surgery for lumbar spinal stenosis. He underwent a L2 to S1 total lumbar interbody fusion on 05/05/16. Initial FIM 75 on 05/15/16. Walked 350' and did 3 [address] steps CGA FWW. Min A UB dressing, min - mod A for lumbar brace, full A for EMMA hose. Cues for spinal precautions. Continue physical and occupational therapy to optimize his mobility and independence with activities of daily living. * Delirium. Disorientation at night noted by nurse; impulsivity, decreased memory and problem solving by OT and PT. FORKLIFT TECHNICIAN evaluation with mild to moderate decreased attn, memory and prob solving. Continue FORKLIFT TECHNICIAN. Sleeping better. * Pain control. APAP 1000 mg Q 8 hr, morphine SR 15 mg Q8 hr (increased form BID on 05/18/16), hydromorphone 1 - 4 mg Q 3 hr PRN, methocarbamol 750 Q 4 hr PRN. Gabapentin restarted 05/18/16 and titrated from 300 mg BID to 300 mg morning and afternoon and 600 mg QHS. Pain much improved 05/19/16. Nursing to assess for pain especially overnight, and assist with repositioning and medication. Use hydromorphone first for breakthrough; methocarbamol is 2nd line. OT added padding under lumbar corset 05/17/16. * Chronic obstructive pulmonary disease and hypoxia, likely exacerbated by anemia. Continue oxygen, incentive spirometry, and inhalers that he was using prior to his admission. * Hypertension. Adequate control. Continue amlodipine, enalapril, and nebivolol. * Diabetes mellitus, type 2. Continue metformin. He had insulin sliding scale ordered in the acute hospital, but it was not being used as his blood sugars were not sufficiently elevated. Per his request, ordered BS checks PRN. * Coronary artery disease. Continue clopidogrel. * Dyslipidemia. Continue atorvastatin. * Prophylaxis. Continue enoxaparin subcutaneous for DVT prophylaxis as well as sequential compression devices and EMMA hose, and encourage mobility. * Code status. He is a full code. Tentative discharge date of 05/23, to home with . FOLLOWUP PLANS: He is to follow up with Dr. Day 2 weeks after hospital discharge, approximately 05/26/16. PCP is Dr. Joiner. 05/19/16 11:31 Subjective: Slept better. Pain improved. had large bowel movement and abdomen feels better. Objective: Vital Signs Temp Pulse Resp BP Pulse Ox 36.7 C 72 18 122/78 H 91 L 05/19/16 06:08 05/19/16 08:35 05/19/16 06:08 05/19/16 08:35 05/19/16 06:08 Laboratory Results 05/14/16 11:00 05/14/16 11:00 05/18/16 05/19/16 05/20/16 05:59 05:59 05:59 Intake Total 1600 500 500 Output Total 700 500 Balance 900 0 500 Physical Exam - Physical Exam General Appearance: WD/WN, alert, no apparent distress Respiratory: No respiratory distress, No accessory muscle use Skin: normal color, warm/dry Neuro/Psych: no motor/sensory deficits, alert, normal mood/affect, oriented x 3 ICD10 Worksheet Patient Problems: Problems Problem Status Onset Chronic Disease Mgmt/Transitional Care Acute Chronic obstructive pulmonary disease with acute exacerbation Acute Fusion of spine of lumbar region Acute Hypoxia Acute
[2016-05-19] MEDS: BISACODYL 10 MG SUPP PR PRN (16:10)
[2016-05-19] MEDS: ONDANSETRON DISINTEGRATING 4 MG TAB PO PRN (17:08)
[2016-05-19] MEDS: PATCH REMOVAL 1 EA PATCH TD SCH (21:12)
[2016-05-20] MEDS: HYDROmorphONE/DILAUDID 2 MG TAB PO PRN ×5 (00:16→16:52)
[2016-05-20] MEDS: METHOCARBAMOL 750 MG TAB PO PRN ×2 (02:57→12:25)
[2016-05-20] MEDS: morphINE SR 15 MG TAB PO SCH ×2 (06:09→14:50)
[2016-05-20] MEDS: ACETAMINOPHEN 500 MG TAB PO SCH ×2 (06:09→14:43)
[2016-05-20] MEDS: ONDANSETRON DISINTEGRATING 4 MG TAB PO PRN ×2 (07:26→14:35)
[2016-05-20] MEDS: GABAPENTIN 300 MG CAP PO SCH ×2 (07:28→16:58)
[2016-05-20] MEDS: ENOXAPARIN 40 MG/0.4 ML SYR SC SCH (07:28)
[2016-05-20] MEDS: (Mometasone/Formoterol [Dulera 200 Mcg/5 Mcg Inhaler] 2 PUFFS) IH SCH (07:29)
[2016-05-20] MEDS: TIOTROPIUM INHALER 18 MCG/DOSE 5 DOSE/MDI IH SCH (07:29)
[2016-05-20] MEDS: ENALAPRIL MALEATE 20 MG TAB PO SCH (09:09)
[2016-05-20] MEDS: NEBIVOLOL HCL 5 MG TAB PO SCH (09:10)
[2016-05-20] MEDS: ATORVASTATIN CALCIUM 40 MG TAB PO SCH (09:11)
[2016-05-20] MEDS: SENNOSIDES 1 TAB PO SCH (09:12)
[2016-05-20] MEDS: POLYETHYLENE GLYCOL 3350 17 GM PKT PO SCH (09:12)
[2016-05-20] MEDS: metFORMIN HCL 850 MG TAB PO SCH ×2 (09:12→23:36)
[2016-05-20] MEDS: CLOPIDOGREL BISULFATE 75 MG TAB PO SCH (09:12)
[2016-05-20] MEDS ORDERED: MAG HYDROX/AL HYDROX/SIMETH 30 ML UDCUP ONE (12:22)
[2016-05-20] MEDS ORDERED: SIMETHICONE 80 MG TAB CHEW PO PRN (13:49)
[2016-05-20] MEDS ORDERED: MAGNESIUM HYDROXIDE 30 ML UDCUP PO PRN (13:50)
[2016-05-20] MEDS ORDERED: MAG HYDROX/AL HYDROX/SIMETH 30 ML UDCUP PO PRN (13:50)
[2016-05-20] MEDS ORDERED: MAGNESIUM CITRATE 300 ML BOTTLE PO ONE (16:55)
--- NOTE | 2016-05-20 17:19 | SOAPPROG ---
SOAP Progress Note Assessment/Plan: Assessment: * Debility following surgery for lumbar spinal stenosis. He underwent a L2 to S1 total lumbar interbody fusion on 05/05/16. Initial FIM 75 on 05/15/16. Walked 350' and did 3 [address] steps CGA FWW. Min A UB dressing, min - mod A for lumbar brace, full A for EMMA hose. Cues for spinal precautions. Continue physical and occupational therapy to optimize his mobility and independence with activities of daily living. * Delirium. Disorientation at night noted by nurse; impulsivity, decreased memory and problem solving by OT and PT. DEGREASER evaluation with mild to moderate decreased attn, memory and prob solving. Continue DEGREASER. Sleeping better. * Pain control. APAP 1000 mg Q 8 hr, morphine SR 15 mg Q8 hr (increased form BID on 05/18/16), hydromorphone 1 - 4 mg Q 3 hr PRN, methocarbamol 750 Q 4 hr PRN. Gabapentin restarted 05/18/16 and titrated from 300 mg BID to 300 mg morning and afternoon and 600 mg QHS. Pain much improved 05/19/16. Nursing to assess for pain especially overnight, and assist with repositioning and medication. Use hydromorphone first for breakthrough; methocarbamol is 2nd line. OT added padding under lumbar corset 05/17/16. * Constipation: Increasing bowel regiment, XR with moderate stool content/no ileus * Chronic obstructive pulmonary disease and hypoxia, likely exacerbated by anemia. Continue oxygen, incentive spirometry, and inhalers that he was using prior to his admission. * Hypertension. Adequate control. Continue amlodipine, enalapril, and nebivolol. * Diabetes mellitus, type 2. Continue metformin. He had insulin sliding scale ordered in the acute hospital, but it was not being used as his blood sugars were not sufficiently elevated. Per his request, ordered BS checks PRN. * Coronary artery disease. Continue clopidogrel. * Dyslipidemia. Continue atorvastatin. * Prophylaxis. Continue enoxaparin subcutaneous for DVT prophylaxis as well as sequential compression devices and EMMA hose, and encourage mobility. * Code status. He is a full code. Tentative discharge date of 05/23, to home with . FOLLOWUP PLANS: He is to follow up with Dr. Day 2 weeks after hospital discharge, approximately 05/26/16. PCP is Dr. Keidan. Subjective: No events. Pain well controlled on current regiment but notes increasing feelings of anorexia, distension and mild nausea. Some small BM's but feels that "a lot is still in there". No emesis or fevers. Objective: Vital Signs Temp Pulse Resp BP Pulse Ox 36.2 C 64 16 145/64 H 98 05/20/16 05:10 05/20/16 09:10 05/20/16 05:10 05/20/16 09:12 05/20/16 05:10 Laboratory Results 05/14/16 11:00 05/14/16 11:00 05/19/16 05/20/16 05/21/16 05:59 05:59 05:59 Intake Total 500 1840 600 Output Total 500 925 625 Balance 0 915 -25 - Pending Discharge Pending Discharge Within 24 Hours: No Pending Discharge Within 48 Hours: No Physical Exam - Physical Exam General Appearance: alert, no apparent distress Neck: supple Respiratory: lungs clear Cardiac/Chest: regular rate, rhythm Abdomen: soft, distended, other (Hyperactive bowel sounds) Skin: normal color Neuro/Psych: alert, normal mood/affect, oriented x 3, No cognition abnormalities , No speech abnormalities ICD10 Worksheet Patient Problems: Problems Problem Status Onset Chronic Disease Mgmt/Transitional Care Acute Chronic obstructive pulmonary disease with acute exacerbation Acute Fusion of spine of lumbar region Acute Hypoxia Acute
[2016-05-20] MEDS: BISACODYL 10 MG SUPP PR PRN (18:25)
[2016-05-21] MEDS: HYDROmorphONE/DILAUDID 2 MG TAB PO PRN (00:19)
[2016-05-21] MEDS: morphINE SR 15 MG TAB PO SCH ×3 (00:20→14:51)
[2016-05-21] MEDS: ACETAMINOPHEN 500 MG TAB PO SCH ×4 (00:20→20:46)
[2016-05-21] MEDS: GABAPENTIN 300 MG CAP PO SCH ×6 (00:21→20:46)
[2016-05-21] MEDS: SENNOSIDES 1 TAB PO SCH ×3 (00:21→20:46)
[2016-05-21] MEDS: (Mometasone/Formoterol [Dulera 200 Mcg/5 Mcg Inhaler] 2 PUFFS) IH SCH ×3 (00:24→20:54)
[2016-05-21] MEDS: PATCH REMOVAL 1 EA PATCH TD SCH ×2 (00:27→20:53)
[2016-05-21] MEDS: METHOCARBAMOL 750 MG TAB PO PRN (02:47)
[2016-05-21] MEDS: CLOPIDOGREL BISULFATE 75 MG TAB PO SCH (09:04)
[2016-05-21] MEDS: ENOXAPARIN 40 MG/0.4 ML SYR SC SCH (09:04)
[2016-05-21] MEDS: ENALAPRIL MALEATE 20 MG TAB PO SCH (09:04)
[2016-05-21] MEDS: ATORVASTATIN CALCIUM 40 MG TAB PO SCH (09:05)
[2016-05-21] MEDS: POLYETHYLENE GLYCOL 3350 17 GM PKT PO SCH (09:06)
[2016-05-21] MEDS: TIOTROPIUM INHALER 18 MCG/DOSE 5 DOSE/MDI IH SCH (09:07)
[2016-05-21] MEDS: NEBIVOLOL HCL 5 MG TAB PO SCH (09:39)
[2016-05-21] MEDS ORDERED: morphINE SR 15 MG TAB PO ONE (22:00)
[2016-05-22] MEDS: oxyCODONE IR 5 MG TAB PO PRN ×2 (02:31→17:33)
[2016-05-22] MEDS: ACETAMINOPHEN 500 MG TAB PO SCH ×3 (05:46→21:00)
[2016-05-22] MEDS: CLOPIDOGREL BISULFATE 75 MG TAB PO SCH (09:06)
[2016-05-22] MEDS: ENOXAPARIN 40 MG/0.4 ML SYR SC SCH (09:06)
[2016-05-22] MEDS: GABAPENTIN 300 MG CAP PO SCH ×4 (09:06→21:00)
[2016-05-22] MEDS: NEBIVOLOL HCL 5 MG TAB PO SCH (09:07)
[2016-05-22] MEDS: SENNOSIDES 1 TAB PO SCH ×2 (09:07→21:01)
[2016-05-22] MEDS: ENALAPRIL MALEATE 20 MG TAB PO SCH (09:08)
[2016-05-22] MEDS: ATORVASTATIN CALCIUM 40 MG TAB PO SCH (09:08)
[2016-05-22] MEDS: TIOTROPIUM INHALER 18 MCG/DOSE 5 DOSE/MDI IH SCH (09:08)
[2016-05-22] MEDS: POLYETHYLENE GLYCOL 3350 17 GM PKT PO SCH (09:08)
[2016-05-22] MEDS: (Mometasone/Formoterol [Dulera 200 Mcg/5 Mcg Inhaler] 2 PUFFS) IH SCH ×3 (09:09→22:33)
--- NOTE | 2016-05-22 12:38 | SOAPPROG ---
SOAP Progress Note Assessment/Plan: Assessment: * Debility following surgery for lumbar spinal stenosis. He underwent a L2 to S1 total lumbar interbody fusion on 05/05/16. Initial FIM 75 on 05/15/16; improved to 94 as of 05/22/16.. Walked 400' and did 3 curb steps X 4 with supervision and cane. Supervision for ADLs but much cueing required for safety and spinal precautions. Unable to safely manage O2 tubing. Continue physical and occupational therapy to optimize his mobility and independence with activities of daily living. * Delirium. Cognitive impairment persisting. Decreased memory, new learning, problem solving and attention. Impulsive. Was unable to locate the current month in a calendar. Needs 24 hr supervision for safety. Continue ASSISTANT PROFESSOR SCULPTURE. * Pain control. Sustained release morphine and hydromorphone discontinued yesterday; continues scheduled APAP and PRN oxycodone. * Chronic obstructive pulmonary disease and hypoxia, likely exacerbated by anemia. Continue oxygen, incentive spirometry, and inhalers that he was using prior to his admission. Worsening oxygenation? Check CBC. No S/Sx pneumonia. * Abd pain/constipation. Verified on abd CT 05/20/16 and laxatives titrated * Hypertension. Adequate control. Continue amlodipine, enalapril, and nebivolol. * Diabetes mellitus, type 2. Continue metformin. He had insulin sliding scale ordered in the acute hospital, but it was not being used as his blood sugars were not sufficiently elevated. Per his request, ordered BS checks PRN. * Coronary artery disease. Continue clopidogrel. * Dyslipidemia. Continue atorvastatin. * Prophylaxis. Mobility much improved. Will d/c SCDs, EMMA hose and enoxaparin 05/22/16. * Code status. He is a full code. Attended staffing, 15 min. D/W case mgmt, nursing, PT, OT, ASSISTANT PROFESSOR SCULPTURE, pharmacy, production engineer. Currently needs 24 hr supervision for safety and spinal precautions. Hope for continued cognitive improvement. Tentative discharge 05/26, to home with . Attended family conference, 30 min. Patient's , son and daughter were present. D/C case mgmt, nursing, PT, OT, ASSISTANT PROFESSOR SCULPTURE. Emphasized need for supervision for safety; discussed prognosis post-delirium re cognition. FOLLOWUP PLANS: He is to follow up with Dr. Day 05/26/16 at 1000[address] Joiner. 05/22/16 12:39 Subjective: Had pain overnight, treated with oxycodone. Morphine SR discontinued after yesterday sandeep Has been needing )2 duringthe day for 2 dys.ing. 18 mg of hydromorphone 2 days ago then none since early AM 05/21/16. Has been using O2 during the day X 2 days. Objective: Vital Signs Temp Pulse Resp BP Pulse Ox 36.7 C 72 18 128/62 H 98 05/22/16 05:52 05/22/16 09:07 05/22/16 05:52 05/22/16 09:09 05/22/16 05:52 Laboratory Results 05/14/16 11:00 05/14/16 11:00 05/21/16 05/22/16 05/23/16 05:59 05:59 05:59 Intake Total 1125 1140 360 Output Total 875 100 200 Balance 250 1040 160 - Time Spent With Patient Time Spent With Patient: Greater than 35 minutes floor time today, including more than 50% of time in coordination of care during staffing meeting and family meeting, and counseling patient and family. Physical Exam - Physical Exam General Appearance: WD/WN, alert, no apparent distress Respiratory: normal breath sounds, No crackles, No rhonchi, No wheezing Cardiac/Chest: regular rate, rhythm, systolic murmur (2/4 LSB and RSB), No edema , No JVD Abdomen: normal bowel sounds, non-tender, soft, No distended Skin: other (Incision C/D/I. Firm mas spalpable L proximal aspect.) Neuro/Psych: alert, normal mood/affect ICD10 Worksheet Patient Problems: Problems Problem Status Onset Chronic Disease [facility]/Transitional Care Acute Chronic obstructive pulmonary disease with acute exacerbation Acute Fusion of spine of lumbar region Acute Hypoxia Acute
[2016-05-22 15:28] LABS: % IMMATURE GRANULYOCYTES 0.3 % (0.0-1.1); ABSOLUTE IMMATURE GRANULOCYTES 0.04 10^3/uL (0.00-0.10); ADD DIFF? NO; ADD MORPH? NO; ADD SCAN? NO; ATYPICAL LYMPHOCYTE FLAG 0 (0-99); FRAGMENT RBC FLAG 10 (0-99); HEMATOCRIT 29.6 % (40.0-51.0); HEMOGLOBIN 9.3 g/dL (13.7-17.5); LEFT SHIFT FLG 0 (0-99); LIPEMIA HEMOLYSIS FLAG 80 (0-99); MEAN CELL HEMOGLOBIN 28.9 pg (27.9-34.1); MEAN CELL HEMOGLOBIN CONCENTR. 31.4 g/dL (32.4-36.7); MEAN CELL VOLUME 91.9 fL (81.5-99.8); MEAN PLATELET VOLUME 10.2 fL (8.7-11.7); PLATELET CLUMPS FLAG 0 (0-99); PLATELET COUNT 464 10^3/uL (150-400); RED BLOOD CELL COUNT 3.22 10^6/uL (4.40-6.38); RED CELL DISTRIBUTION WIDTH 14.1 % (11.5-15.2)
[2016-05-22] MEDS: METHOCARBAMOL 750 MG TAB PO PRN (21:00)
[2016-05-22] MEDS: metFORMIN HCL 850 MG TAB PO SCH (22:29)
[2016-05-23] MEDS: ACETAMINOPHEN 500 MG TAB PO SCH ×3 (05:18→21:08)
[2016-05-23] MEDS: oxyCODONE IR 5 MG TAB PO PRN ×2 (05:19→23:47)
[2016-05-23] MEDS: POLYETHYLENE GLYCOL 3350 17 GM PKT PO SCH (10:24)
[2016-05-23] MEDS: ATORVASTATIN CALCIUM 40 MG TAB PO SCH (10:27)
[2016-05-23] MEDS: ENALAPRIL MALEATE 20 MG TAB PO SCH (10:29)
[2016-05-23] MEDS: CLOPIDOGREL BISULFATE 75 MG TAB PO SCH (10:29)
[2016-05-23] MEDS: metFORMIN HCL 850 MG TAB PO SCH ×2 (10:30→21:09)
[2016-05-23] MEDS: GABAPENTIN 300 MG CAP PO SCH ×4 (10:30→21:08)
[2016-05-23] MEDS: SENNOSIDES 1 TAB PO SCH ×2 (10:31→21:08)
[2016-05-23] MEDS: NEBIVOLOL HCL 5 MG TAB PO SCH (10:31)
[2016-05-23] MEDS: TIOTROPIUM INHALER 18 MCG/DOSE 5 DOSE/MDI IH SCH (11:02)
[2016-05-23] MEDS: (Mometasone/Formoterol [Dulera 200 Mcg/5 Mcg Inhaler] 2 PUFFS) IH SCH ×2 (11:03→23:43)
--- NOTE | 2016-05-23 15:06 | SOAPPROG ---
SOAP Progress Note Assessment/Plan: Assessment: * Debility following surgery for lumbar spinal stenosis. He underwent a L2 to S1 total lumbar interbody fusion on 05/05/16. Initial FIM 75 on 05/15/16; improved to 94 as of 05/22/16. Walked 400' and did 3 curb steps X 4 with supervision and cane. Supervision for ADLs but much cueing required for safety and spinal precautions. Unable to safely manage O2 tubing. Continue physical and occupational therapy to optimize his mobility and independence with activities of daily living. * Delirium. Cognitive impairment persisting. Decreased memory, new learning, problem solving and attention. Impulsive. Was unable to locate the current month in a calendar. Needs 24 hr supervision for safety. Seems to have poor recall for events of the morning today 05/23/16. Continue low stimulation and encourage sleep. 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 * Pain control. Sustained release morphine and hydromorphone discontinued ; continues scheduled APAP and PRN oxycodone. * Chronic obstructive pulmonary disease and hypoxia, likely exacerbated by anemia. Continue oxygen, incentive spirometry, and inhalers that he was using prior to his admission. Worsening oxygenation05/22/16? CBC with improving anemia. No S/Sx pneumonia. * Leukocytosis on CBC, chronic, stable, due to CLL. * Abd pain/constipation. Verified on abd CT 05/20/16 and laxatives titrated; responding. * Hypertension. Adequate control. Continue amlodipine, enalapril, and nebivolol. * Diabetes mellitus, type 2. Continue metformin. He had insulin sliding scale ordered in the acute hospital, but it was not being used as his blood sugars were not sufficiently elevated. Per his request, ordered BS checks PRN. * Coronary artery disease. Continue clopidogrel. * Dyslipidemia. Continue atorvastatin. * Prophylaxis. Mobility much improved. Will d/c SCDs, EMMA hose and enoxaparin 05/22/16. * Code status. He is a full code. Currently needs 24 hr supervision for safety and spinal precautions. Hope for continued cognitive improvement. Tentative discharge 05/26/16, to home with . FOLLOWUP PLANS: He is to follow up with Dr. Day 05/26/16 at [address] Joiner. 05/23/16 15:02 Subjective: Still with some pain adjacent to distal incision. Better with ambulation. OT noted increased confusion this morning. Had pain in early AM treated with oxycodone. Bowels moving. Objective: Vital Signs Temp Pulse Resp BP Pulse Ox 36.7 C 85 16 108/68 92 05/23/16 07:28 05/23/16 10:31 05/23/16 07:28 05/23/16 10:31 05/23/16 12:21 Laboratory Results 05/22/16 14:50 05/14/16 11:00 05/22/16 05/23/16 05/24/16 05:59 05:59 05:59 Intake Total 1140 1596 840 Output Total 100 1200 550 Balance 1040 396 290 Physical Exam - Physical Exam General Appearance: WD/WN, alert, no apparent distress Respiratory: No respiratory distress, No accessory muscle use Skin: normal color, warm/dry Neuro/Psych: alert, normal mood/affect, No abnormal gait (Normal stance and gait pattern with FWW.) ICD10 Worksheet Patient Problems: Problems Problem Status Onset Chronic Disease Mgmt/Transitional Care Acute Chronic obstructive pulmonary disease with acute exacerbation Acute Fusion of spine of lumbar region Acute Hypoxia Acute
[2016-05-23] MEDS: METHOCARBAMOL 750 MG TAB PO PRN (21:09)
[2016-05-24] MEDS: ACETAMINOPHEN 500 MG TAB PO SCH ×3 (05:00→21:03)
[2016-05-24] MEDS: oxyCODONE IR 5 MG TAB PO PRN ×3 (07:29→18:31)
[2016-05-24] MEDS: METHOCARBAMOL 750 MG TAB PO PRN (08:58)
[2016-05-24] MEDS: ATORVASTATIN CALCIUM 40 MG TAB PO SCH (09:00)
[2016-05-24] MEDS: ENALAPRIL MALEATE 20 MG TAB PO SCH (09:01)
[2016-05-24] MEDS: CLOPIDOGREL BISULFATE 75 MG TAB PO SCH (09:01)
[2016-05-24] MEDS: GABAPENTIN 300 MG CAP PO SCH ×4 (09:02→21:05)
[2016-05-24] MEDS: metFORMIN HCL 850 MG TAB PO SCH ×2 (09:02→21:02)
[2016-05-24] MEDS: (Mometasone/Formoterol [Dulera 200 Mcg/5 Mcg Inhaler] 2 PUFFS) IH SCH ×2 (09:03→20:26)
[2016-05-24] MEDS: NEBIVOLOL HCL 5 MG TAB PO SCH (09:03)
[2016-05-24] MEDS: POLYETHYLENE GLYCOL 3350 17 GM PKT PO SCH (09:04)
[2016-05-24] MEDS: TIOTROPIUM INHALER 18 MCG/DOSE 5 DOSE/MDI IH SCH (09:04)
[2016-05-24] MEDS: SENNOSIDES 1 TAB PO SCH ×2 (09:04→21:06)
--- NOTE | 2016-05-24 09:20 | SOAPPROG ---
SOAP Progress Note Assessment/Plan: Assessment: * Debility following surgery for lumbar spinal stenosis. He underwent a L2 to S1 total lumbar interbody fusion on 05/05/16. Initial FIM 75 on 05/15/16; improved to 94 as of 05/22/16. Walked 400' and did 3 curb steps X 4 with supervision and cane. Supervision for ADLs but much cueing required for safety and spinal precautions. Unable to safely manage O2 tubing. Continue physical and occupational therapy to optimize his mobility and independence with activities of daily living. * Delirium. Cognitive impairment persisting. Decreased memory, new learning, problem solving and attention. Impulsive. Was unable to locate the current month in a calendar. Needs 24 hr supervision for safety. Seems to have poor recall for events of the morning today 05/23/16. Continue low stimulation and encourage sleep. Continue AEMT. * Pain control. Sustained release morphine and hydromorphone discontinued ; continues scheduled APAP and PRN oxycodone. Restart morphine SR 15 mg QHS to avoid pain events overnight. * Chronic obstructive pulmonary disease and hypoxia, likely exacerbated by anemia. No longer needing O2 since 05/23/16. Continue incentive spirometry, and inhalers that he was using prior to his admission. * Leukocytosis on CBC, chronic, stable, due to CLL. * Anemia, improving on CBC 05/22/16. * Abd pain/constipation. Verified on abd CT 05/20/16 and laxatives titrated; responding. * Hypertension. Adequate control. Continue amlodipine, enalapril, and nebivolol. * Diabetes mellitus, type 2. Continue metformin. He had insulin sliding scale ordered in the acute hospital, but it was not being used as his blood sugars were not sufficiently elevated. Per his request, ordered BS checks PRN. * Coronary artery disease. Continue clopidogrel. * Dyslipidemia. Continue atorvastatin. * Prophylaxis. Mobility much improved. Will d/c SCDs, EMMA hose and enoxaparin 05/22/16. * Code status. He is a full code. Currently needs 24 hr supervision for safety and spinal precautions. Hope for continued cognitive improvement. Tentative discharge 05/26/16, to home with . FOLLOWUP PLANS: He is to follow up with Dr. Day 05/26/16 at [address] Joiner. 05/24/16 09:18 Subjective: Had pain overnight; improved after getting out of bed and walking. O/W w/out complaint. Denies f/c, cough, dyspnea. Objective: Vital Signs Temp Pulse Resp BP Pulse Ox 36.4 C 83 16 128/70 H 92 05/24/16 07:31 05/24/16 07:31 05/24/16 07:31 05/24/16 09:03 05/24/16 07:31 Laboratory Results 05/22/16 14:50 05/14/16 11:00 05/23/16 05/24/16 05/25/16 05:59 05:59 05:59 Intake Total 1596 1880 Output Total 1200 1675 Balance 396 205 Physical Exam - Physical Exam General Appearance: WD/WN, alert, no apparent distress Respiratory: No respiratory distress, No accessory muscle use Cardiac/Chest: No edema Skin: normal color, warm/dry Neuro/Psych: no motor/sensory deficits, alert, normal mood/affect, oriented x 3 ICD10 Worksheet Patient Problems: Problems Problem Status Onset Chronic Disease Mgmt/Transitional Care Acute Chronic obstructive pulmonary disease with acute exacerbation Acute Fusion of spine of lumbar region Acute Hypoxia Acute
[2016-05-24 20:33] VITALS: PULSE 86
[2016-05-24] MEDS ORDERED: morphINE SR 15 MG TAB PO SCH (21:00)
[2016-05-25] MEDS: ACETAMINOPHEN 500 MG TAB PO SCH ×2 (05:11→14:32)
[2016-05-25] MEDS: oxyCODONE IR 5 MG TAB PO PRN ×3 (05:12→17:07)
[2016-05-25] MEDS: CLOPIDOGREL BISULFATE 75 MG TAB PO SCH (09:14)
[2016-05-25] MEDS: ATORVASTATIN CALCIUM 40 MG TAB PO SCH (09:14)
[2016-05-25] MEDS: ENALAPRIL MALEATE 20 MG TAB PO SCH (09:15)
[2016-05-25] MEDS: metFORMIN HCL 850 MG TAB PO SCH (09:16)
[2016-05-25] MEDS: (Mometasone/Formoterol [Dulera 200 Mcg/5 Mcg Inhaler] 2 PUFFS) IH SCH (09:16)
[2016-05-25] MEDS: GABAPENTIN 300 MG CAP PO SCH ×2 (09:16→14:32)
[2016-05-25] MEDS: NEBIVOLOL HCL 5 MG TAB PO SCH (09:17)
[2016-05-25] MEDS: TIOTROPIUM INHALER 18 MCG/DOSE 5 DOSE/MDI IH SCH (09:18)
[2016-05-25] MEDS: POLYETHYLENE GLYCOL 3350 17 GM PKT PO SCH (09:18)
[2016-05-25] MEDS: SENNOSIDES 1 TAB PO SCH (09:18)
[2016-05-25] MEDS: METHOCARBAMOL 750 MG TAB PO PRN (09:18)
[2016-05-25] MEDS: ONDANSETRON DISINTEGRATING 4 MG TAB PO PRN (11:27)
[2016-05-25 11:51] VITALS: BP 114/81; RESP 13; TEMP 97.5; O2SAT 93
--- NOTE | 2016-05-25 19:05 | GDS ---
ADMITTING DIAGNOSES: 1. Debility. 2. Status post lumbar surgery for lumbar spinal stenosis. DISCHARGE DIAGNOSES: 1. Debility. 2. Status post lumbar surgery for lumbar spinal stenosis. OTHER DISCHARGE DIAGNOSES: 1. Delirium. 2. Cognitive impairment. CONSULTATIONS: There was an emergency department visit for abdominal pain and vomiting. PROCEDURES: He had an abdominal CT scan done. COMPLICATIONS: He had difficulties with pain control and constipation. HISTORY AND HOSPITAL COURSE: Mr. Lino was admitted from [facility] where he had surgery on 05/04/2016, for lumbar spinal stenosis. He had an L2-S1 total lumbar interbody fusion. He had improvement in his premorbid sciatic pain. Hospital course was complicated by encephalopathy including combativeness. This was so severe that he had to be transferred to the intensive care unit where he was placed on IV dexmedetomidine. He was able to be weaned off over approximately 1-2 days and did not have subsequent combativeness. Overall, he did well in inpatient rehabilitation. His initial functional independence measure (FIM) was 75 on 05/15/2016. By 05/22/2016, this improved to 94. He is able to walk 400 feet and do 3 curb steps with supervision using a cane. He continued to require supervision for activities of daily living and mobility with much cuing for safety and to maintain spinal precautions. Regarding his delirium, he had considerable improvement in his alertness and recall, though he continued to have some decreased memory especially for new learning and decreased ability to problem solve. He was noted to have some impulsivity. Possible sedating medications were tapered or discontinued. However, he had continuing pain control needs, so opiates could not be stopped. On the day of discharge, Speech Therapy commented that he had variable memory for new information. For information related to remote and personally relevant information, he had better retention than for new learning. He could state his spinal precautions in a vague sense. Regarding chronic obstructive pulmonary disease, he had hypoxemia when he arrived. Anemia was thought to play a part. He was encouraged to use incentive spirometry. He was continued on his inhalers and did not require any oxygen after 05/23/2016. Regarding abdominal pain and constipation, there was also emesis on several occasions. Laxatives were titrated. Abdominal CT of 05/20/2016, to evaluate further regarding abdominal pain and constipation, showed right-sided constipation, a stable infrarenal abdominal aortic aneurysm and moderate stomach distention. Subsequently, his laxatives were titrated further. He was able to move his bowels and had considerable relief of his abdominal pain and constipation. His chronic conditions of hypertension, diabetes, coronary artery disease and dyslipidemia remained well controlled on his outpatient medications. LABORATORY DATA: Other labs and studies during his stay: CBC on 05/22/2016, revealed chronic leukocytosis consistent with his diagnosis of chronic lymphocytic leukemia with a white blood cell count of 13.15. He continued to have anemia with hemoglobin of 9.3 and hematocrit of 29.6. Platelet count was elevated at 464. Serum chemistry on 05/20/2016, revealed a slightly low chloride of 96. Otherwise, he had normal renal function and electrolytes. The lipase in evaluation of his abdominal pain was normal at 30. PHYSICAL EXAMINATION: VITAL SIGNS: On the day of discharge, blood pressure is 114/81, heart rate is 86, respiratory rate 13, oxygen saturation 93% on room air , temperature 36.4 degrees centigrade. GENERAL: This is a well-nourished, well -developed man sitting in his chair in mild discomfort. Cooperative and in no acute distress. HEART: There is regular rate and rhythm. There is a 2/6 systolic murmur auscultated at both the left and right sternal borders. LUNGS: Clear to auscultation bilaterally. ABDOMEN: Soft, nontender, nondistended with normoactive bowel sounds. EXTREMITIES: There is no cyanosis, clubbing, or edema. NEUROLOGIC: He is alert and oriented x3. Cranial nerves 2-12 are grossly intact. There is no focal weakness. Sensation is intact to light touch. Gait is overall normal, walking with a trekking pole. DISCHARGE PLAN: 1. Condition upon discharge is good. 2. Activity is ad bal, but he must maintain spinal precautions with no bending , lifting, or twisting. He should have supervision for safety with mobility and activities of daily living. 3. Diet is regular. 4. Date of next appointment: He is to follow up with neurosurgeon, Dr. Sethi, on 05/27/2015, at 10 a.m. He is to follow up with his primary care provider, Dr. Joiner, on 06/05/2016 at 10 a.m. MEDICATIONS AT DISCHARGE: 1. Oxycodone 10-20 mg p.o. q.4 hours p.r.n. 2. Morphine sustained release 15 mg p.o. at bedtime. 3. Metformin 850 mg p.o. twice daily. 4. Amlodipine 2.5 mg p.o. daily. 5. Tiotropium 18 mcg inhaled daily. 6. Senna 2 tabs p.o. b.i.d. 7. Polyethylene glycol 17 g in water p.o. daily. 8. Nebivolol 2.5 mg p.o. daily. 9. Mometasone/formoterol 2 puffs inhaled twice daily. 10. Methocarbamol 750 mg p.o. q.4 hours p.r.n. 11. Gabapentin 300 mg p.o. t.i.d. with an additional 300 mg q.h.s. 12. Enalapril 10 mg p.o. daily. 13. Clopidogrel 75 mg p.o. daily. 14. Atorvastatin 40 mg p.o. daily. 15. Albuterol 1-2 puffs q.4 hours p.r.n. 16. Acetaminophen 1000 mg p.o. q.8 hours p.r.n. ISSUES TO BE ADDRESSED AT FOLLOWUP: 1. Functional status regarding mobility and activities of daily living. He will continue physical and occupational therapies. He can follow up further with his primary care provider. 2. Status post lumbar spinal stenosis. He continued to have pain, mostly adjacent to his distal incision. He also had some discomfort from his lumbar corset. He can follow up on this issue with Dr. Sethi. If he needs refills of pain medications, he will be seeing his primary care provider, Dr. Joiner. 3. Cognitive impairment, status post delirium. This has been gradually improving. He will continue to work with Speech and Language Pathology after his discharge. Again, he can follow up with his primary care provider, Dr. Joiner. 4. Anemia. Advise a repeat CBC in 1-2 weeks to ensure that he is reconstituting his blood counts. /[id number]/MODL MTDD
== END 2016-05-25 17:16 | disposition home health service (06) | DRG 949 ==
LOC: BREH 05-13 14:45
PROVIDERS: ADMIT Internal Medicine; ATTEND Internal Medicine
DX: Z48.811 Encounter for surgical aftercare following surgery on the nervous system (principal); F05 Delirium due to known physiological condition; C91.10 Chronic lymphocytic leukemia of B-cell type not having achieved remission; Z98.1 Arthrodesis status; R09.02 Hypoxemia; D64.9 Anemia, unspecified; E11.51 Type 2 diabetes mellitus with diabetic peripheral angiopathy without gangrene; M62.830 Muscle spasm of back; M62.838 Other muscle spasm; J44.9 Chronic obstructive pulmonary disease, unspecified; I25.10 Atherosclerotic heart disease of native coronary artery without angina pectoris; I10 Essential (primary) hypertension; K59.00 Constipation, unspecified; E78.5 Hyperlipidemia, unspecified; Z79.84 Long term (current) use of oral hypoglycemic drugs; Z95.5 Presence of coronary angioplasty implant and graft; Z79.51 Long term (current) use of inhaled steroids; Z91.041 Radiographic dye allergy status
CPT/HCPCS: 92507-GN; 92522-GN; 92526; 92610; 97110-GO; 97110-GP; 97112-GP; 97116-GP; 97162-GP; 97166-GO; 97530-GO; 97530-GP; 97535-GO; 99366-GO; J1650

== ENCOUNTER 2016-05-20 20:01 | Emergency (ER) | payer OTHER, BC ==
--- NOTE | 2016-05-20 20:10 | EDPHY ---
H & P Smoking Status: Former smoker Time Seen by Provider: 05/20/16 20:04 HPI/ROS: Chief complaint. Abdominal pain, vomiting HPI. 75-year-old male here by EMS from rehab at [facility] and [facility]. He had lumbar surgery showing a fusion from L2-S1 on May 04. He was sent to rehab on May 13. Postop recovery was complicated by encephalopathy and anemia. Apparently he has been having some constipation had an enema and then was throwing up today. He does have some diffuse abdominal pain as his only complaint. Decreased gas and stool per rectum. No fever ROS Constitutional. no fever/chills, no weakness Eyes. no problems with vision ENT. no sore throat, no nasal drainage Cardiovascular. no chest pain Respiratory. no shortness of breath, no cough Abdominal. Diffuse abdominal pain with nausea and vomiting . no problems urinating MS. no calf pain/swelling, no neck/back pain, no joint pain Skin. no rash Lymph. no swollen glands Neuro. no headache, no dizziness, no difficulty walking or with speech (Willis Gilmore) Past Medical/Surgical History: Past medical history seen for COPD, CLL, diabetes, hypertension, coronary artery disease with stent, per peripheral vascular disease. History of abdominal aortic aneurysm. Dyslipidemia. Back surgeries. Sleep apnea (Willis Gilmore) Social History: , nonsmoker, no alcohol (Willis Gilmore) Physical Exam: General Appearance: Alert well-developed male mild distress vital signs are stable Eyes: Pupils equal and round no pallor or injection. ENT, Mouth: Mucous membranes are moist. Respiratory: There are no retractions, lungs are clear to auscultation. Cardiovascular: Regular rate and rhythm. Gastrointestinal: Abdomen is soft and is diffusely tender. No masses. Hypoactive bowel sounds that may be suggestive of bowel obstruction Neurological: Awake and alert, sensory and motor exams grossly normal. Skin: Warm and dry, no rashes. Musculoskeletal: Neck is supple nontender. Extremities symmetrical, full range of motion. Psychiatric: Patient is oriented X 3, there is no agitation. (Willis Gilmore) Constitutional: Initial Vital Signs Temperature (C) 36.8 C 05/20/16 20:17 Heart Rate 92 05/20/16 20:17 Respiratory Rate 16 05/20/16 20:17 Blood Pressure 137/85 H 05/20/16 20:17 O2 Sat (%) 97 05/20/16 20:17 O2 Delivery Mode Room Air Allergies/Adverse Reactions: Iodinated Contrast Media - Oral and Allergy (Intermediate, Verified 05/20/16 20: 15) Hives contrast dye Allergy (Intermediate, Uncoded 05/20/16 20:15) Hives Home Medications: Medication Instructions Recorded metFORMIN HCL [Glucophage 850 mg 850 mg PO BID 09/20/11 (*)] Atorvastatin Calcium [Lipitor 40 40 mg PO DAILY #0 05/27/15 mg (*)] Enalapril/Hydrochlorothiazide 1 tab PO DAILY 05/27/15 [Enalapril-Hctz 10-25 mg Tablet] Mometasone/Formoterol [Dulera 200 2 puffs IH BID 05/27/15 Mcg/5 Mcg Inhaler] Nebivolol HCl [Bystolic] 2.5 mg PO DAILY 05/27/15 Tiotropium Inhaler [Spiriva 18 mcg IH DAILY 05/27/15 Handihaler] Albuterol [Proventil Inhaler HFA 1 - 2 puffs IH DAILY PRN 03/10/16 (*)] amLODIPine BESYLATE [Norvasc 2.5 2.5 mg PO DAILY 03/10/16 mg (*)] Diazepam [Valium 5 MG (*)] 2.5 - 5 mg PO QID PRN #0 tab 03/26/16 Ondansetron Odt [Zofran Odt 4 mg 4 - 8 mg PO Q6HRS PRN #0 tab 03/26/16 (*)] Sennosides/Docusate Sodium 1 - 2 tab PO BID #0 tab 03/26/16 [Senokot-S] Acetaminophen [Tylenol ES 500 mg 1,000 mg PO Q8 PRN #0 tab 05/13/16 (*)] Albuterol [Proventil Neb] 3 ml IH Q2 PRN #0 deyvial 05/13/16 Clopidogrel Bisulfate [Plavix (*)] 75 mg PO DAILY #0 tab 05/13/16 Enalapril Maleate [Vasotec 10 MG 10 mg PO DAILY #0 tab 05/13/16 (*)] Enoxaparin [Lovenox 40 MG (*)] 40 mg SC DAILY #0 syr 05/13/16 Gabapentin [Neurontin 300 MG (*)] 300 mg PO BID #0 cap 05/13/16 HYDROmorphone HCL [Dilaudid 2 mg 2 - 4 mg PO Q4HRS PRN #0 tab 05/13/16 (*)] Hydrocodone/APAP 5/325 [Irving 1 - 2 tab PO Q4 PRN #0 tab 05/13/16 5/325 (*)] Lidocaine 5% [Lidoderm 5% Patch 1 patch TD DAILY 05/13/16 (*)] Melatonin [Melatonin 3 MG (*)] 6 mg PO HS #0 tab 05/13/16 Methocarbamol [Robaxin 750 mg (*)] 750 mg PO Q4 PRN #0 tab 05/13/16 Methocarbamol [Robaxin 750 mg (*)] 750 mg PO Q8H #0 tab 05/13/16 oxyCODONE IR [Oxycodone Ir (*)] 5 - 10 mg PO Q4 PRN #0 tab 05/13/16 Medical Decision Making - Diagnostics Imaging: CT scan of abdomen and pelvis with IV contrast: Significant for some right- sided constipation but no evidence of bowel obstruction or other acute surgical pathology. AAA is stable. Lumbar surgery hardware intact. No other significant acute findings. Results were discussed with staff radiologist Dr. Rogelio Sanchez. (Enrico Qureshi) Procedures: IV normal saline. Patient is allergic to contrast dye so he is pretreated with intravenous Benadryl and Solu-Medrol (Willis Gilmore) ED Course/Re-evaluation: On serial evaluations patient is stable (Willis Gilmore) I took over care of this patient at 10:00 p.m.. This patient was awaiting results of a CT scan of the abdomen and pelvis to evaluate for possible small bowel obstruction. 10:30 p.m., patient re-evaluated. Results of CT scan discussed with him. He reports that his pain has significantly improved. 10:45 p.m., spoke with Dr. Collins at [facility]. He feels very comfortable accepting this patient back to the rehab center. I discussed aggressive treatment of his constipation with Dr. Collins. 11:05 p.m., patient re-evaluated. Repeat abdominal exam is soft, nontender nondistended. He is taking fluids orally without issue. He and his family feel comfortable with him being transferred back to [facility]. They however are asking for ambulance transport. Considering the patient's surgical history and fragile condition, I feel this is appropriate. Return to emergency department precautions were discussed with them. All of their questions were answered. Ambulance transport was arranged. The patient was transferred back to [facility] in stable and improved condition. ( Enrico Qureshi) Differential Diagnosis: I am suspicious the patient may have a bowel obstruction. He may have constipation. I am also considering diverticulitis, appendicitis, worsening of his abdominal aortic aneurysm (Willis Gilmore) Care Turn Over: Dr. Qureshi at 2145 (Willis Gilmore) - Data Points Laboratory Results: Laboratory Results 05/20/16 20:50 05/20/16 20:50 Medications Given: Discontinued Medications Diphenhydramine HCl (Benadryl Injection) 25 mg IVP EDNOW ONE Stop: 05/20/16 20:34 Last Admin: 05/20/16 20:56 Dose: 25 mg Sodium Chloride (Ns) 1,000 mls @ 0 mls/hr IV ONCE ONE PRN Reason: Wide Open Stop: 05/20/16 20:34 Last Admin: 05/20/16 20:55 Dose: 1,000 mls Methylprednisolone Sodium Succinate (Solu-Medrol) 125 mg IVP EDNOW ONE Stop: 05/20/16 20:34 Last Admin: 05/20/16 20:56 Dose: 125 mg Departure - Departure Disposition: Acute Care Hospital [facility] Clinical Impression: Abdominal pain, Constipation Condition: Good Instructions: Constipation (ED), High Fiber Diet (ED) Additional Instructions: Read and follow provided instructions. Dr. Collins is aware that your being return to the rehab center. He will manage your constipation appropriately. Return to the emergency department for worsening abdominal pain, vomiting, fever or other serious concerns. Referrals: Patient,NotPresent [Unknown] - As per Instructions
[2016-05-20 20:20] VITALS: RESP 16
[2016-05-20] MEDS ORDERED: NS 1,000 ML IV ONE (20:33)
[2016-05-20] MEDS ORDERED: methylPREDNISolone SOD SUCC 125 MG/2 ML VIAL IVP ONE (20:33)
[2016-05-20 21:03] LABS: % IMMATURE GRANULYOCYTES 0.5 % (0.0-1.1); ABSOLUTE IMMATURE GRANULOCYTES 0.09 10^3/uL (0.00-0.10); ADD DIFF? NO; ADD MORPH? NO; ADD SCAN? NO; ATYPICAL LYMPHOCYTE FLAG 10 (0-99); FRAGMENT RBC FLAG 10 (0-99); HEMATOCRIT 30.8 % (40.0-51.0); HEMOGLOBIN 9.8 g/dL (13.7-17.5); LEFT SHIFT FLG 0 (0-99); LIPEMIA HEMOLYSIS FLAG 80 (0-99); MEAN CELL HEMOGLOBIN CONCENTR. 31.8 g/dL (32.4-36.7); MEAN CELL VOLUME 91.1 fL (81.5-99.8); MEAN PLATELET VOLUME 10.3 fL (8.7-11.7); PLATELET CLUMPS FLAG 10 (0-99); PLATELET COUNT 484 10^3/uL (150-400); RED BLOOD CELL COUNT 3.38 10^6/uL (4.40-6.38); RED CELL DISTRIBUTION WIDTH 14.2 % (11.5-15.2)
[2016-05-20] MEDS ORDERED: IOPAMIDOL (ISOVUE-300) 100 ML BTL IV ONE (21:10)
[2016-05-20 21:17] LABS: ANION GAP 9 mEq/L (8-16); CALCIUM 9.8 mg/dL (8.5-10.4); CARBON DIOXIDE 29 mEq/l (22-31); CHLORIDE 96 mEq/L (97-110); GLOMERULAR FILTRATION RATE > 60; GLUCOSE 137 mg/dL (70-100); POTASSIUM 4.1 mEq/L (3.5-5.2); SODIUM 134 mEq/L (134-144)
[2016-05-20 23:12] VITALS: BP 139/86; PULSE 91; TEMP 97.7; O2SAT 98
== END 2016-05-20 23:55 | disposition short-term general hospital (02) ==
LOC: EDUNIT#
DX: K59.00 Constipation, unspecified (principal); J44.9 Chronic obstructive pulmonary disease, unspecified; I10 Essential (primary) hypertension; E11.9 Type 2 diabetes mellitus without complications; Z87.891 Personal history of nicotine dependence
CPT/HCPCS: 74177; 96361; 96374; 96375; 99285; J1200; Q9967

== ENCOUNTER 2016-06-03 12:05 | Emergency (ER) | payer OTHER, BC ==
[2016-06-03 12:09] VITALS: TEMP 97.9
[2016-06-03] MEDS ORDERED: MAGNESIUM CITRATE 300 ML BOTTLE PO ONE (12:35)
--- NOTE | 2016-06-03 12:42 | EDPHY ---
H & P Stated Complaint: ABD PAIN, CONSTIPATION- LBM "NORMAL COUPLE WEEKS Time Seen by Provider: 06/03/16 12:15 HPI/ROS: CHIEF COMPLAINT: abdominal pain, constipation HISTORY OF PRESENT ILLNESS: 75-year-old male presents emergency department with his complaining of constipation. Patient had a lumbar fusion in April and recently was discharged home from the [place] to clinic. The patient was seen in the emergency department 2 weeks ago for similar symptoms, CT abdomen pelvis showed right-sided constipation. The patient reports he took Mag citrate a few days ago which produced a bowel movement and his pain resolved. He has not had a bowel movement since then. Patient denies fevers or chills, reports nausea, is being weaned off of his pain medications. REVIEW OF SYSTEMS: A comprehensive 10 point review of systems is otherwise negative aside from elements mentioned in the history of present illness. Source: Patient Exam Limitations: No limitations - Personal History Current Tetanus/Diphtheria Vaccine: Yes Current Tetanus Diphtheria and Acellular Pertussis (TDAP): Yes Tetanus Vaccine Date: >10 YRS - Medical/Surgical History Hx Asthma: No Hx Chronic Respiratory Disease: Yes Hx Diabetes: Yes Hx Cardiac Disease: Yes Hx Renal Disease: No Hx Cirrhosis: No Hx Alcoholism: No Hx HIV/AIDS: No Hx Splenectomy or Spleen Trauma: No Other PMH: COPD, CLL 10 yrs ago, DM, HTN, CAD S/P Stent, AAA, PVD with L iliac graft, Cervical laminectomy (7 months ago), Hypercholestremia, knee surgeries, scoliosis, stenosis, L2-S1 fusion - Social History Smoking Status: Former smoker - Physical Exam Exam: Physical Exam Gen: Alert and Oriented, grimacing HEENT: PERRL, moist mucous membranes NECK: no meningismus CV: regular rate and regular rhythm PULM: CTAB, no wheezes ABDOMEN: soft, mild lower abdominal tenderness to palpation, no masses, normal bowel sounds Rectal: No stool in vault, normal rectal tone BACK: Incision midline healing well, no surrounding erythema, no drainage NEURO: Neurologically grossly intact EXTREMITIES: normal appearing SKIN: no rash or break in skin on exposed skin PSYCH: answers questions appropriately. Constitutional: Initial Vital Signs Temperature (C) 36.6 C 06/03/16 12:06 Heart Rate 94 06/03/16 12:06 Respiratory Rate 18 06/03/16 12:06 Blood Pressure 130/91 H 06/03/16 12:06 O2 Sat (%) 94 06/03/16 12:06 O2 Delivery Mode Room Air Allergies/Adverse Reactions: Iodinated Contrast Media - Oral and Allergy (Intermediate, Verified 06/03/16 12: 14) Hives contrast dye Allergy (Intermediate, Uncoded 05/20/16 20:15) Hives Home Medications: Medication Instructions Recorded Acetaminophen [Tylenol ES 500 mg 1,000 mg PO Q8 PRN #0 tab 05/13/16 (*)] Albuterol [Proventil Inhaler HFA 1 - 2 puffs IH Q4 PRN #1 mdi 05/25/16 (*)] Atorvastatin Calcium [Lipitor 40 40 mg PO DAILY #30 tab 05/25/16 mg (*)] Clopidogrel Bisulfate [Plavix (*)] 75 mg PO DAILY #30 tab 05/25/16 Enalapril Maleate [Vasotec 10 MG 10 mg PO DAILY #30 tab 05/25/16 (*)] Gabapentin [Neurontin 300 MG (*)] 300 mg PO HS #30 cap 05/25/16 Gabapentin [Neurontin 300 MG (*)] 300 mg PO TID #90 cap 05/25/16 Methocarbamol [Robaxin 750 mg (*)] 750 mg PO Q4 PRN #30 tab 05/25/16 Mometasone/Formoterol [Dulera 200 2 puffs IH BID #1 hfa.aer.ad 05/25/16 Mcg/5 Mcg Inhaler] Nebivolol HCl [Bystolic] 2.5 mg PO DAILY #30 tablet 05/25/16 Polyethylene Glycol 3350 [Miralax 17 gm PO DAILY #0 pkt 05/25/16 17 gm (*)] Sennosides [Senokot] 2 tab PO BID #0 tab 05/25/16 Tiotropium Inhaler [Spiriva 18 mcg IH DAILY #1 mdi 05/25/16 Handihaler] amLODIPine BESYLATE [Norvasc 2.5 2.5 mg PO DAILY #30 tab 05/25/16 mg (*)] metFORMIN HCL [Glucophage 850 mg 850 mg PO BID #90 tab 05/25/16 (*)] morphINE SR [Ms Contin/Oramorph 15 15 mg PO HS #30 tab 05/25/16 mg (*)] oxyCODONE IR [Oxycodone Ir (*)] 10 - 20 mg PO Q4HRS PRN #60 tab 05/25/16 Medical Decision Making ED Course/Re-evaluation: Fleets enema given to the patient. He had a moderate sized soft BM and his pain resolved. Patient will be discharged home, I have recommended he mix MiraLax with Gatorade and drink this over the next couple days. He is to follow up with his primary care doctor. Patient has been given strict return precautions for any return of symptoms, fevers, vomiting, any other questions or concerns. Differential Diagnosis: The differential diagnosis for the patient's abdominal pain included but was not limited to appendicitis, hernia, constipation, AAA. Departure - Departure Disposition: Home, Routine, Self-Care Clinical Impression: Constipation Qualifiers: Constipation type: drug induced constipation Qualified Code(s): K59.03 - Drug induced constipation Condition: Good Instructions: Constipation (ED) Additional Instructions: Go to the grocery store, by 1 bottle of MiraLax and 1 gallon of Gatorade. Mix these together. Take half of this and drink 8 ounces every 20 minutes. If this does not produce results, the next day take the second 1/2 gallon of the mixture and drink 8 ounces every 20 minutes. Stay hydrated. Drink plenty of fluids. Follow-up with your primary care doctor. Return to the emergency department for any new symptoms or concerns, pain that is not controlled, worsening abdominal pain, any other questions or concerns. Referrals: Dillon Joiner MD [Primary Care Provider] - As per Instructions
[2016-06-03 14:24] VITALS: BP 118/74; PULSE 82; RESP 16; O2SAT 96
== END 2016-06-03 14:24 | disposition home or self-care (01) ==
DX: K59.03 Drug induced constipation (principal); E11.9 Type 2 diabetes mellitus without complications; J44.9 Chronic obstructive pulmonary disease, unspecified; I10 Essential (primary) hypertension; I25.10 Atherosclerotic heart disease of native coronary artery without angina pectoris; Z87.891 Personal history of nicotine dependence; Z95.5 Presence of coronary angioplasty implant and graft

== ENCOUNTER → 2016-07-26 | Outpatient (CLI) | payer OTHER, BC | LOC: FIMAGING 14:30 | PROVIDERS: ATTEND Physician Assistant Surgical | DX: Z09 Encounter for follow-up examination after completed treatment for conditions other than malignant neoplasm (principal); Z98.1 Arthrodesis status; M47.896 Other spondylosis, lumbar region; M43.12 Spondylolisthesis, cervical region; I65.29 Occlusion and stenosis of unspecified carotid artery; C91.10 Chronic lymphocytic leukemia of B-cell type not having achieved remission; J44.9 Chronic obstructive pulmonary disease, unspecified; E11.9 Type 2 diabetes mellitus without complications; I10 Essential (primary) hypertension | CPT/HCPCS: 72040; 72100; G0463 ==

== ENCOUNTER → 2016-12-06 | Outpatient (CLI) | payer OTHER, BC | LOC: FIMAGING 11:36 | PROVIDERS: ATTEND Physician Assistant Surgical | DX: Z09 Encounter for follow-up examination after completed treatment for conditions other than malignant neoplasm (principal); Z98.1 Arthrodesis status ==

== ENCOUNTER → 2017-03-05 | Outpatient (CLI) | payer OTHER, BC | LOC: FIMAGING 12:27 | PROVIDERS: ATTEND Physician Assistant Surgical | DX: Z09 Encounter for follow-up examination after completed treatment for conditions other than malignant neoplasm (principal); Z98.1 Arthrodesis status ==

== ENCOUNTER → 2017-04-12 | Outpatient (CLI) | payer OTHER, BC | LOC: FIMAGING 11:54 | PROVIDERS: ATTEND Internal Medicine | DX: J43.9 Emphysema, unspecified (principal); R06.02 Shortness of breath; Z98.1 Arthrodesis status ==

== ENCOUNTER 2017-07-05 12:39 | Emergency (ER) | payer OTHER, BC ==
[2017-07-05] MEDS ORDERED: OXYMETAZOLINE 30 ML NASAL SPRAY ONE (13:02)
[2017-07-05] MEDS ORDERED: SILVER NITRATE APPLICATOR 1 APPL TP ONE (13:03)
[2017-07-05] MEDS ORDERED: OXYMETAZOLINE 30 ML NASAL SPRAY EACHNARE ONE (13:17)
[2017-07-05] MEDS ORDERED: TRANEXAMIC ACID 1,000 MG/10 ML VIAL TP ONE (13:17)
--- NOTE | 2017-07-05 13:34 | EDPHY ---
General Time Seen by Provider: 07/05/17 13:16 Narrative: CHIEF COMPLAINT: Nosebleed HISTORY OF PRESENT ILLNESS: Patient presents with complaints of nosebleed that started around 2 hr prior to arrival. He was at rest when this started spontaneously. No trauma or injury. He feels that his nodules have been dry and he recently flew to [place]. He does wear oxygen at night. He has no chest pain or shortness of breath. No lightheadedness or syncope. Bleeding has slowed with pressure. He does not feel any bleeding of the posterior pharynx. He does take Plavix for coronary artery disease status post stents. No nausea but no vomiting. No other associated complaints or modifying factors. He has had previous episode of epistaxis that required cautery. REVIEW OF SYSTEMS: Ten systems reviewed and are negative unless otherwise noted in the HPI PCP: Dr. Chapman SPECIALISTS: Dr. Agosto PAST MEDICAL HISTORY: Coronary artery disease, COPD, CLL, diabetes mellitus, hypertension, AAA, peripheral vascular disease, cervical radiculopathy, dyslipidemia, osteoarthritis, scoliosis, spinal stenosis PAST SURGICAL HISTORY: Cardiac stents, PVD graft, laminectomy, L2-S1 fusion SOCIAL HISTORY: Nonsmoker. Lives here locally, independently FAMILY HISTORY: Noncontributory EXAMINATION General Appearance: Alert, no distress. Well-developed well-nourished. Ambulating in his room without difficulty. Head: normocephalic, atraumatic Eyes: Pupils equal and round, no conjunctival pallor or injection ENT, Mouth: Mucous membranes moist. There is dried blood in the right nostril. There is mild bleeding from the left nostril when the clip was removed. No bleeding in the posterior pharynx. Airway widely patent with no edema. Respiratory: Lungs are clear to auscultation Cardiovascular: Regular rate and rhythm. No murmur Gastrointestinal: Abdomen is soft and nontender Neurological: A&O, nonfocal, normal gait Skin: Warm and dry, no rash no petechiae or purpura Extremities: Nontender, no pedal edema Psychiatric: Mood and affect normal DIFFERENTIAL DIAGNOSES: Including but not limited to acute anterior epistaxis, epistaxis on anticoagulation, acute posterior epistaxis, acute blood-loss anemia, coagulopathy MDM: 1:15 p.m. Acute left-sided epistaxis. There was mild bleeding at time of examination. I administered Afrin, mucosal topical lidocaine with epinephrine. I was then able to examine the nostril with nasal speculum and visualize a small area of bleeding. This was cauterized with silver nitrate successfully. The clip was replaced and I will monitor him. Vital signs are stable. No acute distress. No bleeding in the posterior pharynx. No bleeding from any other site. 2:05 p.m. Patient re-evaluated. No bleeding from the left nostril with clip in place but I have removed the clip and I will monitor for rebleeding. 2:25 p.m. Patient re-evaluated. He felt that he was starting to bleed again. I examine the left nostril I did not appreciate any evidence of bleeding. 2:40 p.m. Patient re-evaluated. He does have very mild bleeding from the anterior left nostril. I am not able to visualize exactly where this is coming from. I placed a cotton ball that was soaked and topical TXA and replaced the nasal clip. He is refusing nasal packing at this time and requesting that I call ENT. I will page and discuss with them 2:55 p.m. Case discussed with ENT physician Dr. Soto. He informed me they be happy to evaluate the patient. He said that we may send him directly to the office. I discussed this with the patient he agrees to this. He will be taken over there by us any wheelchair. At this time he has minimal bleeding, no bleeding around the TXA cotton ball in nostril. PROCEDURE: Epistaxis management Indication: epistaxis, left-sided Consent: verbal Description: Left nostril was treated topically with Afrin and 0.5% Marcaine plain 3 mL. I then examined using a speculum. The nostril was well visualized with small area of bleeding identified medially. I was able to cauterize this with silver nitrate successfully. Nose clip was replaced and I will monitor him. No packing in place at this time. Follow-up: ENT in 2-3 days. ED for return of bleeding. SUPERVISION: Patient was independently examined, but I discussed the case with my secondary supervising physician Dr. Greco - History Smoking Status: Current every day smoker - Objective Vital Signs: Initial Vital Signs Temperature (C) 97.5 F 07/05/17 12:43 Heart Rate 79 07/05/17 12:43 Respiratory Rate 18 07/05/17 12:43 Blood Pressure 155/97 H 07/05/17 12:43 O2 Sat (%) 94 07/05/17 12:43 O2 Delivery Mode Room Air Allergies/Adverse Reactions: Iodinated Contrast- Oral and IV Dye [Iodinated Contrast Media - Oral and] Allergy (Intermediate, Verified 07/05/17 12:42) Hives contrast dye Allergy (Intermediate, Uncoded 05/20/16 20:15) Hives Home Medications: Medication Instructions Recorded Acetaminophen [Tylenol ES 500 mg 1,000 mg PO Q8 PRN #0 tab 05/13/16 (*)] Albuterol [Proventil Inhaler HFA 1 - 2 puffs IH Q4 PRN #1 mdi 05/25/16 (*)] Atorvastatin Calcium [Lipitor 40 40 mg PO DAILY #30 tab 05/25/16 mg (*)] Clopidogrel Bisulfate [Plavix (*)] 75 mg PO DAILY #30 tab 05/25/16 Enalapril Maleate [Vasotec 10 MG 10 mg PO DAILY #30 tab 05/25/16 (*)] Gabapentin [Neurontin 300 MG (*)] 300 mg PO HS #30 cap 05/25/16 Gabapentin [Neurontin 300 MG (*)] 300 mg PO TID #90 cap 05/25/16 Methocarbamol [Robaxin 750 mg (*)] 750 mg PO Q4 PRN #30 tab 05/25/16 Mometasone/Formoterol [Dulera 200 2 puffs IH BID #1 hfa.aer.ad 05/25/16 Mcg/5 Mcg Inhaler] Nebivolol HCl [Bystolic] 2.5 mg PO DAILY #30 tablet 05/25/16 Polyethylene Glycol 3350 [Miralax 17 gm PO DAILY #0 pkt 05/25/16 17 gm (*)] Sennosides [Senokot] 2 tab PO BID #0 tab 05/25/16 Tiotropium Inhaler [Spiriva 18 mcg IH DAILY #1 mdi 05/25/16 Handihaler] amLODIPine BESYLATE [Norvasc 2.5 2.5 mg PO DAILY #30 tab 05/25/16 mg (*)] metFORMIN HCL [Glucophage 850 mg 850 mg PO BID #90 tab 05/25/16 (*)] morphINE SR [Ms Contin/Oramorph 15 15 mg PO HS #30 tab 05/25/16 mg (*)] oxyCODONE IR [Oxycodone Ir (*)] 10 - 20 mg PO Q4HRS PRN #60 tab 05/25/16 Medications Given: Discontinued Medications Oxymetazoline HCl (Afrin Nasal [place]) 2 sprays EACHNARE EDNOW ONE Stop: 07/05/17 13:18 Last Admin: 07/05/17 13:37 Dose: 2 sprays Tranexamic Acid (Cyklokapron) 500 mg TP EDNOW ONE Stop: 07/05/17 13:18 Last Admin: 07/05/17 14:00 Dose: 500 mg Departure - Departure Disposition: Home, Routine, Self-Care Clinical Impression: Acute anterior epistaxis, Medication induced coagulopathy Condition: Good Instructions: Nosebleed (ED) Additional Instructions: 1. Proceed directly to Dr. Soto is office on this floor 2. Return to ED for any return of bleeding, headache, chest pain, lightheadedness, posterior bleeding Referrals: Ayala Chapman MD [Primary Care Provider] - As per Instructions Tiago Soto MD [Medical Doctor] - As per Instructions
[2017-07-05 15:43] VITALS: BP 139/95
== END 2017-07-05 15:30 | disposition home or self-care (01) ==
PROC: 3E09XTZ Introduction of Destructive Agent into Nose, External Approach (ICD-10-PCS; principal; 2017-07-05)
DX: R04.0 Epistaxis (principal); D68.9 Coagulation defect, unspecified; I25.10 Atherosclerotic heart disease of native coronary artery without angina pectoris; J44.9 Chronic obstructive pulmonary disease, unspecified; E11.9 Type 2 diabetes mellitus without complications; I10 Essential (primary) hypertension; F17.200 Nicotine dependence, unspecified, uncomplicated; Z79.84 Long term (current) use of oral hypoglycemic drugs; Z79.01 Long term (current) use of anticoagulants

== ENCOUNTER → 2017-08-10 | Outpatient (CLI) | payer OTHER, BC | LOC: FIMAGING 07:43 | PROVIDERS: ATTEND Internal Medicine | DX: N18.3 Chronic kidney disease, stage 3 (moderate) (principal); N28.1 Cyst of kidney, acquired; N40.2 Nodular prostate without lower urinary tract symptoms ==

== ENCOUNTER → 2018-02-25 | Outpatient (CLI) | payer OTHER, BC | LOC: FIMAGING 15:37 | PROVIDERS: ATTEND Physician Assistant Surgical | DX: M43.12 Spondylolisthesis, cervical region (principal); Z98.1 Arthrodesis status ==

== ENCOUNTER → 2018-09-18 | Outpatient (CLI) | payer OTHER, BC | LOC: BHFA 10:00 ==